=== PATIENT | male | born 1990 | race Caucasian/White ===

== ENCOUNTER → 2017-10-07 | Outpatient (CLI) | payer BC, MEDICAID ==
[2017-10-07 11:10] LABS: CHOLESTEROL 126.04 mg/dL (0-200); TRIGLYCERIDES 47 mg/dL (<150)
[2017-10-07 11:21] LABS: DIRECT LDL 77 mg/dL (<100)
== END ==
LOC: OD 09:51
PROVIDERS: ATTEND Psychiatry & Neurology Psychiatry
DX: F41.0 Panic disorder [episodic paroxysmal anxiety] (principal)
CPT/HCPCS: 36415; 80061; 83036

== ENCOUNTER 2017-11-08 04:28 | Inpatient (IN) | payer BC, MEDICARE, MEDICAID ==
[2017-11-08] MEDS ORDERED: FENTANYL CITRATE INJ/PF 100 MCG/2 ML AMPUL IV ONE (04:59)
[2017-11-08] MEDS ORDERED: ONDANSETRON HCL INJ/PF 4 MG/2 ML SDV IV ONE (04:59)
[2017-11-08] MEDS ORDERED: ERTAPENEM SODIUM INJ 1 GM VIAL IV ONE (05:00)
[2017-11-08] MEDS ORDERED: ONDANSETRON 4 MG TAB.RAPDIS PO ONE (05:01)
--- NOTE | 2017-11-08 05:06 | ER Document Report ---
ED General - General Chief Complaint: Abdominal Pain Stated Complaint: ABDOMINAL PAIN Time Seen by Provider: 11/08/17 04:59 Notes: Patient is a 27-year-old male presents with complaint of right upper quadrant abdominal pain, vomiting, diarrhea, and feeling unwell for 4 days. Mother says he does have history of gallbladder disease. He was at [facility] proximal 5 years ago. At that time an ERCP which improved his symptoms. They decided not to take his gallbladder that time. Since that is been doing well until 4 days ago was having some vomiting diarrhea. Onset is difficult to tell how sick he was until today. Today he started having weakness. He comes in diaphoretic and sweaty and septic appearing. Patient points to his right upper quadrant as the location pain. Patient has a history of schizophrenia and autism. Patient's only allergy is anaphylaxis to IV contrast dye. TRAVEL OUTSIDE OF THE [place] IN LAST 30 DAYS: No - Related Data Allergies/Adverse Reactions: No Known Drug Allergies Allergy (Verified 05/26/12 16:26) Past Medical History - Social History Smoking Status: Never Smoker Frequency of alcohol use: None Drug Abuse: None Family History: Reviewed & Not Pertinent - Past Medical History Cardiac Medical History: Denies: Hx Coronary Artery Disease, Hx Heart Attack, Hx Hypertension Pulmonary Medical History: Denies: Hx Asthma, Hx Bronchitis, Hx COPD, Hx Pneumonia Neurological Medical History: Denies: Hx Cerebrovascular Accident, Hx Seizures Musculoskeltal Medical History: Denies Hx Arthritis Past Surgical History: Denies: Hx Pacemaker - Immunizations Hx Diphtheria, Pertussis, Tetanus Vaccination: Yes Review of Systems - Review of Systems Notes: My Normal Review Basic REVIEW OF SYSTEMS: CONSTITUTIONAL : Denies fever, chills, or sweats. Denies recent illness. EENT: Denies eye, ear, throat, or mouth pain or symptoms. Denies nasal or sinus congestion. CARDIOVASCULAR: Denies chest pain. RESPIRATORY: Denies cough, cold, or chest congestion. Denies shortness of breath, difficulty breathing, or wheezing. GASTROINTESTINAL: Normal pain, vomiting, diarrhea. GENITOURINARY: Denies difficulty urinating, painful urination, burning, frequency, or blood in urine. MUSCULOSKELETAL: Denies neck or back pain or joint pain or swelling. SKIN: Denies rash or skin lesions. NEUROLOGICAL: Denies altered mental status or loss of consciousness. Denies headache. Denies weakness or paralysis or loss of use of either side. Denies problems with gait or speech. Denies sensory or motor loss. ALL OTHER SYSTEMS REVIEWED AND NEGATIVE. Physical Exam - Vital signs Vitals: Temp Pulse Resp BP Pulse Ox 97.9 F 160 H 22 H 96/42 L 100 11/08/17 04:35 11/08/17 04:35 11/08/17 04:35 11/08/17 04:35 11/08/17 04:35 - Notes Notes: General Appearance: Well nourished, alert, cooperative, moderate acute distress , mild to moderate obvious discomfort. Patient is diaphoretic and septic appearing. Vitals: reviewed, See vital signs table. Head: no swelling or tenderness to the head Eyes: PERRL, EOMI, Conjuctiva clear Mouth: No decreasd moisture Lungs: No wheezing, No rales, No rhonci, No accessory muscle use, good air exchange bilaterally. Heart: tachycardiac rate, Regular rythm, No murmur, no rub Abdomen: Normal BS, soft, No rigidity, moderate right upper quadrant abdominal tenderness to palpation., No guarding, no rebound, no abdominal masses, no organomegaly Extremities: strength 5/5 in all extremities, good pulses in all extremities, no swelling or tenderness in the extremities, no edema. Skin: warm, dry, appropriate color, no rash Neuro: speech clear, oriented x 3, normal affect, responds appropriately to questions. Course - Re-evaluation Re-evalutation: 11/08/17 05:04 Patient presents septic appearing. He brought straight back to room. Patient had poor peripheral IV access and therefore placed a 20-gauge peripheral IV in the right antecubital fossa under ultrasound guidance. He had good dark blood return and flushes easily. Blood was obtained. Patient's blood pressure systolically is in the 80s and he is very septic appearing. Therefore started bolusing with 2 L of IV fluids. I did do a bedside ultrasound looking at his right upper quadrant. It is obese and is difficult to see his gallbladder. I have ordered an official ultrasound and we have I called fish and wildlife technician asking them to do the ultrasound at bedside. I have ordered pain medicine for the patient. I have ordered Invanz as suspect this is most likely gallbladder or intra-abdominal infection causing his sepsis and symptoms. He does not have any peritoneal signs at this time. He is answering questions appropriately. Patient's blood pressure and now 15 minutes after start a bolus is 96/57 heart rate has decreased from 140s-120s. 11/08/17 06:22 Patient's blood pressure started to down trend again. I ordered a liter of LR which is running. I just ordered a second liter of LR which is now being hung. If his pressures remain low despite the fluids than I will need to place a central line and start pressors. Clinically the patient does look improved. He is regaining some of his color. His heart rate has trended down to 109. He is no longer in significant pain. 11/08/17 06:35 Patient's US shows possible evidence of cholecystits. I strongly suspect cholecystitis based on his history and physical exam. Dr. Scruggs, general surgeon, was down here seeing another patient for bowel obstruction. A new surgeon comes on in 25 minutes at [address] Scruggs of the patient and he requests that I call Dr. Armendariz at 7 AM. 11/08/17 07:52 Central line was placed. Chest x-ray shows good placement of central line. I did speak with Dr. Armendariz he did come evaluate the patient and is admitting the patient. Patient is received in advance. He is received total 4 L of fluids. His I did order the Levophed but his blood pressure systolic is staying in the 90s at this time and therefore Dr. Armendariz wants to hold off the Levophed for now. Patient will be admitted to surgical service under Dr. Armendariz. - Vital Signs Vital signs: Temp Pulse Resp BP Pulse Ox 97.9 F 160 H 30 H 90/56 L 96 11/08/17 04:35 11/08/17 04:35 11/08/17 06:41 11/08/17 06:41 11/08/17 06:41 - Laboratory Result Diagrams: 11/08/17 04:55 11/08/17 04:55 Laboratory results interpreted by me: 11/08/17 11/08/17 11/08/17 04:55 04:55 04:55 WBC 18.4 H Hgb 12.6 L Hct 36.7 L Plt Count 149 L Seg Neuts % (Manual) 90 H Lymphocytes % (Manual) 2 L Abs Neuts (Manual) 17.1 H Abs Lymphs (Manual) 0.4 L Potassium 3.2 L Carbon Dioxide 19 L Anion Gap 21 H Creatinine 1.62 H Est GFR (Non-Af Amer) 52 L Glucose 124 H Lactic Acid 2.3 H Total Bilirubin 3.2 H Direct Bilirubin 2.6 H - EKG Interpretation by Me Additional EKG results interpreted by me: 11/08/17 05:04 EKG is reviewed and interpreted by me. EKG shows sinus tachycardia with rate of [address] segment elevation or depression. No ischemic T-wave inversions. MD interval, QRS duration, QTc intervals are within normal range. No old EKG available for comparison. Procedures - Central Line Right Internal jugular Consent obtained: Yes - verbal from mother Central line pre-insertion: Sterile PPE donned, Chloraprep applied, Sterile drapes applied Central line lumen type: Triple Anesthetic type: 1% Lidocaine mL's of anesthesia: 2 Ultrasound guided: Yes CM at insertion site: 16 Line secured with sutures: Yes Central line post-insertion: Blood return from lumens, Biopatch applied, Sutured , Sterile dressing applied, Position confirmed w/ CXR Number of attempts: 2 Complications: No Notes: 11/08/17 07:53 On first attempt I get good blood return but the wire would not feed. I therefore removed the needle and cannulated the vein a second time and the wire fed fine the second time and central line was placed. - Additional Procedures iv Additional Procedures: IV insertion Notes: 11/08/17 08:36 Peripheral IV was inserted under ultrasound guidance in the right antecubital area due to patient having per prophylaxis and multiple failed attempts using ultrasound by nursing staff. 20-gauge IV was inserted and withdrawal dark nonpulsatile blood. It did flush without any difficulty. Critical Care Note - Critical Care Note Total time excluding time spent on procedures (mins): 60 Comments: Critical care time for this patient not including time spent on procedures is approximately 60 minutes due to frequent reevaluations, Discharge - Discharge Clinical Impression: Abdominal pain Qualifiers: Abdominal location: right upper quadrant Qualified Code(s): R10.11 - Right upper quadrant pain Sepsis Qualifiers: Sepsis type: sepsis due to unspecified organism Qualified Code(s): A41.9 - Sepsis, unspecified organism Condition: Stable Disposition: ADMITTED INPATIENT Admitting Provider: Surgicalist Unit Admitted: ICU
[2017-11-08] MEDS: NORMAL SALINE 1000 ML 1,000 ML IV PRN ×2 (05:10→05:14)
[2017-11-08 05:23] LABS: VENOUS BLOOD BASE EXCESS -2.6 mmol/L; VENOUS BLOOD HCO3 21.6 mmol/L (20-32); VENOUS BLOOD PCO2 35.9 mmHg (35-63); VENOUS BLOOD PH 7.4 (7.30-7.42)
[2017-11-08 05:25] LABS: HEMATOCRIT 36.7 % (37.9-51.0); HEMOGLOBIN 12.6 g/dL (13.5-17.0); MEAN CORPUSCULAR HEMOGLOBIN 28.7 pg (27.0-33.4); MEAN CORPUSCULAR HGB CONC 34.4 g/dL (32.0-36.0); MEAN CORPUSCULAR VOLUME 83 fl (80-97); PLATELET COUNT 149 10^3/uL (150-450); RED CELL DISTRIBUTION WIDTH 13.4 % (11.5-14.0); WHITE BLOOD COUNT 18.4 10^3/uL (4.0-10.5)
[2017-11-08 05:54] LABS: ALANINE AMINOTRANSFERASE 49 U/L (21-72); ALBUMIN 3.7 g/dL (3.5-5.0); ALKALINE PHOSPHATASE 125 U/L (38-126); ASPARTATE AMINO TRANSFERASE 55 U/L (17-59); BILIRUBIN,DIRECT 2.6 mg/dL (0.0-0.4); BLOOD UREA NITROGEN 14 mg/dL (7-20); CALCIUM 8.5 mg/dL (8.4-10.2); GLUCOSE 124 mg/dL (75-110); LIPASE 95.8 U/L (23-300); POTASSIUM 3.2 mmol/L (3.6-5.0)
[2017-11-08 05:58] LABS: ABSOLUTE LYMPHOCYTES# (MANUAL) 0.4 10^3/uL (0.5-4.7); ABSOLUTE MONOCYTES # (MANUAL) 0.9 10^3/uL (0.1-1.4); ABSOLUTE NEUTROPHILS# (MANUAL) 17.1 10^3/uL (1.7-8.2); BAND NEUTROPHILS % (MANUAL) 3 % (3-5); BASOPHILS % (MANUAL) 0 % (0-2); EOSINOPHILS % (MANUAL) 0 % (0-6); LYMPHOCYTES % (MANUAL) 2 % (13-45); MONOCYTES % (MANUAL) 5 % (3-13); SEGMENTED NEUTROPHILS % (MAN) 90 % (42-78); TOTAL CELLS COUNTED 100
[2017-11-08 05:59] LABS: CARBON DIOXIDE 19 mmol/L (22-30); CHLORIDE 101 mmol/L (98-107); SODIUM 140.8 mmol/L (137-145)
[2017-11-08 06:00] LABS: PLATELET COMMENT DECREASED; RBC MORPHOLOGY COMMENT NORMO-CYTIC/CHROMIC
[2017-11-08] MEDS ORDERED: RINGERS SOLUTION,LACTATED 1,000 ML IV ONE ×2 (06:08→06:21)
[2017-11-08 06:19] LABS: ANION GAP 21 (5-19)
--- NOTE | 2017-11-08 06:32 | RADIOLOGY REPORT (SQ) ---
EXAM DESCRIPTION: 11/08/2017 5:29 AM CDT CLINICAL HISTORY: 27 years, Male, RUQ abdominal pain COMPARISON: None. TECHNIQUE: Utilizing a curved array transducer, real-time ultrasound evaluation of the right upper quadrant was performed. Color Doppler imaging was used to assess vascular flow. FINDINGS: The liver is normal in size and morphology measuring 16.9 cm in craniocaudal dimension. There is normal echogenicity of the hepatic parenchyma. There are no infiltrating or discrete hepatic masses identified. There is normal hepatopetal flow in the main portal vein. The gallbladder is well visualized and distended. The gallbladder wall measures up to 3.0 mm in thickness. There is layering biliary sludge dependent portion of the gallbladder. There is a 2.2 cm echogenic shadowing gallstone There is no pericholecystic fluid. The patient had a positive ultrasonographic Dennis's sign. The common bile duct measures 3.0 mm in diameter. Limited images of the pancreas demonstrate no gross abnormalities. The proximal aorta is not well-visualized. The mid aorta measures 1.6 cm. The distal aorta measures 1.5 cm. There is normal smooth tapering of the abdominal aorta. The IVC is grossly normal in appearance. The right kidney is normal in size measuring 13.6 cm. The right renal cortex measures 1.2 cm in thickness. There are no shadowing right renal calculi or evidence of hydronephrosis. There are no infiltrating or discrete right renal masses. There is normal echogenicity of the right kidney relative to the adjacent liver. IMPRESSION: Cholelithiasis with borderline gallbladder wall thickening and positive ultrasonographic Dennis's sign. Further evaluation with HIDA scan may be beneficial.
[2017-11-08] MEDS ORDERED: DEXTROSE 5%-WATER 250 ML with NOREPINEPHRINE BITARTRATE 4 MG IV PRN ×4 (07:09→18:14)
--- NOTE | 2017-11-08 07:28 | RADIOLOGY REPORT (SQ) ---
EXAM DESCRIPTION: CHEST SINGLE VIEW COMPLETED DATE/TIME: 11/08/2017 7:17 am REASON FOR STUDY: central line placement COMPARISON: None. EXAM PARAMETERS: NUMBER OF VIEWS: One view. TECHNIQUE: Single frontal radiographic view of the chest acquired. RADIATION DOSE: NA LIMITATIONS: None. FINDINGS: LUNGS AND PLEURA: No opacities, masses or pneumothorax. No pleural effusion. MEDIASTINUM AND HILAR STRUCTURES: No masses. Contour normal. HEART AND VASCULAR STRUCTURES: Heart normal in size. Normal vasculature. BONES: No acute findings. HARDWARE: A right-sided central line is present with the tip in the superior vena cava. No pneumotho rax. OTHER: No other significant finding. IMPRESSION: Right jugular central line tip superior vena cava. No pneumothorax. No focal infiltrates TECHNICAL DOCUMENTATION: JOB ID: [id number]- All Rights Reserved Reading location - IP/workstation name: [email or web address]
[2017-11-08] MEDS ORDERED: NOREPINEPHRINE BITARTRATE INJ/PF 4 MG/4 ML SDV IV ONE (08:00)
[2017-11-08 08:01] LABS: BILIRUBIN,TOTAL 3.2 mg/dL (0.2-1.3)
[2017-11-08] MEDS ORDERED: NORMAL SALINE 1000 ML 1,000 ML IV PRN (08:08)
[2017-11-08] MEDS ORDERED: ONDANSETRON HCL INJ/PF 4 MG/2 ML SDV IV PRN ×3 (08:09→17:29)
[2017-11-08] MEDS ORDERED: RINGERS SOLUTION,LACTATED 1,000 ML IV PRN ×3 (08:11→21:50)
[2017-11-08] MEDS ORDERED: NORMAL SALINE INJ/PF 0.9% 10 ML SDV IV PRN (08:14)
--- NOTE | 2017-11-08 08:28 | PDOC H&P ---
History of Present Illness Admission Date/PCP: 11/08/17 08:09 STEF LYNN MD Patient complains of: Abdominal pain nausea and vomiting History of Present Illness: BILL BACON is a 27 year old male Admitted to the [facility] emergency department via ground rescue. History of presenting illness provided by since mother as patient is been sedated. Apparently for approximately 1 week patient has had intermittent abdominal pain nausea and vomiting. Continue to eat throughout the week. Yesterday he developed increased weakness, and last night became pale. He collapsed and was found on the floor with elevated heart rate. Ground rescue was called and the patient was brought and found to be in septic shock with tachycardia and hypotension. Patient received 4 L of crystalloid, with stabilization of his hemodynamic parameters. A gallbladder ultrasound showed gallstones, thickened gallbladder wall, common bile duct at 3 mm. White blood cell count elevated liver function studies elevated. Surgery was consulted and the patient and family were advised admission. Relevant past medical history significant for 5 years ago patient presenting to [facility] with clinical picture consistent with cholelithiasis , choledocholithiasis. Patient was transferred to [facility] where he underwent ERCP, sphincterotomy, extraction of common duct sludge. The patient was transferred back to [facility]. From there the patient was transferred to [facility]; history of these events provided by patient's mother, and medical record. Apparently the patient was hospitalized at [facility] for approximately 3 weeks 1 week in the surgical ICU with sepsis. Mother states patient had a biloma which was eventually drained. Patient discharged home with drain, and drain removed. Patient was followed by Dr. Jed Sanchez, general surgeon. Apparently the patient did not undergo interval cholecystectomy. Since that time the patient has had no further biliary tract issues until this past week. Past Medical History Past Medical History: As burgers, schizophrenia, autism; followed by Dr. De Jesus. Cardiac Medical History: Denies: Coronary Artery Disease, Myocardial Infarction, Hypertension Pulmonary Medical History: Denies: Asthma, Bronchitis, Chronic Obstructive Pulmonary Disease (COPD), Pneumonia Neurological Medical History: Denies: Seizures Musculoskeltal Medical History: Denies: Arthritis Hematology: Denies: Anemia Past Surgical History Past Surgical History: Choledocholithiasis, cholelithiasis, biloma, history of abdominal drain placement 2012. Past Surgical History: Denies: Pacemaker Social History Information Source: Parent Lives with: Family Smoking Status: Never Smoker Frequency of Alcohol Use: None Hx Recreational Drug Use: No Hx Prescription Drug Abuse: No Family History Family History: Reviewed & Not Pertinent, Other - Significant for biliary tract disease with gallbladder removed patient's mother Parental Family History Reviewed: Yes Children Family History Reviewed: Yes Sibling(s) Family History Reviewed.: Yes Medication/Allergy Home Medications: Benztropine Mesylate [Cogentin 1 Mg Tablet] 1 mg PO BID 05/26/12 Clonazepam [Klonopin 1 mg Tablet] PO TID 05/26/12 Duloxetine HCl [Cymbalta] 1 PO BID 05/26/12 Metformin HCl [Glucophage 1000 mg Tablet] PO BID 05/26/12 Omeprazole [Prilosec 40 mg Capsule] 40 mg PO DAILY 05/26/12 Risperidone [Risperdal] 2 PO BID 05/26/12 Topiramate [Topamax] 200 mg PO BID 05/26/12 Allergies/Adverse Reactions: No Known Drug Allergies Allergy (Verified 05/26/12 16:26) Review of Systems ROS unobtainable: Other - Unable to obtain as patient is been sedated with narcotic medication. Physical Exam Vital Signs: Temp Pulse Resp BP Pulse Ox 97.9 F 160 H 30 H 90/56 L 96 11/08/17 04:35 11/08/17 04:35 11/08/17 06:41 11/08/17 06:41 11/08/17 06:41 General appearance: PRESENT: other - Sedated with narcotic medication Head exam: PRESENT: atraumatic Eye exam: PRESENT: other - Unable to assess EOM Ear exam: PRESENT: normal external ear exam Mouth exam: PRESENT: dry mucosa Neck exam: PRESENT: full ROM Respiratory exam: PRESENT: chest wall tenderness Cardiovascular exam: PRESENT: other - Mildly tender to deep palpation; no rigidity; exam compounded by patient having received narcotic medication. Pulses: PRESENT: normal carotid pulses Vascular exam: PRESENT: normal capillary refill GI/Abdominal exam: PRESENT: other - See above Rectal exam: PRESENT: deferred Extremities exam: PRESENT: other - Scattered maculopapular rash left proximal thigh and knee Neurological exam: PRESENT: other - Sedated; unable to participate in neuropsych exam Results Impressions: Chest X-Ray 11/08/17 00:00 IMPRESSION: Right jugular central line tip superior vena cava. No pneumothorax. No focal infiltrates Abdomen Ultrasound 11/08/17 05:00 IMPRESSION: Cholelithiasis with borderline gallbladder wall thickening and positive ultrasonographic Dennis's sign. Further evaluation with HIDA scan may be beneficial. Assessment & Plan - Diagnosis (1) Septic shock Is this a current diagnosis for this admission?: Yes Plan: Clinical impression: acute septic shock likely due to cholelithiasis with cholecystitis; high suspicion for choledocholithiasis Recommendations: 1. Continue fluid resuscitation and intravenous antibiotics; admitted to surgical service. 2. Obtain CT scan of the abdomen and pelvis with IV and oral contrast to better delineate biliary tract anatomy, especially in light of patient undergoing previous ERCP, sphincterotomy, drain placement in 2013. Patient will likely require interval cholecystectomy; patient may require other intervention pending results of imaging study 3. I have asked the hospital service to assist with management of antipsychotic medications. 4. We have discussed the above with patient's mother she is the next of kin providing the clinical history; patient not awake enough to participate in the discussion and treatment plan. (2) Cholelithiasis Qualifiers: Cholelithiasis location: gallbladder Is this a current diagnosis for this admission?: Yes (3) Elevated LFTs Is this a current diagnosis for this admission?: Yes (4) Obesity Qualifiers: Obesity type: due to excess calories Is this a current diagnosis for this admission?: Yes (5) Autism Is this a current diagnosis for this admission?: Yes (6) Schizophrenia Is this a current diagnosis for this admission?: Yes (7) History of endoscopic retrograde cholangiopancreatography Is this a current diagnosis for this admission?: Yes - Time Time Spent: 50 to 70 Minutes Critical Time spent with patient: 15-24 minutes Medications reviewed and adjusted accordingly: Yes Anticipated discharge: Home - Inpatient Certification Based on my medical assessment, after consideration of the patient's comorbidities, presenting symptoms, or acuity I expect that the services needed warrant INPATIENT care.: Yes I certify that my determination is in accordance with my understanding of Medicare's requirements for reasonable and necessary INPATIENT services [42 CFR 412.3e].: Yes Medical Necessity: Need For IV Fluids, Need for Pain Control, Need for IV Antibiotics, Need for Surgery
--- NOTE | 2017-11-08 08:43 | PDOC CONSULTATION ---
Consultation Consult Date: 11/08/17 Attending physician:: KIRBY MCLEAN History of Present Illness Admission Date/PCP: 11/08/17 08:09 STEF LYNN MD History of Present Illness: BILL BACON is a 27 year old male patient with autism, brought his chief complaint of right upper quadrant pain, vomiting, diarrhea and feeling unwell for 4 days. History is obtained from the ER attending note. Mother states he does have a history of gallbladder disease. Reportedly he was at [facility] approximately 5 years ago and they decided to do an ERCP which improved his symptoms. They decided not to take out his gallbladder at that time. He comes in diaphoretic and septic appearing patient has a history of schizophrenia and autism. His blood work shows leukocytosis of 18,000, creatinine of 1.62, total bilirubin is 3.2 and his ultrasound reported as borderline gallbladder thickening suggestive of cholecystitis. At presentation patient was hypotensive tachycardic with heart rate of 160 and diaphoretic. Patient has been managed aggressively with fluid and antibiotics. The hospitalist service consulted for comanagement. Past Medical History Medical History: Other - Autism and schizophrenia Cardiac Medical History: Denies: Coronary Artery Disease, Myocardial Infarction, Hypertension Pulmonary Medical History: Denies: Asthma, Bronchitis, Chronic Obstructive Pulmonary Disease (COPD), Pneumonia Neurological Medical History: Denies: Seizures Musculoskeltal Medical History: Denies: Arthritis Hematology: Denies: Anemia Past Surgical History Past Surgical History: Denies: Pacemaker Social History Lives with: Family Smoking Status: Never Smoker Frequency of Alcohol Use: None Hx Recreational Drug Use: No Drugs: None Hx Prescription Drug Abuse: No - Advance Directive Resuscitation Status: Full Code Family History Family History: Reviewed & Not Pertinent, Other - Significant for biliary tract disease with gallbladder removed patient's mother Parental Family History Reviewed: Yes Children Family History Reviewed: Yes Sibling(s) Family History Reviewed.: Yes Medication/Allergy Home Medications: Benztropine Mesylate [Cogentin 1 Mg Tablet] 1 mg PO BID 05/26/12 Clonazepam [Klonopin 1 mg Tablet] PO TID 05/26/12 Duloxetine HCl [Cymbalta] 1 PO BID 05/26/12 Metformin HCl [Glucophage 1000 mg Tablet] PO BID 05/26/12 Omeprazole [Prilosec 40 mg Capsule] 40 mg PO DAILY 05/26/12 Risperidone [Risperdal] 2 PO BID 05/26/12 Topiramate [Topamax] 200 mg PO BID 05/26/12 Allergies/Adverse Reactions: No Known Drug Allergies Allergy (Verified 05/26/12 16:26) Review of Systems ROS unobtainable: Due to mental status Physical Exam Vital Signs: Temp Pulse Resp BP Pulse Ox 97.9 F 160 H 30 H 90/56 L 96 11/08/17 04:35 11/08/17 04:35 11/08/17 06:41 11/08/17 06:41 11/08/17 06:41 General appearance: PRESENT: mild distress Head exam: PRESENT: atraumatic Eye exam: PRESENT: conjunctiva pink Mouth exam: PRESENT: dry mucosa Respiratory exam: PRESENT: clear to auscultation tolu. ABSENT: rales, rhonchi, wheezes Cardiovascular exam: PRESENT: RRR. ABSENT: diastolic murmur, rubs, systolic murmur GI/Abdominal exam: PRESENT: tenderness - Right upper quadrant, other Results Impressions: Chest X-Ray 11/08/17 00:00 IMPRESSION: Right jugular central line tip superior vena cava. No pneumothorax. No focal infiltrates Abdomen Ultrasound 11/08/17 05:00 IMPRESSION: Cholelithiasis with borderline gallbladder wall thickening and positive ultrasonographic Dennis's sign. Further evaluation with HIDA scan may be beneficial. Assessment & Plan - Diagnosis (1) Severe sepsis Is this a current diagnosis for this admission?: Yes Plan: Patient has leukocytosis, tachycardia, hypotension and cholecystitis reportedly. Patient is being hydrated aggressively and has been started on Zosyn. (2) Acute kidney injury Is this a current diagnosis for this admission?: Yes Plan: We will continue hydration (3) Schizophrenia Is this a current diagnosis for this admission?: Yes Plan: Continue home medication
[2017-11-08 08:57] LABS: AMORPHOUS SEDIMENT,URINE TRACE /HPF; APPEARANCE,URINE CLEAR; BILIRUBIN,URINE NEGATIVE (NEGATIVE); COLOR,URINE YELLOW; GLUCOSE, URINE NEGATIVE (NEGATIVE); KETONES,URINE NEGATIVE (NEGATIVE); LEUKOCYTE ESTERASE,URINE NEGATIVE (NEGATIVE); NITRITE,URINE NEGATIVE (NEGATIVE); PROTEIN,URINE NEGATIVE (NEGATIVE); URINE SPECIFIC GRAVITY 1.003
--- NOTE | 2017-11-08 09:13 | EKG REPORT ---
SEVERITY:- ABNORMAL ECG - SINUS TACHYCARDIA BORDERLINE LEFT AXIS DEVIATION NONSPECIFIC T ABNORMALITIES, INFERIOR LEADS : Confirmed by: Monica Presley MD 08-Nov-2017 09:13:19
[2017-11-08] MEDS: FAMOTIDINE INJ/PF 20 MG/2 ML SDV IV SCH ×2 (11:09→21:10)
--- NOTE | 2017-11-08 11:44 | RADIOLOGY REPORT (SQ) ---
EXAM DESCRIPTION: CT ABD/PELVIS ORAL ONLY COMPLETED DATE/TIME: 11/08/2017 11:30 am REASON FOR STUDY: Rule out biloma COMPARISON: Right upper quadrant ultrasound 11/08/2017 ERCP 05/26/2012 Right upper quadrant ultrasound 07/09/2009 TECHNIQUE: CT scan of the abdomen and pelvis performed without intravenous contrast. Patient drank oral contrast. Images reviewed with lung, soft tissue, and bone windows. Reconstructed coronal and s agittal MPR images reviewed. All images stored on PACS. All CT scanners at this facility use dose modulation, iterative reconstruction, and/or weight based d osing when appropriate to reduce radiation dose to as low as reasonably achievable (ALARA). [facility]: Dose Right [facility]: CareDose [facility]: Dose Right [facility]: Teradose 4D [facility]: Daily Aisle RADIATION DOSE: CT Rad equipment meets quality standard of care and radiation dose reduction techniq ues were employed. CTDIvol: 24.0 mGy. DLP: 1509 mGy-cm.mGy. LIMITATIONS: None. FINDINGS: LOWER CHEST: No significant findings. No nodules or infiltrates. Minimal gastroesophageal reflux of contrast into the distal esophagus. NON-CONTRASTED LIVER, SPLEEN, ADRENALS: Liver normal size, grossly normal density. No masses or bili nieves ductal dilatation. Mild splenomegaly, 16 cm in greatest craniocaudad length. Adrenal glands unr emarkable. PANCREAS: No masses. No peripancreatic inflammatory changes. GALLBLADDER: Distended gallbladder. Stones are present in the gallbladder neck. There is pericholec ystic fluid and stranding of the fat around the gallbladder in the right upper quadrant worrisome for acute cholecystitis. This report was discussed with Dr. Armendariz. RIGHT KIDNEY AND URETER: No suspicious masses. Assessment limited by lack of IV contrast. No signif icant calcifications. No hydronephrosis or hydroureter. LEFT KIDNEY AND URETER: No suspicious masses. Assessment limited by lack of IV contrast. No signifi cant calcifications. No hydronephrosis or hydroureter. AORTA AND RETROPERITONEUM: No aneurysm. No retroperitoneal masses or adenopathy. BOWEL AND PERITONEAL CAVITY: Patient drank oral contrast. No evidence of bowel obstruction. No free intraperitoneal air or fluid. APPENDIX: Surgically absent PELVIS, BLADDER, AND ABDOMINAL WALL:Chatman catheter in the bladder. No free intraperitoneal air or fl uid. No pelvic masses or adenopathy. BONES: No significant findings. OTHER: No other significant finding. IMPRESSION: Stones in the gallbladder with pericholecystic inflammatory change worrisome for acute c holecystitis. Findings discussed with patient's attending surgeon COMMENT: Quality ID # [id number]: Final reports with documentation of one or more dose reduction techniques (e.g., Automated exposure control, adjustment of the mA and/or kV according to patient size, use of iterative reconstruction technique) TECHNICAL DOCUMENTATION: JOB ID: [id number] [employer]- All Rights Reserved Reading location - IP/workstation name: [email or web address]
[2017-11-08] MEDS ORDERED: ACETAMINOPHEN 650 MG SUPP.RECT PR ONE (11:48)
[2017-11-08] MEDS: POTASSI CL 20 MEQ/50 ML RIDER 20 MEQ/50 ML RTUPB IV SCH ×3 (11:58→18:45)
[2017-11-08] MEDS ORDERED: ACETAMINOPHEN 650 MG SUPP.RECT PR PRN (12:15)
[2017-11-08] MEDS ORDERED: INSULIN LISPRO 100 UNIT/ML 3 ML VIAL SUBCUT PRN (12:23)
[2017-11-08] MEDS ORDERED: DEXTROSE 50%-WATER 25 GM/50 ML DISP.SYRIN IV PRN ×2 (12:23)
[2017-11-08] MEDS ORDERED: DEXTROSE 40% GEL 15 GM TUBE PO PRN ×2 (12:23)
[2017-11-08] MEDS ORDERED: GLUCAGON,HUMAN RECOMB 1 MG INJ IM PRN (12:23)
[2017-11-08] MEDS ORDERED: CLONAZEPAM 1 MG TABLET PO PRN (12:29)
[2017-11-08] MEDS ORDERED: BUPIVACAINE HCL 0.25 % INJ/PF (2.5 MG/1 ML) 30 ML VIAL ONE (13:23)
[2017-11-08] MEDS: PIPERACILLIN SODIUM/TAZOBACTAM 3.375 GM in NORMAL SALINE 100 ML IV SCH ×2 (13:39→21:11)
[2017-11-08] MEDS ORDERED: IBUPROFEN 800 MG in NORMAL SALINE 250 ML IV ONE (14:00)
[2017-11-08] MEDS ORDERED: FENTANYL CITRATE INJ/PF 100 MCG/2 ML AMPUL ONE (14:41)
[2017-11-08] MEDS ORDERED: MIDAZOLAM 2 MG/2 ML INJ ONE ×3 (14:41→16:40)
[2017-11-08] MEDS ORDERED: PROPOFOL INJ 200 MG/20 ML VIAL IV ONE (14:42)
[2017-11-08] MEDS ORDERED: HYDROMORPHONE HCL INJ/PF 2 MG/ML AMPULE ONE (14:43)
[2017-11-08] MEDS ORDERED: KETAMINE HCL INJ 500 MG/10 ML VIAL ONE (14:53)
[2017-11-08] MEDS ORDERED: ACETAMINOPHEN 1,000 MG/100 ML RTUPB IV ONE (15:16)
[2017-11-08] MEDS ORDERED: FENTANYL CITRATE INJ/PF 100 MCG/2 ML AMPUL IV PRN ×3 (15:39)
[2017-11-08] MEDS ORDERED: OXYCODONE-ACETAMINOPHEN 5-325 MG TABLET PO PRN ×2 (15:39)
[2017-11-08] MEDS ORDERED: PROMETHAZINE HCL INJ 25 MG/1 ML VIAL IV PRN ×2 (15:39)
[2017-11-08] MEDS ORDERED: DIPHENHYDRAMINE HCL 50 MG/ML VIAL IV PRN (15:39)
[2017-11-08] MEDS ORDERED: BUPIVACAINE INJ/PF LIPOSOME/PF 266 MG/20 ML SDV ONE (16:33)
[2017-11-08] MEDS ORDERED: KETOROLAC TROMETHAMINE INJ/PF 30 MG/1 ML SDV IV PRN (17:29)
[2017-11-08] MEDS ORDERED: MIDAZOLAM HCL 50 MG/100 ML RTUINJ ONE (17:46)
--- NOTE | 2017-11-08 17:49 | Operative Report ---
Operative Report DATE OF SURGERY: 11/08/17 PREOPERATIVE DIAGNOSIS: 1. Acute cholecystitis with cholelithiasis. 2. Remote history of subhepatic drain secondary to bile leak. 3. Allergies to IV and oral contrast. 4. History of schizophrenia ; history of as burgers syndrome. 4. Septic shock POSTOPERATIVE DIAGNOSIS: Same OPERATION: 1. Laparoscopic conversion to open cholecystectomy. 2. Image of subhepatic space. 3. Extremely difficult modifier SURGEON: LES ARNOLD ANESTHESIA: GA TISSUE REMOVED OR ALTERED: Gallbladder in fragments with contents COMPLICATIONS: None ESTIMATED BLOOD LOSS: 650 cc INTRAOPERATIVE FINDINGS: See below PROCEDURE: The patient was taken from the preop holding area after coming from the intensive care unit to the main operating room where general anesthesia was in induced. A Chatman catheter had been previously inserted. The abdomen was exposed, clipped of hair, prepped and draped sterile fashion. Surgical plan and surgical timeout were conducted. Instrumentation was set up for laparoscopic cholecystectomy; however given the acute nature of the patient's cholecystitis, and septic shock, as well as the history of previous cystitis, and bile leak with drain placement 5 years ago, we expected a high likelihood of conversion to open cholecystectomy and this was discussed with the patient's family preoperatively. Skin was anesthetized with quarter percent Marcaine at the subumbilical subxiphoid and right upper quadrant positions. A supraumbilical incision was made with a knife Veress needle inserted the peritoneal cavity pneumoperitoneum was established. Veress needle was removed, and a 5 mm ports inserted and a 5 mm flexible everted. Under direct visualization 2 additional 5 Douglas ports were inserted when the subxiphoid position and one in the subcostal position Findings were significant for safe entry of the Veress needle and ports into the peritoneal cavity with no evidence of bleeding or bowel injury The right upper quadrant was socked in with the omentum plastered to the right lobe of the liver. We brought on the field a harmonic scalpel and using name as well as hook cautery dissection, multiple adhesions between the right anterior abdominal wall, right lobe of the liver and the omentum were taken down. We now were able to see very small portion of the fundus of the gallbladder. Approximately 30 minutes with the dissection of the omentum off of the gallbladder resulted in a moderate amount of bleeding, and only minimal progress in terms of fundic exposure. For decided to convert to an open procedure. All ports removed in the peritoneal cavity, and a standard subcostal incision was made incorporating the subxiphoid port site in the right upper quadrant port site. The incision was approximately 12 cm long. Subcutaneous tissue fascia dominant wall musculature divided as encountered. The peritoneal cavity was exposed, and packed with several laps. We establish Bookwalter retractor system. This enabled us to have optimal exposure of the subcostal space. We now proceeded to remove the omentum which had been removed only partially during the laparoscopic portion of the operation. There was also a portion of the transverse colon anteriorly and apically which needed to be active off of the inferior surface of the liver. Finally we are able to free the inferior surface of the liver from the inflamed omental caking. This enabled us to get the Bookwalter retractor system into position. The gallbladder was massively distended. We used a variety of instruments but ultimately ended up using her hands and a large Yaima clamp to grasp it. Using a combination of electrocautery, and suction dissection, the gallbladder was shucked out from the undersurface of the right lobe. He was really no way to perform this portion of the operation elegantly. We ended up packing off the inferior raw surface of the liver with a lap pad and held in place with the retractor. We continue to work in a circumferential fashion mostly using blunt dissection until we have the gallbladder suspended from its infundibulum, or at least what it felt to be as the infundibulum. The deep tissue, that is the shon hepatis was quite thickened and we stayed clear if this level of depth of dissection. I amputated the gallbladder approximately two th[address] the way down towards its neck. This portion was passed off to pathology. The contents of the gallbladder included pus and feculent material. This was all irrigated out and we continue to amputate the remaining third of the gallbladder using Siu scissors. The cystic artery was in its usual location and was managed by oversewn with 3-0 Vicryl suture. At this point we had transected the infundibulum and the back of the gallbladder as it tapered into the cystic duct. The cystic duct was approximately 1 m in diameter. Eventually some bile came out of the cystic duct. There were no other structures transected in this vicinity therefore I felt by exclusion that we in fact were looking at the opening of the cystic duct. The deepest portion of the infundibulum of the gallbladder was left in situ because its exterior surface was plastered to the shon hepatus. At this point we consider doing an intraoperative cholangiogram to confirm the anatomy as described above; however the patient had allergies both IV and oral contrast; the circulating nurse spoke to the patient's father who is a critical care and postop recovery room nurse, and confirmed that the patient has had multiple allergic reactions to IV contrast. Given the fact that patient remained in septic shock as well as an element of hemorrhagic shock due to the approximately 600 cc of blood loss during this dissection, we did not feel it was appropriate to subject this patient to a contrast cholangiograms of the procedure was not performed. I oversew the cystic duct stump with a 3-0 PDS suture. No further bile draining from the cystic duct stump. Bleeding was controlled from the exposed liver surface with a combination of FloSeal, and several pieces of Gelfoam. A large Darrin drain was placed to the right upper quadrant abdominal wall secured to skin with 2-0 Prolene suture and placed over the cystic duct stump. Fortunately the bleeding had abated with our hemostatic agents for which we were most appreciative. Sponge and needle counts are correct. The operation was complete. I reexamined the portion of the transverse colon previously stuck to the undersurface of the gallbladder and liver and there appeared to be no evidence of colon injury. There was no evidence of bile leaking, or any succus entericus , so we felt that we accomplish the task at hand without any injury to associated viscera. The subcostal incision was closed with 2 double-stranded #1 PDS sutures. The wound was approximated hardy and small portions of gauze in between the hardy. 20 cc of Exparel was deployed at the subcutaneous tissue, and abdominal binder applied. We asked anesthesia to place an nasogastric tube. The patient did tolerate the procedure well. Urine output was diminished, however picked up towards the end of the case. Estimated blood loss was between 6 and 700 cc. The patient received approximately 3 and half liters of crystalloid and intermittent boluses of phenylephrine. He was taken to the intensive care unit intubated. Reason for the extremely difficult modifier was the patient's history of previous biloma, previous drain placement, acute cholecystitis fibrosis necrotic gallbladder with feculent intraluminal material, the need to convert to an open procedure, and control of hemorrhage from the inferior surface of the liver.
[2017-11-08] MEDS ORDERED: MIDAZOLAM HCL 50 MG/100 ML RTUINJ IV PRN (18:15)
--- NOTE | 2017-11-08 18:31 | RADIOLOGY REPORT (SQ) ---
EXAM DESCRIPTION: CHEST SINGLE VIEW COMPLETED DATE/TIME: 11/08/2017 6:12 pm REASON FOR STUDY: ET TUBE PLACEMENT COMPARISON: 11/08/2017 0953 hours EXAM PARAMETERS: NUMBER OF VIEWS: One view TECHNIQUE: Single frontal radiograph of the chest. RADIATION DOSE: N/A LIMITATIONS: None. FINDINGS: TEMPORARY SUPPORT DEVICES:ETT in expected location. NG tube courses below the renee-diaphr agm in to the stomach. Central venous access catheter tip is in expected location. LUNGS AND PLEURA: No opacities. No masses. No effusions. No pneumothorax. MEDIASTINUM AND HILAR STRUCTURES: No masses. Contour normal. HEART AND VASCULAR STRUCTURES: Heart size normal. Normal vascularity. Aorta normal for age BONES: No acute findings. OTHER: No other significant finding. IMPRESSION: NO ACUTE RADIOGRAPHIC FINDING IN THE CHEST. SUPPORT DEVICE(S) IN EXPECTED LOCATIONS. TECHNICAL DOCUMENTATION: JOB ID: [id number] [employer]- All Rights Reserved Reading location - IP/workstation name: [email or web address]
[2017-11-08] MEDS: PROPOFOL 1,000 MG/100 ML INFUS..BTL IV PRN ×2 (18:38→21:10)
[2017-11-08] MEDS ORDERED: POTASSIUM CHLORIDE 20 MEQ/50 ML RTU IV ONE (18:45)
[2017-11-08] MEDS ORDERED: METOPROLOL TARTRATE PF/INJ 5 MG/5 ML SDV IV ONE (18:47)
[2017-11-08] MEDS: BENZTROPINE MESYLATE 1 MG TABLET PO SCH (18:47)
[2017-11-08 19:47] LABS: ARTERIAL BLOOD BASE EXCESS -5.3 mmol/L; ARTERIAL BLOOD FIO2 40%; ARTERIAL BLOOD HCO3 19.3 mmol/L (20-26); ARTERIAL BLOOD O2 SATURATION 96.8 % (94-98); ARTERIAL BLOOD PCO2 33.3 mmHg (35-45); ARTERIAL BLOOD PH 7.38 (7.35-7.45); ARTERIAL BLOOD PO2 89.4 mmHg (80-100); ARTERIAL BLOOD TOTAL CO2 20.3 mmol/L (23-27)
[2017-11-08] MEDS ORDERED: PHENYLEPHRINE HCL INJ/PF 10 MG/1 ML SDV ONE (19:49)
[2017-11-08] MEDS ORDERED: METOCLOPRAMIDE HCL INJ/PF 10 MG/2 ML SDV ONE (19:49)
[2017-11-08] MEDS ORDERED: ROCURONIUM BROMIDE INJ 50 MG/5 ML VIAL IV ONE (19:49)
[2017-11-08] MEDS ORDERED: DEXAMETHASONE SOD PHOSPHATE INJ 4 MG/1 ML VIAL ONE (19:49)
[2017-11-08] MEDS ORDERED: SUCCINYLCHOLINE CHLORIDE INJ 200 MG/10 ML VIAL ONE (19:49)
[2017-11-08] MEDS: DULOXETINE HCL 30 MG CAPSULE.DR PO SCH (21:07)
[2017-11-08] MEDS: TOPIRAMATE 100 MG TABLET PO SCH (21:11)
[2017-11-08] MEDS: RISPERIDONE 1 MG TABLET PO SCH (21:11)
[2017-11-08] MEDS ORDERED: RISPERIDONE 6 MG PO SCH (22:00)
[2017-11-08] MEDS ORDERED: (PENDING PHARMACY ID) (Topiramate [Topamax] 200 MG) PO SCH (22:00)
[2017-11-09 00:04] LABS: ANION GAP 8 (5-19); BLOOD UREA NITROGEN 12 mg/dL (7-20); CALCIUM 7.2 mg/dL (8.4-10.2); CARBON DIOXIDE 23 mmol/L (22-30); CHLORIDE 111 mmol/L (98-107); GLUCOSE 140 mg/dL (75-110); POTASSIUM 3.3 mmol/L (3.6-5.0)
[2017-11-09] MEDS: PROPOFOL 1,000 MG/100 ML INFUS..BTL IV PRN ×2 (01:36→05:52)
[2017-11-09 04:41] LABS: ABSOLUTE BASOPHILS # (AUTO) 0.1 10^3/uL (0.0-0.2); ABSOLUTE LYMPHOCYTES (AUTO) 0.6 10^3/uL (0.5-4.7); ABSOLUTE MONOCYTES (AUTO) 0.5 10^3/uL (0.1-1.4); ABSOLUTE NEUT (AUTO) 10.1 10^3/uL (1.7-8.2); BASOPHILS % (AUTO) 0.6 % (0-2); HEMATOCRIT 22.9 % (37.9-51.0); LYMPHOCYTES % (AUTO) 4.9 % (13-45); MEAN CORPUSCULAR HEMOGLOBIN 28.1 pg (27.0-33.4); MEAN CORPUSCULAR HGB CONC 33.6 g/dL (32.0-36.0); MEAN CORPUSCULAR VOLUME 84 fl (80-97); MONOCYTES % (AUTO) 4.8 % (3-13); PLATELET COUNT 118 10^3/uL (150-450); RED BLOOD COUNT 2.74 10^6/uL (4.35-5.55); RED CELL DISTRIBUTION WIDTH 13.9 % (11.5-14.0); SEGMENTED NEUTROPHILS % (AUTO) 89.7 % (42-78); TOTAL CELLS COUNTED % (AUTO) 100 %; WHITE BLOOD COUNT 11.3 10^3/uL (4.0-10.5)
[2017-11-09 04:47] LABS: ARTERIAL BLOOD BASE EXCESS -1.1 mmol/L; ARTERIAL BLOOD H2CO3 1.08 mmol/L (1.05-1.35); ARTERIAL BLOOD O2 SATURATION 99.1 % (94-98); ARTERIAL BLOOD PCO2 35.8 mmHg (35-45); ARTERIAL BLOOD PH 7.43 (7.35-7.45); ARTERIAL BLOOD PO2 156.8 mmHg (80-100); ARTERIAL BLOOD TOTAL CO2 24.1 mmol/L (23-27)
[2017-11-09 04:48] LABS: ARTERIAL BLOOD FIO2 40%
[2017-11-09 04:50] LABS: HEMOGLOBIN 7.7 g/dL (13.5-17.0)
[2017-11-09] MEDS: LANSOPRAZOLE 15 MG TAB.RAP.DR PO SCH (05:18)
[2017-11-09] MEDS: PIPERACILLIN SODIUM/TAZOBACTAM 3.375 GM in NORMAL SALINE 100 ML IV SCH ×3 (05:18→21:27)
[2017-11-09 05:29] LABS: BLOOD UREA NITROGEN 12 mg/dL (7-20); CALCIUM 7.2 mg/dL (8.4-10.2); GLUCOSE 142 mg/dL (75-110)
[2017-11-09 05:30] LABS: ALANINE AMINOTRANSFERASE 104 U/L (21-72); ALKALINE PHOSPHATASE 67 U/L (38-126); ANION GAP 11 (5-19); ASPARTATE AMINO TRANSFERASE 202 U/L (17-59); BILIRUBIN,DIRECT 1.5 mg/dL (0.0-0.4); BILIRUBIN,TOTAL 1.5 mg/dL (0.2-1.3); CARBON DIOXIDE 22 mmol/L (22-30); CHLORIDE 111 mmol/L (98-107); POTASSIUM 3.2 mmol/L (3.6-5.0); SODIUM 144.4 mmol/L (137-145); TOTAL PROTEIN 4.4 g/dL (6.3-8.2)
[2017-11-09] MEDS ORDERED: RINGERS SOLUTION,LACTATED 1,000 ML IV PRN ×2 (05:44→23:00)
[2017-11-09] MEDS ORDERED: POTASSI CL 20 MEQ/50 ML RIDER 20 MEQ/50 ML RTUPB IV ONE (05:49)
[2017-11-09] MEDS ORDERED: POTASSIUM CHLORIDE 20 MEQ/50 ML RTU IV SCH (06:00)
--- NOTE | 2017-11-09 07:33 | RADIOLOGY REPORT (SQ) ---
EXAM DESCRIPTION: CHEST SINGLE VIEW COMPLETED DATE/TIME: 11/09/2017 6:00 am REASON FOR STUDY: resp failure COMPARISON: 11/08/2017 EXAM PARAMETERS: NUMBER OF VIEWS: One view TECHNIQUE: Single frontal radiograph of the chest. RADIATION DOSE: N/A LIMITATIONS: None. FINDINGS: TEMPORARY SUPPORT DEVICES:ETT in expected location. NG tube courses below the renee-diaphr agm in to the stomach. Central venous access catheter tip is in expected location. LUNGS AND PLEURA: No opacities. No masses. No effusions. No pneumothorax. MEDIASTINUM AND HILAR STRUCTURES: No masses. Contour normal. HEART AND VASCULAR STRUCTURES: Heart size normal. Normal vascularity. Aorta normal for age BONES: No acute findings. OTHER: No other significant finding. IMPRESSION: NO ACUTE RADIOGRAPHIC FINDING IN THE CHEST. SUPPORT DEVICE(S) IN EXPECTED LOCATIONS. TECHNICAL DOCUMENTATION: JOB ID: [id number] [employer]- All Rights Reserved Reading location - IP/workstation name: [email or web address]
[2017-11-09] MEDS: POTASSIUM CHLORIDE 20 MEQ/50 ML RTU IV SCH ×3 (07:35→11:45)
[2017-11-09] MEDS ORDERED: HALOPERIDOL LACTATE INJ 5 MG/1 ML VIAL IM PRN (09:28)
[2017-11-09] MEDS: DULOXETINE HCL 30 MG CAPSULE.DR PO SCH ×2 (09:28→21:24)
[2017-11-09] MEDS ORDERED: LORAZEPAM INJ 2 MG/1 ML VIAL IV PRN (09:30)
[2017-11-09] MEDS: BENZTROPINE MESYLATE 1 MG TABLET PO SCH ×2 (09:32→18:29)
[2017-11-09] MEDS: FAMOTIDINE INJ/PF 20 MG/2 ML SDV IV SCH ×2 (09:32→21:27)
[2017-11-09] MEDS: TOPIRAMATE 100 MG TABLET PO SCH ×2 (09:32→21:25)
[2017-11-09] MEDS: RISPERIDONE 1 MG TABLET PO SCH ×2 (09:34→21:24)
[2017-11-09 09:49] LABS: ALBUMIN 2.1 g/dL (3.5-5.0)
[2017-11-09 10:26] LABS: ALANINE AMINOTRANSFERASE 108 U/L (21-72); ALBUMIN 2.2 g/dL (3.5-5.0); ALKALINE PHOSPHATASE 74 U/L (38-126); ANION GAP 8 (5-19); ASPARTATE AMINO TRANSFERASE 211 U/L (17-59); BILIRUBIN,DIRECT 1.2 mg/dL (0.0-0.4); BILIRUBIN,TOTAL 1.4 mg/dL (0.2-1.3); BLOOD UREA NITROGEN 10 mg/dL (7-20); CALCIUM 7.3 mg/dL (8.4-10.2); CARBON DIOXIDE 23 mmol/L (22-30); CHLORIDE 112 mmol/L (98-107); GLUCOSE 149 mg/dL (75-110); POTASSIUM 3.8 mmol/L (3.6-5.0); TOTAL PROTEIN 4.6 g/dL (6.3-8.2)
--- NOTE | 2017-11-09 11:23 | PDOC CONSULTATION ---
Consultation Consult Date: 11/08/17 Attending physician:: LES ARNOLD Consult reason:: respiratory failure History of Present Illness Admission Date/PCP: 11/08/17 08:08 STEF LYNN MD History of Present Illness: BILL BACON is a 27 year old male,presented to the emergency room with abdominal Singh pain and increased temperature of the gland was admitted to the ICU for shock and later taken to the OR for an open cholecystectomy currently in the ICU intubated and sedated. Per notes apparently he had a ERCP approximately a year ago was not followed up with a cholecystectomy at that time. Past Medical History Cardiac Medical History: Denies: Coronary Artery Disease, Myocardial Infarction, Hypertension Pulmonary Medical History: Denies: Asthma, Bronchitis, Chronic Obstructive Pulmonary Disease (COPD), Pneumonia Neurological Medical History: Denies: Seizures Musculoskeltal Medical History: Denies: Arthritis Psychiatric Medical History: Reports: Depression Hematology: Denies: Anemia Past Surgical History Past Surgical History: Denies: Pacemaker Social History Information Source: [facility] Records Lives with: Family Smoking Status: Never Smoker Frequency of Alcohol Use: None Hx Recreational Drug Use: No Drugs: None Hx Prescription Drug Abuse: No - Advance Directive Resuscitation Status: Full Code Family History Family History: Other - Significant for biliary tract disease with gallbladder removed patient's mother Parental Family History Reviewed: No Children Family History Reviewed: No Sibling(s) Family History Reviewed.: No Medication/Allergy Home Medications: Benztropine Mesylate [Cogentin 1 mg Tablet] 1 mg PO BID 11/08/17 Clonazepam [Klonopin 2 mg Tablet] 2 mg PO TIDP PRN 11/08/17 Duloxetine HCl [Cymbalta] 60 mg PO Q12 11/08/17 Metformin HCl [Glucophage] 1,000 mg PO BID 11/08/17 Omeprazole 20 mg PO DAILY 11/08/17 Risperidone [Risperdal] 6 mg PO Q12 11/08/17 Topiramate [Topamax] 200 mg PO Q12 11/08/17 Allergies/Adverse Reactions: Iodinated Contrast- Oral and IV Dye Allergy (Verified 11/08/17 08:46) Review of Systems ROS unobtainable: Due to endotracheal tube, Due to mental status Physical Exam Vital Signs: Temp Pulse Resp BP Pulse Ox 99.7 F 115 H 18 107/68 100 11/08/17 19:43 11/08/17 20:36 11/08/17 18:04 11/08/17 18:04 11/08/17 20:00 Intake & Output 11/07/17 11/08/17 11/09/17 06:59 06:59 06:59 Intake Total 9905 Output Total 30931 Balance -690 General appearance: PRESENT: no acute distress, disheveled, morbidly obese. ABSENT: cooperative Head exam: PRESENT: atraumatic, normocephalic Eye exam: PRESENT: conjunctiva pale. ABSENT: EOMI, nystagmus, periorbital swelling Mouth exam: PRESENT: dry mucosa, neck supple, tongue midline, other - ET tube in place Neck exam: ABSENT: carotid bruit, JVD, lymphadenopathy, thyromegaly, tracheal deviation, tracheostomy Respiratory exam: PRESENT: rhonchi, symmetrical, unlabored. ABSENT: rales, retraction, stridor, wheezes Cardiovascular exam: PRESENT: RRR, +S1, +S2 Pulses: PRESENT: normal radial pulses GI/Abdominal exam: PRESENT: other - Status post surgery:Wearing a binder Extremities exam: ABSENT: calf tenderness, clubbing, joint swelling, pedal edema Musculoskeletal exam: ABSENT: deformity, dislocation Neurological exam: PRESENT: awake. ABSENT: oriented to person, oriented to place, oriented to time, oriented to situation Skin exam: PRESENT: dry, warm Results Laboratory Results: 11/08/17 11/08/17 11/08/17 08:30 09:25 19:32 Carbonic Acid 1.00 L HCO3/H2CO3 Ratio 19:1 ABG pH 7.38 ABG pCO2 33.3 L ABG pO2 89.4 ABG HCO3 19.3 L ABG O2 Saturation 96.8 ABG Base Excess -5.3 FiO2 40% Lactic Acid 1.3 Urine Color YELLOW Urine Appearance CLEAR Urine pH 6.0 Ur Specific [place] 1.003 Urine Protein NEGATIVE Urine Glucose (UA) NEGATIVE Urine Ketones NEGATIVE Urine Blood SMALL H Urine Nitrite NEGATIVE Ur Leukocyte Esterase NEGATIVE Urine WBC (Auto) 4 Urine RBC (Auto) 0 Impressions: Chest X-Ray 11/08/17 00:00 IMPRESSION: NO ACUTE RADIOGRAPHIC FINDING IN THE CHEST. SUPPORT DEVICE(S) IN EXPECTED LOCATIONS. Abdomen Ultrasound 11/08/17 05:00 IMPRESSION: Cholelithiasis with borderline gallbladder wall thickening and positive ultrasonographic Dennis's sign. Further evaluation with HIDA scan may be beneficial. Abdomen/Pelvis CT 11/08/17 08:13 IMPRESSION: Stones in the gallbladder with pericholecystic inflammatory change worrisome for acute cholecystitis. Findings discussed with patient's attending surgeon Assessment & Plan - Diagnosis (1) Abdominal pain Qualifiers: Abdominal location: right upper quadrant Qualified Code(s): R10.11 - Right upper quadrant pain Is this a current diagnosis for this admission?: Yes Plan: Status post open cholecystectomy follow-up as per surgery (2) Autism Is this a current diagnosis for this admission?: Yes (3) Obesity Qualifiers: Obesity type: due to excess calories Body mass index: BMI 38.0-38.9 Is this a current diagnosis for this admission?: Yes (4) Respiratory failure Is this a current diagnosis for this admission?: Yes Plan: FiO2, respiratory rate, minute ventilation, airway pressures, all suggest successful extubation while I am somewhat concerned about his abdominal pain and the fact that he wears a binder ,when he is able to follow commands;we will proceed with extubation at this time hopefully if there is any problems he will be well covered with BiPAP - Time Total Critical Time (Minutes): 60
[2017-11-09] MEDS: MORPHINE SULFATE 10 MG/ML INJ IV PRN (12:57)
[2017-11-09] MEDS: KETOROLAC TROMETHAMINE INJ/PF 30 MG/1 ML SDV IV SCH ×2 (15:42→21:28)
[2017-11-09 16:08] LABS: ARTERIAL BLOOD BASE EXCESS 0.6 mmol/L; ARTERIAL BLOOD H2CO3 1.04 mmol/L (1.05-1.35); ARTERIAL BLOOD HCO3 24.1 mmol/L (20-26); ARTERIAL BLOOD O2 SATURATION 96.9 % (94-98); ARTERIAL BLOOD PCO2 34.7 mmHg (35-45); ARTERIAL BLOOD PH 7.46 (7.35-7.45); ARTERIAL BLOOD PO2 84.1 mmHg (80-100); ARTERIAL BLOOD TOTAL CO2 25.2 mmol/L (23-27)
[2017-11-09 16:09] LABS: ARTERIAL BLOOD FIO2 21%
--- NOTE | 2017-11-09 19:09 | PDOC PROGRESS REPORT ---
Subjective Progress Note for:: 11/09/17 Subjective:: The patient is seen in the ICU. The patient is currently intubated and sedated. He is resting comfortably. Reason For Visit: SEPTIC SHOCK Physical Exam Vital Signs: Temp Pulse Resp BP Pulse Ox 99.1 F 140 H 19 110/67 98 11/09/17 18:00 11/09/17 12:45 11/09/17 14:19 11/09/17 14:19 11/09/17 14:19 Intake & Output 11/08/17 11/09/17 11/10/17 06:59 06:59 06:59 Intake Total 24936 Output Total 87356 1540 Balance 493 -1540 Weight 130 kg 130 kg General appearance: PRESENT: morbidly obese, other - The patient is sedated and intubated. Head exam: PRESENT: atraumatic, normocephalic Eye exam: PRESENT: conjunctiva pink, PERRLA. ABSENT: scleral icterus Mouth exam: PRESENT: other - ETT in place. Neck exam: ABSENT: carotid bruit, JVD, lymphadenopathy, thyromegaly Respiratory exam: PRESENT: other - No increased work of breathing. No wheezes, rales, or rhonchi. No tactile fremitus.. ABSENT: rales, rhonchi, wheezes Cardiovascular exam: PRESENT: RRR, other - No lateral PMI. No thrills.. ABSENT : diastolic murmur, rubs, systolic murmur Pulses: PRESENT: normal dorsalis pedis pul Vascular exam: PRESENT: normal capillary refill GI/Abdominal exam: PRESENT: diminished bowel sounds, soft, other - Surgical sites appear clean and dry.. ABSENT: distended, guarding, mass, organolmegaly, rebound, tenderness Rectal exam: PRESENT: deferred Extremities exam: PRESENT: full ROM. ABSENT: calf tenderness, clubbing, pedal edema Neurological exam: PRESENT: other - The patient is intubated and sedated. Psychiatric exam: PRESENT: other - The patient is intubated and sedated. Skin exam: PRESENT: dry, intact, warm. ABSENT: cyanosis, rash Results Laboratory Results: 11/09/17 04:31 11/09/17 09:45 11/08/17 11/08/17 11/09/17 19:32 23:19 04:31 WBC RBC Hgb Hct MCV MCH MCHC RDW Plt Count Seg Neutrophils % Lymphocytes % Monocytes % Eosinophils % Basophils % Absolute Neutrophils Absolute Lymphocytes Absolute Monocytes Absolute Eosinophils Absolute Basophils Carbonic Acid 1.00 L 1.08 HCO3/H2CO3 Ratio 19:1 21:1 ABG pH 7.38 7.43 ABG pCO2 33.3 L 35.8 ABG pO2 89.4 156.8 H ABG HCO3 19.3 L 23.0 ABG O2 Saturation 96.8 99.1 H ABG Base Excess -5.3 -1.1 FiO2 40% 40% Sodium 142.0 Potassium 3.3 L Chloride 111 H Carbon Dioxide 23 Anion Gap 8 BUN 12 Creatinine 0.84 Est GFR ( Amer) > 60 Est GFR (Non-Af Amer) > 60 Glucose 140 H Calcium 7.2 L Total Bilirubin AST ALT Alkaline Phosphatase Total Protein Albumin 11/09/17 11/09/17 11/09/17 04:31 04:31 09:45 WBC 11.3 H RBC 2.74 L Hgb 7.7 L D Hct 22.9 L MCV 84 MCH 28.1 MCHC 33.6 RDW 13.9 Plt Count 118 L Seg Neutrophils % 89.7 H Lymphocytes % 4.9 L Monocytes % 4.8 Eosinophils % 0.0 Basophils % 0.6 Absolute Neutrophils 10.1 H Absolute Lymphocytes 0.6 Absolute Monocytes 0.5 Absolute Eosinophils 0.0 Absolute Basophils 0.1 Carbonic Acid HCO3/H2CO3 Ratio ABG pH ABG pCO2 ABG pO2 ABG HCO3 ABG O2 Saturation ABG Base Excess FiO2 Sodium 144.4 143.0 Potassium 3.2 L 3.8 Chloride 111 H 112 H Carbon Dioxide 22 23 Anion Gap 11 8 BUN 12 10 Creatinine 0.73 0.68 Est GFR ( Amer) > 60 > 60 Est GFR (Non-Af Amer) > 60 > 60 Glucose 142 H 149 H Calcium 7.2 L 7.3 L Total Bilirubin 1.5 H 1.4 H AST 202 H 211 H ALT 104 H 108 H Alkaline Phosphatase 67 74 Total Protein 4.4 L 4.6 L Albumin 2.1 L 2.2 L 11/09/17 11/09/17 15:26 15:55 WBC RBC Hgb Hct MCV MCH MCHC RDW Plt Count Seg Neutrophils % Lymphocytes % Monocytes % Eosinophils % Basophils % Absolute Neutrophils Absolute Lymphocytes Absolute Monocytes Absolute Eosinophils Absolute Basophils Carbonic Acid Cancelled 1.04 L HCO3/H2CO3 Ratio Cancelled 23:1 ABG pH Cancelled 7.46 H ABG pCO2 Cancelled 34.7 L ABG pO2 Cancelled 84.1 ABG HCO3 Cancelled 24.1 ABG O2 Saturation Cancelled 96.9 ABG Base Excess Cancelled 0.6 FiO2 Cancelled 21% Sodium Potassium Chloride Carbon Dioxide Anion Gap BUN Creatinine Est GFR ( Amer) Est GFR (Non-Af Amer) Glucose Calcium Total Bilirubin AST ALT Alkaline Phosphatase Total Protein Albumin Impressions: Abdomen Ultrasound 11/08/17 05:00 IMPRESSION: Cholelithiasis with borderline gallbladder wall thickening and positive ultrasonographic Dennis's sign. Further evaluation with HIDA scan may be beneficial. Abdomen/Pelvis CT 11/08/17 08:13 IMPRESSION: Stones in the gallbladder with pericholecystic inflammatory change worrisome for acute cholecystitis. Findings discussed with patient's attending surgeon Chest X-Ray 11/09/17 06:00 IMPRESSION: NO ACUTE RADIOGRAPHIC FINDING IN THE CHEST. SUPPORT DEVICE(S) IN EXPECTED LOCATIONS. Assessment & Plan - Diagnosis (1) Acute kidney injury Is this a current diagnosis for this admission?: Yes Plan: IV fluids, avoid nephrotoxic substances, and monitor electrolytes. (2) Autism Is this a current diagnosis for this admission?: Yes Plan: Continue home medications. As needed doses of ativan and haldol will be available should the patient need them once he is extubated. (3) Cholelithiasis Qualifiers: Cholelithiasis location: gallbladder Cholecystitis presence: with cholecystitis Cholecystitis acuity: acute Biliary obstruction: with biliary obstruction Qualified Code(s): K80.01 - Calculus of gallbladder with acute cholecystitis with obstruction Is this a current diagnosis for this admission?: Yes Plan: Status post laparoscopic cholecystectomy. The patient tolerated the procedure well. It is anticipated that he will be extubated later today. (4) Elevated LFTs Is this a current diagnosis for this admission?: Yes Plan: Resolving. (5) History of endoscopic retrograde cholangiopancreatography Is this a current diagnosis for this admission?: Yes Plan: Elevation of LFT's resolving. (6) Obesity Qualifiers: Obesity type: due to excess calories Body mass index: BMI 38.0-38.9 Is this a current diagnosis for this admission?: Yes Plan: Weight loss conselling should be performed prior to discharge. (7) Respiratory failure Qualifiers: Chronicity: acute Is this a current diagnosis for this admission?: Yes Plan: Resolving. Extubation is anticipated before the end of the day. (8) Schizophrenia Is this a current diagnosis for this admission?: Yes Plan: Continue home medications. (9) Severe sepsis Is this a current diagnosis for this admission?: Yes Plan: Resolving following laparoscopic cholecystectomy. - Time Time Spent with patient: 25-34 minutes Medications reviewed and adjusted accordingly: Yes
--- NOTE | 2017-11-09 20:54 | PDOC PROGRESS REPORT ---
Subjective Reason For Visit: SEPTIC SHOCK Physical Exam Vital Signs: Temp Pulse Resp BP Pulse Ox 99.0 F 109 H 24 H 91/78 L 100 11/09/17 19:26 11/09/17 19:57 11/09/17 18:20 11/09/17 18:20 11/09/17 18:20 Intake & Output 11/08/17 11/09/17 11/10/17 06:59 06:59 06:59 Intake Total 43313 1761 Output Total 24118 1565 Balance 493 196 Weight 130 kg 130 kg Results Laboratory Results: 11/09/17 04:31 11/09/17 09:45 11/08/17 11/09/17 11/09/17 23:19 04:31 04:31 WBC 11.3 H RBC 2.74 L Hgb 7.7 L D Hct 22.9 L MCV 84 MCH 28.1 MCHC 33.6 RDW 13.9 Plt Count 118 L Seg Neutrophils % 89.7 H Lymphocytes % 4.9 L Monocytes % 4.8 Eosinophils % 0.0 Basophils % 0.6 Absolute Neutrophils 10.1 H Absolute Lymphocytes 0.6 Absolute Monocytes 0.5 Absolute Eosinophils 0.0 Absolute Basophils 0.1 Carbonic Acid 1.08 HCO3/H2CO3 Ratio 21:1 ABG pH 7.43 ABG pCO2 35.8 ABG pO2 156.8 H ABG HCO3 23.0 ABG O2 Saturation 99.1 H ABG Base Excess -1.1 FiO2 40% Sodium 142.0 Potassium 3.3 L Chloride 111 H Carbon Dioxide 23 Anion Gap 8 BUN 12 Creatinine 0.84 Est GFR ( Amer) > 60 Est GFR (Non-Af Amer) > 60 Glucose 140 H Calcium 7.2 L Total Bilirubin AST ALT Alkaline Phosphatase Total Protein Albumin 11/09/17 11/09/17 11/09/17 04:31 09:45 15:26 WBC RBC Hgb Hct MCV MCH MCHC RDW Plt Count Seg Neutrophils % Lymphocytes % Monocytes % Eosinophils % Basophils % Absolute Neutrophils Absolute Lymphocytes Absolute Monocytes Absolute Eosinophils Absolute Basophils Carbonic Acid Cancelled HCO3/H2CO3 Ratio Cancelled ABG pH Cancelled ABG pCO2 Cancelled ABG pO2 Cancelled ABG HCO3 Cancelled ABG O2 Saturation Cancelled ABG Base Excess Cancelled FiO2 Cancelled Sodium 144.4 143.0 Potassium 3.2 L 3.8 Chloride 111 H 112 H Carbon Dioxide 22 23 Anion Gap 11 8 BUN 12 10 Creatinine 0.73 0.68 Est GFR ( Amer) > 60 > 60 Est GFR (Non-Af Amer) > 60 > 60 Glucose 142 H 149 H Calcium 7.2 L 7.3 L Total Bilirubin 1.5 H 1.4 H AST 202 H 211 H ALT 104 H 108 H Alkaline Phosphatase 67 74 Total Protein 4.4 L 4.6 L Albumin 2.1 L 2.2 L 11/09/17 15:55 WBC RBC Hgb Hct MCV MCH MCHC RDW Plt Count Seg Neutrophils % Lymphocytes % Monocytes % Eosinophils % Basophils % Absolute Neutrophils Absolute Lymphocytes Absolute Monocytes Absolute Eosinophils Absolute Basophils Carbonic Acid 1.04 L HCO3/H2CO3 Ratio 23:1 ABG pH 7.46 H ABG pCO2 34.7 L ABG pO2 84.1 ABG HCO3 24.1 ABG O2 Saturation 96.9 ABG Base Excess 0.6 FiO2 21% Sodium Potassium Chloride Carbon Dioxide Anion Gap BUN Creatinine Est GFR ( Amer) Est GFR (Non-Af Amer) Glucose Calcium Total Bilirubin AST ALT Alkaline Phosphatase Total Protein Albumin Impressions: Abdomen Ultrasound 11/08/17 05:00 IMPRESSION: Cholelithiasis with borderline gallbladder wall thickening and positive ultrasonographic Dennis's sign. Further evaluation with HIDA scan may be beneficial. Abdomen/Pelvis CT 11/08/17 08:13 IMPRESSION: Stones in the gallbladder with pericholecystic inflammatory change worrisome for acute cholecystitis. Findings discussed with patient's attending surgeon Chest X-Ray 11/09/17 06:00 IMPRESSION: NO ACUTE RADIOGRAPHIC FINDING IN THE CHEST. SUPPORT DEVICE(S) IN EXPECTED LOCATIONS. Assessment & Plan - Diagnosis (1) Acute gangrenous cholecystitis Is this a current diagnosis for this admission?: Yes (2) Severe sepsis Is this a current diagnosis for this admission?: Yes - Plan Summary Plan Summary: This is a 27-year-old male status post laparoscopic converted to open cholecystectomy for acute gangrenous cholecystitis. The patient is doing well. He was extubated today by Dr. Hudson. The patient is talking and asking for liquids. I will advance the patient to clear liquids this evening. There is serosanguineous output from his drain. Continue to monitor vitals closely. Hemoglobin 7.7 today. The patient's heart rate is normal and his blood pressure is stable. Hold off on transfusion for now. Will follow closely.
[2017-11-09] MEDS ORDERED: RINGERS SOLUTION,LACTATED 1,000 ML IV SCH (22:30)
[2017-11-10] MEDS: PIPERACILLIN SODIUM/TAZOBACTAM 3.375 GM in NORMAL SALINE 100 ML IV SCH ×3 (05:06→21:40)
[2017-11-10] MEDS: LANSOPRAZOLE 15 MG TAB.RAP.DR PO SCH (05:06)
[2017-11-10] MEDS: KETOROLAC TROMETHAMINE INJ/PF 30 MG/1 ML SDV IV SCH ×3 (05:06→21:32)
[2017-11-10 05:31] LABS: ABSOLUTE BASOPHILS # (AUTO) 0.1 10^3/uL (0.0-0.2); ABSOLUTE LYMPHOCYTES (AUTO) 1.3 10^3/uL (0.5-4.7); ABSOLUTE MONOCYTES (AUTO) 0.8 10^3/uL (0.1-1.4); ABSOLUTE NEUT (AUTO) 9.1 10^3/uL (1.7-8.2); BASOPHILS % (AUTO) 0.6 % (0-2); EOSINOPHILS % (AUTO) 0.1 % (0-6); HEMATOCRIT 18.9 % (37.9-51.0); LYMPHOCYTES % (AUTO) 11.6 % (13-45); MEAN CORPUSCULAR HEMOGLOBIN 28.6 pg (27.0-33.4); MEAN CORPUSCULAR HGB CONC 34.5 g/dL (32.0-36.0); MEAN CORPUSCULAR VOLUME 83 fl (80-97); MONOCYTES % (AUTO) 6.8 % (3-13); PLATELET COUNT 140 10^3/uL (150-450); RED BLOOD COUNT 2.27 10^6/uL (4.35-5.55); RED CELL DISTRIBUTION WIDTH 14.3 % (11.5-14.0); SEGMENTED NEUTROPHILS % (AUTO) 80.9 % (42-78); TOTAL CELLS COUNTED % (AUTO) 100 %; WHITE BLOOD COUNT 11.3 10^3/uL (4.0-10.5)
[2017-11-10 05:33] LABS: HEMOGLOBIN 6.5 g/dL (13.5-17.0)
[2017-11-10 05:44] LABS: ALANINE AMINOTRANSFERASE 90 U/L (21-72); ALBUMIN 2.2 g/dL (3.5-5.0); ALKALINE PHOSPHATASE 66 U/L (38-126); ANION GAP 8 (5-19); ASPARTATE AMINO TRANSFERASE 189 U/L (17-59); BILIRUBIN,DIRECT 0.7 mg/dL (0.0-0.4); BILIRUBIN,TOTAL 0.8 mg/dL (0.2-1.3); BLOOD UREA NITROGEN 16 mg/dL (7-20); CALCIUM 7.1 mg/dL (8.4-10.2); CARBON DIOXIDE 24 mmol/L (22-30); CHLORIDE 109 mmol/L (98-107); GLUCOSE 118 mg/dL (75-110); POTASSIUM 3.7 mmol/L (3.6-5.0); TOTAL PROTEIN 4.5 g/dL (6.3-8.2)
[2017-11-10] MEDS: BENZTROPINE MESYLATE 1 MG TABLET PO SCH ×2 (09:24→17:44)
[2017-11-10] MEDS: TOPIRAMATE 100 MG TABLET PO SCH ×2 (09:24→21:30)
[2017-11-10] MEDS: FAMOTIDINE INJ/PF 20 MG/2 ML SDV IV SCH ×2 (09:25→21:35)
[2017-11-10] MEDS: DULOXETINE HCL 30 MG CAPSULE.DR PO SCH ×2 (09:25→21:31)
[2017-11-10] MEDS: RISPERIDONE 1 MG TABLET PO SCH ×2 (11:31→21:27)
[2017-11-10] MEDS: ACETAMINOPHEN 325 MG TABLET PO PRN (12:52)
[2017-11-10 18:38] LABS: ABSOLUTE LYMPHOCYTES (AUTO) 2.1 10^3/uL (0.5-4.7); ABSOLUTE MONOCYTES (AUTO) 0.6 10^3/uL (0.1-1.4); ABSOLUTE NEUT (AUTO) 8.7 10^3/uL (1.7-8.2); BASOPHILS % (AUTO) 0.3 % (0-2); EOSINOPHILS % (AUTO) 0.2 % (0-6); HEMATOCRIT 23.4 % (37.9-51.0); LYMPHOCYTES % (AUTO) 18.1 % (13-45); MEAN CORPUSCULAR HEMOGLOBIN 27.5 pg (27.0-33.4); MEAN CORPUSCULAR VOLUME 83 fl (80-97); MONOCYTES % (AUTO) 5.3 % (3-13); PLATELET COUNT 181 10^3/uL (150-450); RED BLOOD COUNT 2.82 10^6/uL (4.35-5.55); RED CELL DISTRIBUTION WIDTH 14.5 % (11.5-14.0); SEGMENTED NEUTROPHILS % (AUTO) 76.1 % (42-78); TOTAL CELLS COUNTED % (AUTO) 100 %; WHITE BLOOD COUNT 11.4 10^3/uL (4.0-10.5)
[2017-11-10 18:42] LABS: HEMOGLOBIN 7.7 g/dL (13.5-17.0)
--- NOTE | 2017-11-10 20:12 | PDOC PROGRESS REPORT ---
Subjective Progress Note for:: 11/10/17 Subjective:: The patient is seen in the ICU. The patient has been extubated and is sleeping soundly. Not awakened. Reason For Visit: SEPTIC SHOCK Physical Exam Vital Signs: Temp Pulse Resp BP Pulse Ox 99.3 F 130 H 18 117/64 95 11/10/17 18:10 11/10/17 18:00 11/10/17 18:10 11/10/17 18:10 11/10/17 18:10 Intake & Output 11/09/17 11/10/17 11/11/17 06:59 06:59 06:59 Intake Total 33859 5244 1570 Output Total 02147 2235 1800 Balance 493 3009 -230 Weight 130 kg 128.1 kg General appearance: PRESENT: no acute distress, morbidly obese, other - No new complaints. Head exam: PRESENT: atraumatic, normocephalic Neck exam: ABSENT: JVD, lymphadenopathy, thyromegaly Respiratory exam: PRESENT: other - No increased work of breathing. No wheezes, rales, or rhonchi. No tactile fremitus. Cardiovascular exam: PRESENT: RRR. ABSENT: gallop, rubs, systolic murmur Pulses: PRESENT: normal carotid pulses, normal femoral pulses, normal dorsalis pedis pul Vascular exam: PRESENT: normal capillary refill GI/Abdominal exam: PRESENT: other - Morbidly obese, soft, non-tender. Bowel sounds are distant. Unable to evaluate for organomegaly, masses, or hernias due to patient's body habitus. Extremities exam: ABSENT: calf tenderness, clubbing, pedal edema Neurological exam: PRESENT: other - Pt is unable to cooperate with neurological exam due to somnolence. Psychiatric exam: PRESENT: other - Patient is unable to cooperate with psychiatric evaluation due to his inability to cooperate with exam. Skin exam: PRESENT: dry, intact, warm Results Laboratory Results: 11/10/17 18:15 11/10/17 05:16 11/10/17 11/10/17 11/10/17 05:16 05:16 06:15 WBC 11.3 H RBC 2.27 L Hgb 6.5 L Hct 18.9 L MCV 83 MCH 28.6 MCHC 34.5 RDW 14.3 H Plt Count 140 L Seg Neutrophils % 80.9 H Lymphocytes % 11.6 L Monocytes % 6.8 Eosinophils % 0.1 Basophils % 0.6 Absolute Neutrophils 9.1 H Absolute Lymphocytes 1.3 Absolute Monocytes 0.8 Absolute Eosinophils 0.0 Absolute Basophils 0.1 Sodium 141.0 Potassium 3.7 Chloride 109 H Carbon Dioxide 24 Anion Gap 8 BUN 16 Creatinine 0.73 Est GFR ( Amer) > 60 Est GFR (Non-Af Amer) > 60 Glucose 118 H Calcium 7.1 L Total Bilirubin 0.8 AST 189 H ALT 90 H Alkaline Phosphatase 66 Total Protein 4.5 L Albumin 2.2 L Blood Type O POSITIVE Antibody Screen NEGATIVE 11/10/17 18:15 WBC 11.4 H RBC 2.82 L Hgb 7.7 L Hct 23.4 L MCV 83 MCH 27.5 MCHC 33.0 RDW 14.5 H Plt Count 181 Seg Neutrophils % 76.1 Lymphocytes % 18.1 Monocytes % 5.3 Eosinophils % 0.2 Basophils % 0.3 Absolute Neutrophils 8.7 H Absolute Lymphocytes 2.1 Absolute Monocytes 0.6 Absolute Eosinophils 0.0 Absolute Basophils 0.0 Sodium Potassium Chloride Carbon Dioxide Anion Gap BUN Creatinine Est GFR ( Amer) Est GFR (Non-Af Amer) Glucose Calcium Total Bilirubin AST ALT Alkaline Phosphatase Total Protein Albumin Blood Type Antibody Screen 11/08/17 08:30 Clean Catch Midstream Urine Culture - Final NO GROWTH 2 DAYS Impressions: Abdomen Ultrasound 11/08/17 05:00 IMPRESSION: Cholelithiasis with borderline gallbladder wall thickening and positive ultrasonographic Dennis's sign. Further evaluation with HIDA scan may be beneficial. Abdomen/Pelvis CT 11/08/17 08:13 IMPRESSION: Stones in the gallbladder with pericholecystic inflammatory change worrisome for acute cholecystitis. Findings discussed with patient's attending surgeon Chest X-Ray 11/09/17 06:00 IMPRESSION: NO ACUTE RADIOGRAPHIC FINDING IN THE CHEST. SUPPORT DEVICE(S) IN EXPECTED LOCATIONS. Assessment & Plan - Diagnosis (1) Acute kidney injury Is this a current diagnosis for this admission?: Yes Plan: IV fluids, avoid nephrotoxic substances, and monitor electrolytes. Resolved. (2) Autism Is this a current diagnosis for this admission?: Yes Plan: Continue home medications. As needed doses of ativan and haldol will be available should the patient need them once he is extubated. (3) Cholelithiasis Qualifiers: Cholelithiasis location: gallbladder Cholecystitis presence: with cholecystitis Cholecystitis acuity: acute Biliary obstruction: with biliary obstruction Qualified Code(s): K80.01 - Calculus of gallbladder with acute cholecystitis with obstruction Is this a current diagnosis for this admission?: Yes Plan: Status post laparoscopic cholecystectomy. The patient tolerated the procedure well. (4) Elevated LFTs Is this a current diagnosis for this admission?: Yes Plan: Resolving. (5) History of endoscopic retrograde cholangiopancreatography Is this a current diagnosis for this admission?: Yes (6) Obesity Qualifiers: Obesity type: due to excess calories Body mass index: BMI 38.0-38.9 Is this a current diagnosis for this admission?: Yes (7) Respiratory failure Qualifiers: Chronicity: acute Is this a current diagnosis for this admission?: Yes Plan: Resolved (8) Schizophrenia Is this a current diagnosis for this admission?: Yes (9) Severe sepsis Is this a current diagnosis for this admission?: Yes - Time Time Spent with patient: 35 or more minutes Medications reviewed and adjusted accordingly: Yes Anticipated discharge: Home
--- NOTE | 2017-11-10 21:04 | PDOC PROGRESS REPORT ---
Subjective Progress Note for:: 11/10/17 Subjective:: Feels a lot better post op Reason For Visit: SEPTIC SHOCK Physical Exam Vital Signs: Temp Pulse Resp BP Pulse Ox 99.3 F 111 H 18 117/64 95 11/10/17 18:10 11/10/17 20:43 11/10/17 18:10 11/10/17 18:10 11/10/17 18:10 Intake & Output 11/09/17 11/10/17 11/11/17 06:59 06:59 06:59 Intake Total 81747 5217 1570 Output Total 45969 6482 1999 Balance 493 7109 -408 Weight 130 kg 128.1 kg Exam: Abd is soft. Wound packing removed by nurse. OK to start clears Results Laboratory Results: 11/10/17 18:15 11/10/17 05:16 11/10/17 11/10/17 11/10/17 05:16 05:16 06:15 WBC 11.3 H RBC 2.27 L Hgb 6.5 L Hct 18.9 L MCV 83 MCH 28.6 MCHC 34.5 RDW 14.3 H Plt Count 140 L Seg Neutrophils % 80.9 H Lymphocytes % 11.6 L Monocytes % 6.8 Eosinophils % 0.1 Basophils % 0.6 Absolute Neutrophils 9.1 H Absolute Lymphocytes 1.3 Absolute Monocytes 0.8 Absolute Eosinophils 0.0 Absolute Basophils 0.1 Sodium 141.0 Potassium 3.7 Chloride 109 H Carbon Dioxide 24 Anion Gap 8 BUN 16 Creatinine 0.73 Est GFR ( Amer) > 60 Est GFR (Non-Af Amer) > 60 Glucose 118 H Calcium 7.1 L Total Bilirubin 0.8 AST 189 H ALT 90 H Alkaline Phosphatase 66 Total Protein 4.5 L Albumin 2.2 L Blood Type O POSITIVE Antibody Screen NEGATIVE 11/10/17 18:15 WBC 11.4 H RBC 2.82 L Hgb 7.7 L Hct 23.4 L MCV 83 MCH 27.5 MCHC 33.0 RDW 14.5 H Plt Count 181 Seg Neutrophils % 76.1 Lymphocytes % 18.1 Monocytes % 5.3 Eosinophils % 0.2 Basophils % 0.3 Absolute Neutrophils 8.7 H Absolute Lymphocytes 2.1 Absolute Monocytes 0.6 Absolute Eosinophils 0.0 Absolute Basophils 0.0 Sodium Potassium Chloride Carbon Dioxide Anion Gap BUN Creatinine Est GFR ( Amer) Est GFR (Non-Af Amer) Glucose Calcium Total Bilirubin AST ALT Alkaline Phosphatase Total Protein Albumin Blood Type Antibody Screen 11/08/17 08:30 Clean Catch Midstream Urine Culture - Final NO GROWTH 2 DAYS Impressions: Abdomen Ultrasound 11/08/17 05:00 IMPRESSION: Cholelithiasis with borderline gallbladder wall thickening and positive ultrasonographic Dennis's sign. Further evaluation with HIDA scan may be beneficial. Abdomen/Pelvis CT 11/08/17 08:13 IMPRESSION: Stones in the gallbladder with pericholecystic inflammatory change worrisome for acute cholecystitis. Findings discussed with patient's attending surgeon Chest X-Ray 11/09/17 06:00 IMPRESSION: NO ACUTE RADIOGRAPHIC FINDING IN THE CHEST. SUPPORT DEVICE(S) IN EXPECTED LOCATIONS.
[2017-11-11] MEDS: LANSOPRAZOLE 15 MG TAB.RAP.DR PO SCH (06:24)
[2017-11-11] MEDS: KETOROLAC TROMETHAMINE INJ/PF 30 MG/1 ML SDV IV SCH (06:24)
[2017-11-11] MEDS: PIPERACILLIN SODIUM/TAZOBACTAM 3.375 GM in NORMAL SALINE 100 ML IV SCH (06:25)
[2017-11-11] MEDS: MORPHINE SULFATE 10 MG/ML INJ IV PRN (06:26)
[2017-11-11] MEDS ORDERED: IMIPENEM/CILASTATIN SODIUM 500 MG in NORMAL SALINE 100 ML IV SCH (08:00)
--- NOTE | 2017-11-11 08:05 | PDOC PROGRESS REPORT ---
Subjective Progress Note for:: 11/11/17 Subjective:: unchanged Reason For Visit: SEPTIC SHOCK Physical Exam Vital Signs: Temp Pulse Resp BP Pulse Ox 99.9 F 99 23 H 104/61 97 11/11/17 07:08 11/11/17 07:40 11/11/17 07:08 11/11/17 07:08 11/11/17 07:08 Intake & Output 11/10/17 11/11/17 11/12/17 06:59 06:59 06:59 Intake Total 5244 2410 Output Total 2235 3950 Balance 3009 -1540 Weight 128.1 kg General appearance: PRESENT: no acute distress, disheveled, morbidly obese Head exam: PRESENT: atraumatic, normocephalic Eye exam: PRESENT: conjunctiva pale, EOMI. ABSENT: nystagmus Mouth exam: PRESENT: dry mucosa, neck supple, tongue midline Neck exam: ABSENT: carotid bruit, JVD, lymphadenopathy, thyromegaly, tracheal deviation, tracheostomy Respiratory exam: PRESENT: decreased breath sounds, rales, rhonchi, unlabored. ABSENT: retraction, stridor, tachypnea Cardiovascular exam: PRESENT: RRR, +S1, +S2, systolic murmur Pulses: PRESENT: normal radial pulses GI/Abdominal exam: PRESENT: other - s/p surgery drains are reported active Gentrourinary exam: PRESENT: indwelling catheter Extremities exam: ABSENT: calf tenderness, clubbing, joint swelling Musculoskeletal exam: ABSENT: deformity, dislocation Neurological exam: PRESENT: awake, oriented to person, oriented to place Psychiatric exam: PRESENT: flat affect Skin exam: PRESENT: dry, warm Results Laboratory Results: 11/10/17 18:15 11/10/17 05:16 11/10/17 11/10/17 06:15 18:15 WBC 11.4 H RBC 2.82 L Hgb 7.7 L Hct 23.4 L MCV 83 MCH 27.5 MCHC 33.0 RDW 14.5 H Plt Count 181 Seg Neutrophils % 76.1 Lymphocytes % 18.1 Monocytes % 5.3 Eosinophils % 0.2 Basophils % 0.3 Absolute Neutrophils 8.7 H Absolute Lymphocytes 2.1 Absolute Monocytes 0.6 Absolute Eosinophils 0.0 Absolute Basophils 0.0 Blood Type O POSITIVE Antibody Screen NEGATIVE 11/08/17 08:30 Clean Catch Midstream Urine Culture - Final NO GROWTH 2 DAYS Impressions: Abdomen Ultrasound 11/08/17 05:00 IMPRESSION: Cholelithiasis with borderline gallbladder wall thickening and positive ultrasonographic Dennis's sign. Further evaluation with HIDA scan may be beneficial. Abdomen/Pelvis CT 11/08/17 08:13 IMPRESSION: Stones in the gallbladder with pericholecystic inflammatory change worrisome for acute cholecystitis. Findings discussed with patient's attending surgeon Chest X-Ray 11/09/17 06:00 IMPRESSION: NO ACUTE RADIOGRAPHIC FINDING IN THE CHEST. SUPPORT DEVICE(S) IN EXPECTED LOCATIONS. Assessment & Plan - Diagnosis (1) Abdominal pain Qualifiers: Abdominal location: right upper quadrant Qualified Code(s): R10.11 - Right upper quadrant pain Is this a current diagnosis for this admission?: Yes Plan: Status post open cholecystectomy follow-up as per surgery (2) Autism Is this a current diagnosis for this admission?: Yes (3) Obesity Qualifiers: Obesity type: due to excess calories Body mass index: BMI 38.0-38.9 Is this a current diagnosis for this admission?: Yes (4) Respiratory failure Qualifiers: Chronicity: acute Is this a current diagnosis for this admission?: Yes Plan: s/p extubation x 48 stable on r/a - Time Total Critical Time (Minutes): 40
--- NOTE | 2017-11-11 08:07 | PDOC PROGRESS REPORT ---
Subjective Progress Note for:: 11/10/17 Subjective:: s/p extubation x 24h Reason For Visit: SEPTIC SHOCK Physical Exam Vital Signs: Temp Pulse Resp BP Pulse Ox 98.2 F 109 H 16 88/50 L 96 11/10/17 05:22 11/09/17 19:57 11/10/17 02:00 11/10/17 01:53 11/10/17 02:00 Intake & Output 11/09/17 11/10/17 11/11/17 06:59 06:59 06:59 Intake Total 06540 5244 Output Total 97830 2235 Balance 493 3009 Weight 130 kg 128.1 kg General appearance: PRESENT: cooperative, disheveled, mild distress, morbidly obese Head exam: PRESENT: atraumatic, normocephalic Eye exam: PRESENT: conjunctiva pale, EOMI. ABSENT: nystagmus Mouth exam: PRESENT: dry mucosa, neck supple, tongue midline Neck exam: ABSENT: carotid bruit, JVD, lymphadenopathy, thyromegaly, tracheal deviation, tracheostomy Respiratory exam: PRESENT: decreased breath sounds, prolonged expiratory phas, rhonchi, unlabored. ABSENT: stridor Cardiovascular exam: PRESENT: RRR, +S1, +S2, systolic murmur Pulses: PRESENT: normal radial pulses - [address] GI/Abdominal exam: PRESENT: other - s/p surgery Extremities exam: ABSENT: calf tenderness, clubbing, joint swelling Musculoskeletal exam: ABSENT: deformity, dislocation Neurological exam: PRESENT: awake, oriented to person, oriented to place Psychiatric exam: PRESENT: flat affect Skin exam: PRESENT: dry, warm Results Laboratory Results: 11/10/17 05:16 11/10/17 05:16 11/09/17 11/09/17 11/09/17 04:31 09:45 15:26 WBC RBC Hgb Hct MCV MCH MCHC RDW Plt Count Seg Neutrophils % Lymphocytes % Monocytes % Eosinophils % Basophils % Absolute Neutrophils Absolute Lymphocytes Absolute Monocytes Absolute Eosinophils Absolute Basophils Carbonic Acid Cancelled HCO3/H2CO3 Ratio Cancelled ABG pH Cancelled ABG pCO2 Cancelled ABG pO2 Cancelled ABG HCO3 Cancelled ABG O2 Saturation Cancelled ABG Base Excess Cancelled FiO2 Cancelled Sodium 143.0 Potassium 3.8 Chloride 112 H Carbon Dioxide 23 Anion Gap 8 BUN 10 Creatinine 0.68 Est GFR ( Amer) > 60 Est GFR (Non-Af Amer) > 60 Glucose 149 H Calcium 7.3 L Total Bilirubin 1.4 H AST 211 H ALT 108 H Alkaline Phosphatase 74 Total Protein 4.6 L Albumin 2.1 L 2.2 L Blood Type Antibody Screen 11/09/17 11/10/17 11/10/17 15:55 05:16 05:16 WBC 11.3 H RBC 2.27 L Hgb 6.5 L Hct 18.9 L MCV 83 MCH 28.6 MCHC 34.5 RDW 14.3 H Plt Count 140 L Seg Neutrophils % 80.9 H Lymphocytes % 11.6 L Monocytes % 6.8 Eosinophils % 0.1 Basophils % 0.6 Absolute Neutrophils 9.1 H Absolute Lymphocytes 1.3 Absolute Monocytes 0.8 Absolute Eosinophils 0.0 Absolute Basophils 0.1 Carbonic Acid 1.04 L HCO3/H2CO3 Ratio 23:1 ABG pH 7.46 H ABG pCO2 34.7 L ABG pO2 84.1 ABG HCO3 24.1 ABG O2 Saturation 96.9 ABG Base Excess 0.6 FiO2 21% Sodium 141.0 Potassium 3.7 Chloride 109 H Carbon Dioxide 24 Anion Gap 8 BUN 16 Creatinine 0.73 Est GFR ( Amer) > 60 Est GFR (Non-Af Amer) > 60 Glucose 118 H Calcium 7.1 L Total Bilirubin 0.8 AST 189 H ALT 90 H Alkaline Phosphatase 66 Total Protein 4.5 L Albumin 2.2 L Blood Type Antibody Screen 11/10/17 06:15 WBC RBC Hgb Hct MCV MCH MCHC RDW Plt Count Seg Neutrophils % Lymphocytes % Monocytes % Eosinophils % Basophils % Absolute Neutrophils Absolute Lymphocytes Absolute Monocytes Absolute Eosinophils Absolute Basophils Carbonic Acid HCO3/H2CO3 Ratio ABG pH ABG pCO2 ABG pO2 ABG HCO3 ABG O2 Saturation ABG Base Excess FiO2 Sodium Potassium Chloride Carbon Dioxide Anion Gap BUN Creatinine Est GFR ( Amer) Est GFR (Non-Af Amer) Glucose Calcium Total Bilirubin AST ALT Alkaline Phosphatase Total Protein Albumin Blood Type O POSITIVE Antibody Screen NEGATIVE Impressions: Abdomen Ultrasound 11/08/17 05:00 IMPRESSION: Cholelithiasis with borderline gallbladder wall thickening and positive ultrasonographic Dennis's sign. Further evaluation with HIDA scan may be beneficial. Abdomen/Pelvis CT 11/08/17 08:13 IMPRESSION: Stones in the gallbladder with pericholecystic inflammatory change worrisome for acute cholecystitis. Findings discussed with patient's attending surgeon Chest X-Ray 11/09/17 06:00 IMPRESSION: NO ACUTE RADIOGRAPHIC FINDING IN THE CHEST. SUPPORT DEVICE(S) IN EXPECTED LOCATIONS. Assessment & Plan - Diagnosis (1) Abdominal pain Qualifiers: Abdominal location: right upper quadrant Qualified Code(s): R10.11 - Right upper quadrant pain Is this a current diagnosis for this admission?: Yes Plan: Status post open cholecystectomy follow-up as per surgery (2) Autism Is this a current diagnosis for this admission?: Yes (3) Obesity Qualifiers: Obesity type: due to excess calories Body mass index: BMI 38.0-38.9 Is this a current diagnosis for this admission?: Yes (4) Respiratory failure Qualifiers: Chronicity: acute Is this a current diagnosis for this admission?: Yes Plan: s/p extubation x 24 stable on r/a - Time Total Critical Time (Minutes): 40
--- NOTE | 2017-11-11 08:11 | PDOC PROGRESS REPORT ---
Subjective Progress Note for:: 11/09/17 Subjective:: stable Reason For Visit: SEPTIC SHOCK Physical Exam Vital Signs: Temp Pulse Resp BP Pulse Ox 98.2 F 109 H 16 88/50 L 96 11/10/17 05:22 11/09/17 19:57 11/10/17 02:00 11/10/17 01:53 11/10/17 02:00 Intake & Output 11/09/17 11/10/17 11/11/17 06:59 06:59 06:59 Intake Total 44945 5244 Output Total 80598 2235 Balance 493 3009 Weight 130 kg 128.1 kg General appearance: PRESENT: no acute distress, cooperative, disheveled Head exam: PRESENT: atraumatic, normocephalic Eye exam: PRESENT: conjunctiva pale, EOMI. ABSENT: nystagmus Mouth exam: PRESENT: dry mucosa, neck supple, tongue midline Neck exam: ABSENT: carotid bruit, JVD, lymphadenopathy, thyromegaly, tracheal deviation, tracheostomy Respiratory exam: PRESENT: decreased breath sounds, rales, rhonchi, unlabored. ABSENT: prolonged expiratory phas, retraction, stridor Cardiovascular exam: PRESENT: RRR, rubs, +S2, systolic murmur Pulses: PRESENT: normal radial pulses GI/Abdominal exam: PRESENT: other - s/p surgery Gentrourinary exam: PRESENT: indwelling catheter Extremities exam: ABSENT: calf tenderness, clubbing, joint swelling Musculoskeletal exam: ABSENT: deformity, dislocation Neurological exam: PRESENT: awake, oriented to person, oriented to place, oriented to time Psychiatric exam: PRESENT: flat affect Skin exam: PRESENT: dry, warm Results Laboratory Results: 11/10/17 05:16 11/10/17 05:16 11/09/17 11/09/17 11/09/17 04:31 09:45 15:26 WBC RBC Hgb Hct MCV MCH MCHC RDW Plt Count Seg Neutrophils % Lymphocytes % Monocytes % Eosinophils % Basophils % Absolute Neutrophils Absolute Lymphocytes Absolute Monocytes Absolute Eosinophils Absolute Basophils Carbonic Acid Cancelled HCO3/H2CO3 Ratio Cancelled ABG pH Cancelled ABG pCO2 Cancelled ABG pO2 Cancelled ABG HCO3 Cancelled ABG O2 Saturation Cancelled ABG Base Excess Cancelled FiO2 Cancelled Sodium 143.0 Potassium 3.8 Chloride 112 H Carbon Dioxide 23 Anion Gap 8 BUN 10 Creatinine 0.68 Est GFR ( Amer) > 60 Est GFR (Non-Af Amer) > 60 Glucose 149 H Calcium 7.3 L Total Bilirubin 1.4 H AST 211 H ALT 108 H Alkaline Phosphatase 74 Total Protein 4.6 L Albumin 2.1 L 2.2 L Blood Type Antibody Screen 11/09/17 11/10/17 11/10/17 15:55 05:16 05:16 WBC 11.3 H RBC 2.27 L Hgb 6.5 L Hct 18.9 L MCV 83 MCH 28.6 MCHC 34.5 RDW 14.3 H Plt Count 140 L Seg Neutrophils % 80.9 H Lymphocytes % 11.6 L Monocytes % 6.8 Eosinophils % 0.1 Basophils % 0.6 Absolute Neutrophils 9.1 H Absolute Lymphocytes 1.3 Absolute Monocytes 0.8 Absolute Eosinophils 0.0 Absolute Basophils 0.1 Carbonic Acid 1.04 L HCO3/H2CO3 Ratio 23:1 ABG pH 7.46 H ABG pCO2 34.7 L ABG pO2 84.1 ABG HCO3 24.1 ABG O2 Saturation 96.9 ABG Base Excess 0.6 FiO2 21% Sodium 141.0 Potassium 3.7 Chloride 109 H Carbon Dioxide 24 Anion Gap 8 BUN 16 Creatinine 0.73 Est GFR ( Amer) > 60 Est GFR (Non-Af Amer) > 60 Glucose 118 H Calcium 7.1 L Total Bilirubin 0.8 AST 189 H ALT 90 H Alkaline Phosphatase 66 Total Protein 4.5 L Albumin 2.2 L Blood Type Antibody Screen 11/10/17 06:15 WBC RBC Hgb Hct MCV MCH MCHC RDW Plt Count Seg Neutrophils % Lymphocytes % Monocytes % Eosinophils % Basophils % Absolute Neutrophils Absolute Lymphocytes Absolute Monocytes Absolute Eosinophils Absolute Basophils Carbonic Acid HCO3/H2CO3 Ratio ABG pH ABG pCO2 ABG pO2 ABG HCO3 ABG O2 Saturation ABG Base Excess FiO2 Sodium Potassium Chloride Carbon Dioxide Anion Gap BUN Creatinine Est GFR ( Amer) Est GFR (Non-Af Amer) Glucose Calcium Total Bilirubin AST ALT Alkaline Phosphatase Total Protein Albumin Blood Type O POSITIVE Antibody Screen NEGATIVE Impressions: Abdomen Ultrasound 11/08/17 05:00 IMPRESSION: Cholelithiasis with borderline gallbladder wall thickening and positive ultrasonographic Dennis's sign. Further evaluation with HIDA scan may be beneficial. Abdomen/Pelvis CT 11/08/17 08:13 IMPRESSION: Stones in the gallbladder with pericholecystic inflammatory change worrisome for acute cholecystitis. Findings discussed with patient's attending surgeon Chest X-Ray 11/09/17 06:00 IMPRESSION: NO ACUTE RADIOGRAPHIC FINDING IN THE CHEST. SUPPORT DEVICE(S) IN EXPECTED LOCATIONS. Assessment & Plan - Diagnosis (1) Abdominal pain Qualifiers: Abdominal location: right upper quadrant Qualified Code(s): R10.11 - Right upper quadrant pain Is this a current diagnosis for this admission?: Yes Plan: Status post open cholecystectomy follow-up as per surgery (2) Autism Is this a current diagnosis for this admission?: Yes (3) Obesity Qualifiers: Obesity type: due to excess calories Body mass index: BMI 38.0-38.9 Is this a current diagnosis for this admission?: Yes (4) Respiratory failure Qualifiers: Chronicity: acute Is this a current diagnosis for this admission?: Yes Plan: stable - Time Total Critical Time (Minutes): 45
[2017-11-11] MEDS: ACETAMINOPHEN 325 MG TABLET PO PRN (08:32)
[2017-11-11] MEDS: BENZTROPINE MESYLATE 1 MG TABLET PO SCH ×2 (08:34→18:07)
[2017-11-11] MEDS: DULOXETINE HCL 30 MG CAPSULE.DR PO SCH ×2 (08:35→21:15)
[2017-11-11] MEDS: FAMOTIDINE INJ/PF 20 MG/2 ML SDV IV SCH ×2 (08:36→21:15)
[2017-11-11] MEDS: TOPIRAMATE 100 MG TABLET PO SCH ×2 (08:36→21:15)
[2017-11-11] MEDS: AMPICILLIN SODIUM 500 MG in NORMAL SALINE 25 ML IV SCH ×3 (09:50→21:16)
[2017-11-11] MEDS: RISPERIDONE 1 MG TABLET PO SCH ×2 (09:54→21:14)
[2017-11-11] MEDS: LEVOFLOXACIN 750 MG/D5W RTU 750 MG/150 ML RTUPB IV SCH (09:54)
[2017-11-11] MEDS ORDERED: CEFTAZIDIME PENTAHYDRATE 2 GM in DEXTROSE 5%-WATER 100 ML IV SCH (14:00)
--- NOTE | 2017-11-11 18:27 | PDOC PROGRESS REPORT ---
Subjective Progress Note for:: 11/11/17 Subjective:: The patient is seen sitting up at bedside in the ICU. He is awake, alert and in good spirits. Reason For Visit: SEPTIC SHOCK Physical Exam Vital Signs: Temp Pulse Resp BP Pulse Ox 97.5 F 114 H 23 H 118/73 100 11/11/17 14:00 11/11/17 14:00 11/11/17 18:07 11/11/17 18:07 11/11/17 18:07 Intake & Output 11/10/17 11/11/17 11/12/17 06:59 06:59 06:59 Intake Total 5244 2410 1436 Output Total 2235 3950 870 Balance 3009 -1540 566 Weight 128.1 kg General appearance: PRESENT: no acute distress, cooperative, morbidly obese Respiratory exam: PRESENT: other - No increased work of breathing.. ABSENT: rales, rhonchi, wheezes Cardiovascular exam: PRESENT: RRR. ABSENT: gallop, rubs, systolic murmur Pulses: PRESENT: normal femoral pulses, normal dorsalis pedis pul GI/Abdominal exam: PRESENT: normal bowel sounds, soft. ABSENT: distended, hernia, mass, tenderness Extremities exam: ABSENT: clubbing, pedal edema, tenderness Neurological exam: PRESENT: alert, awake, oriented to person, CN II-XII grossly intact. ABSENT: motor sensory deficit Skin exam: PRESENT: dry, intact, warm Results Laboratory Results: 11/10/17 18:15 11/10/17 05:16 11/10/17 18:15 WBC 11.4 H RBC 2.82 L Hgb 7.7 L Hct 23.4 L MCV 83 MCH 27.5 MCHC 33.0 RDW 14.5 H Plt Count 181 Seg Neutrophils % 76.1 Lymphocytes % 18.1 Monocytes % 5.3 Eosinophils % 0.2 Basophils % 0.3 Absolute Neutrophils 8.7 H Absolute Lymphocytes 2.1 Absolute Monocytes 0.6 Absolute Eosinophils 0.0 Absolute Basophils 0.0 11/08/17 16:15 Gallbladder Gram Stain - Final 11/08/17 16:15 Gallbladder Wound Culture - Final Escherichia Coli Enterococcus Avium Peptostreptococcus Species Bacteroides Fragilis Group Impressions: Abdomen Ultrasound 11/08/17 05:00 IMPRESSION: Cholelithiasis with borderline gallbladder wall thickening and positive ultrasonographic Dennis's sign. Further evaluation with HIDA scan may be beneficial. Abdomen/Pelvis CT 11/08/17 08:13 IMPRESSION: Stones in the gallbladder with pericholecystic inflammatory change worrisome for acute cholecystitis. Findings discussed with patient's attending surgeon Chest X-Ray 11/09/17 06:00 IMPRESSION: NO ACUTE RADIOGRAPHIC FINDING IN THE CHEST. SUPPORT DEVICE(S) IN EXPECTED LOCATIONS. Assessment & Plan - Diagnosis (1) Acute kidney injury Is this a current diagnosis for this admission?: Yes Plan: IV fluids, avoid nephrotoxic substances, and monitor electrolytes. Resolved. (2) Autism Is this a current diagnosis for this admission?: Yes (3) Cholelithiasis Qualifiers: Cholelithiasis location: gallbladder Cholecystitis presence: with cholecystitis Cholecystitis acuity: acute Biliary obstruction: with biliary obstruction Qualified Code(s): K80.01 - Calculus of gallbladder with acute cholecystitis with obstruction Is this a current diagnosis for this admission?: Yes (4) Elevated LFTs Is this a current diagnosis for this admission?: Yes (5) History of endoscopic retrograde cholangiopancreatography Is this a current diagnosis for this admission?: Yes (6) Obesity Qualifiers: Obesity type: due to excess calories Body mass index: BMI 38.0-38.9 Is this a current diagnosis for this admission?: Yes (7) Respiratory failure Qualifiers: Chronicity: acute Is this a current diagnosis for this admission?: Yes (8) Schizophrenia Is this a current diagnosis for this admission?: Yes (9) Severe sepsis Is this a current diagnosis for this admission?: Yes - Time Time Spent with patient: 25-34 minutes Medications reviewed and adjusted accordingly: Yes Anticipated discharge: Home
--- NOTE | 2017-11-11 20:39 | PDOC PROGRESS REPORT ---
Subjective Progress Note for:: 11/11/17 Subjective:: In good spirits. No c/o Reason For Visit: SEPTIC SHOCK Physical Exam Vital Signs: Temp Pulse Resp BP Pulse Ox 99.1 F 133 H 19 112/71 98 11/11/17 19:50 11/11/17 19:50 11/11/17 19:50 11/11/17 19:50 11/11/17 19:50 Intake & Output 11/10/17 11/11/17 11/12/17 06:59 06:59 06:59 Intake Total 5244 2410 3216 Output Total 2231 3950 3490 Balance 8268 -0494 -776 Weight 128.1 kg Exam: Looks pale and tachycardic at 133/min Results Laboratory Results: 11/10/17 18:15 11/10/17 05:16 11/10/17 06:15 Blood Type O POSITIVE Antibody Screen NEGATIVE 11/08/17 16:15 Gallbladder Gram Stain - Final 11/08/17 16:15 Gallbladder Wound Culture - Final Escherichia Coli Enterococcus Avium Peptostreptococcus Species Bacteroides Fragilis Group Impressions: Abdomen Ultrasound 11/08/17 05:00 IMPRESSION: Cholelithiasis with borderline gallbladder wall thickening and positive ultrasonographic Dennis's sign. Further evaluation with HIDA scan may be beneficial. Abdomen/Pelvis CT 11/08/17 08:13 IMPRESSION: Stones in the gallbladder with pericholecystic inflammatory change worrisome for acute cholecystitis. Findings discussed with patient's attending surgeon Chest X-Ray 11/09/17 06:00 IMPRESSION: NO ACUTE RADIOGRAPHIC FINDING IN THE CHEST. SUPPORT DEVICE(S) IN EXPECTED LOCATIONS. Assessment & Plan - Time Time Spent with patient: 15-24 minutes - Plan Summary Plan Summary: HB after blood transfusion yesterday was 7.7. Being tachycardic will transfuse another unit of PRBC. Transfer to [facility]
[2017-11-11] MEDS: CLONAZEPAM 1 MG TABLET PO SCH (21:15)
[2017-11-12] MEDS: AMPICILLIN SODIUM 500 MG in NORMAL SALINE 25 ML IV SCH ×3 (03:44→14:34)
[2017-11-12] MEDS: LANSOPRAZOLE 15 MG TAB.RAP.DR PO SCH (06:23)
[2017-11-12] MEDS: CLONAZEPAM 1 MG TABLET PO SCH ×3 (06:24→21:54)
[2017-11-12 06:30] LABS: ARTERIAL BLOOD BASE EXCESS -2.5 mmol/L; ARTERIAL BLOOD H2CO3 0.95 mmol/L (1.05-1.35); ARTERIAL BLOOD PCO2 31.5 mmHg (35-45); ARTERIAL BLOOD PH 7.44 (7.35-7.45); ARTERIAL BLOOD PO2 86.6 mmHg (80-100)
[2017-11-12 06:32] LABS: ARTERIAL BLOOD FIO2 ROOM AIR
[2017-11-12 06:45] LABS: ALANINE AMINOTRANSFERASE 74 U/L (21-72); ALBUMIN 2.4 g/dL (3.5-5.0); ALKALINE PHOSPHATASE 87 U/L (38-126); ANION GAP 10 (5-19); ASPARTATE AMINO TRANSFERASE 91 U/L (17-59); BILIRUBIN,DIRECT 0.8 mg/dL (0.0-0.4); BILIRUBIN,TOTAL 1.4 mg/dL (0.2-1.3); BLOOD UREA NITROGEN 6 mg/dL (7-20); CALCIUM 7.6 mg/dL (8.4-10.2); CARBON DIOXIDE 22 mmol/L (22-30); CHLORIDE 112 mmol/L (98-107); GLUCOSE 104 mg/dL (75-110); PHOSPHORUS 4.1 mg/dL (2.5-4.5); POTASSIUM 3.6 mmol/L (3.6-5.0); SODIUM 143.6 mmol/L (137-145); TOTAL PROTEIN 5.1 g/dL (6.3-8.2)
[2017-11-12 06:54] LABS: HEMATOCRIT 23.8 % (37.9-51.0); HEMOGLOBIN 8.3 g/dL (13.5-17.0); MEAN CORPUSCULAR HEMOGLOBIN 29.2 pg (27.0-33.4); MEAN CORPUSCULAR HGB CONC 34.9 g/dL (32.0-36.0); MEAN CORPUSCULAR VOLUME 84 fl (80-97); PLATELET COUNT 212 10^3/uL (150-450); RED BLOOD COUNT 2.85 10^6/uL (4.35-5.55); RED CELL DISTRIBUTION WIDTH 14.1 % (11.5-14.0); WHITE BLOOD COUNT 10.1 10^3/uL (4.0-10.5)
[2017-11-12 07:27] LABS: ABSOLUTE LYMPHOCYTES# (MANUAL) 2.3 10^3/uL (0.5-4.7); ABSOLUTE MONOCYTES # (MANUAL) 0.8 10^3/uL (0.1-1.4); BAND NEUTROPHILS % (MANUAL) 1 % (3-5); BASOPHILS % (MANUAL) 0 % (0-2); EOSINOPHILS % (MANUAL) 0 % (0-6); LYMPHOCYTES % (MANUAL) 23 % (13-45); MONOCYTES % (MANUAL) 8 % (3-13); NUCLEATED RED BLOOD CELLS 1 /100 WBC (0); SEGMENTED NEUTROPHILS % (MAN) 68 % (42-78); TOTAL CELLS COUNTED 100
[2017-11-12 07:28] LABS: ANISOCYTOSIS SLIGHT; OVALOCYTES SLIGHT; PLATELET COMMENT ADEQUATE; POIKILOCYTOSIS SLIGHT
--- NOTE | 2017-11-12 07:46 | RADIOLOGY REPORT (SQ) ---
EXAM DESCRIPTION: CHEST SINGLE VIEW COMPLETED DATE/TIME: 11/12/2017 6:48 am REASON FOR STUDY: pna COMPARISON: AP chest 11/09/2017, 11/08/2017 EXAM PARAMETERS: NUMBER OF VIEWS: One view. TECHNIQUE: Single frontal radiographic view of the chest acquired. RADIATION DOSE: NA LIMITATIONS: None. FINDINGS: LUNGS AND PLEURA: No acute infiltrates. No pleural effusions. No pneumothorax. MEDIASTINUM AND HILAR STRUCTURES: No masses. Contour normal. HEART AND VASCULAR STRUCTURES: Heart normal in size. Normal vasculature. BONES: No acute findings. HARDWARE: Endotracheal and nasogastric tubes have been removed. Right jugular central line tip super ior vena cava. OTHER: No other significant finding. IMPRESSION: No focal infiltrates. TECHNICAL DOCUMENTATION: JOB ID: [id number] [employer]- All Rights Reserved Reading location - IP/workstation name: [email or web address]
[2017-11-12] MEDS: ACETAMINOPHEN 325 MG TABLET PO PRN ×2 (08:10→14:03)
--- NOTE | 2017-11-12 08:27 | PDOC PROGRESS REPORT ---
Subjective Progress Note for:: 11/12/17 Subjective:: stable w/o complaints Reason For Visit: SEPTIC SHOCK Physical Exam Vital Signs: Temp Pulse Resp BP Pulse Ox 98.2 F 119 H 19 127/72 H 100 11/12/17 06:00 11/12/17 08:17 11/12/17 06:00 11/12/17 06:00 11/12/17 06:00 Intake & Output 11/11/17 11/12/17 11/13/17 06:59 06:59 06:59 Intake Total 2410 4791 Output Total 3950 5500 Balance -1540 -709 Weight 126.3 kg General appearance: PRESENT: no acute distress, cooperative, disheveled, morbidly obese Head exam: PRESENT: atraumatic, normocephalic Eye exam: PRESENT: conjunctiva pale, EOMI. ABSENT: nystagmus, scleral icterus Mouth exam: PRESENT: moist, neck supple, tongue midline Neck exam: ABSENT: carotid bruit, JVD, lymphadenopathy, thyromegaly, tracheal deviation, tracheostomy Respiratory exam: PRESENT: decreased breath sounds, rhonchi, unlabored. ABSENT : retraction, stridor Cardiovascular exam: PRESENT: RRR, +S1, +S2 Pulses: PRESENT: normal radial pulses GI/Abdominal exam: PRESENT: normal bowel sounds, soft, tenderness, other - s/p surgery Gentrourinary exam: PRESENT: indwelling catheter Extremities exam: PRESENT: full ROM. ABSENT: calf tenderness, clubbing, joint swelling Musculoskeletal exam: PRESENT: full ROM. ABSENT: ambulatory, deformity, dislocation Neurological exam: PRESENT: alert, awake Psychiatric exam: PRESENT: normal mood Skin exam: PRESENT: dry, warm Results Laboratory Results: 11/12/17 06:15 11/12/17 06:15 11/10/17 11/12/17 11/12/17 06:15 06:15 06:15 WBC 10.1 RBC 2.85 L Hgb 8.3 L Hct 23.8 L MCV 84 MCH 29.2 MCHC 34.9 RDW 14.1 H Plt Count 212 Seg Neutrophils % Not Reportable Lymphocytes % Not Reportable Monocytes % Not Reportable Eosinophils % Not Reportable Basophils % Not Reportable Absolute Neutrophils Not Reportable Absolute Lymphocytes Not Reportable Absolute Monocytes Not Reportable Absolute Eosinophils Not Reportable Absolute Basophils Not Reportable Carbonic Acid 0.95 L HCO3/H2CO3 Ratio 22:1 ABG pH 7.44 ABG pCO2 31.5 L ABG pO2 86.6 ABG HCO3 21.0 ABG O2 Saturation 97.0 ABG Base Excess -2.5 FiO2 ROOM AIR Sodium Potassium Chloride Carbon Dioxide Anion Gap BUN Creatinine Est GFR ( Amer) Est GFR (Non-Af Amer) Glucose Calcium Phosphorus Magnesium Total Bilirubin AST ALT Alkaline Phosphatase Total Protein Albumin Blood Type O POSITIVE Antibody Screen NEGATIVE 11/12/17 06:15 WBC RBC Hgb Hct MCV MCH MCHC RDW Plt Count Seg Neutrophils % Lymphocytes % Monocytes % Eosinophils % Basophils % Absolute Neutrophils Absolute Lymphocytes Absolute Monocytes Absolute Eosinophils Absolute Basophils Carbonic Acid HCO3/H2CO3 Ratio ABG pH ABG pCO2 ABG pO2 ABG HCO3 ABG O2 Saturation ABG Base Excess FiO2 Sodium 143.6 Potassium 3.6 Chloride 112 H Carbon Dioxide 22 Anion Gap 10 BUN 6 L Creatinine 0.70 Est GFR ( Amer) > 60 Est GFR (Non-Af Amer) > 60 Glucose 104 Calcium 7.6 L Phosphorus 4.1 Magnesium 2.0 Total Bilirubin 1.4 H AST 91 H ALT 74 H Alkaline Phosphatase 87 Total Protein 5.1 L Albumin 2.4 L Blood Type Antibody Screen 11/08/17 16:15 Gallbladder Gram Stain - Final 11/08/17 16:15 Gallbladder Wound Culture - Final Escherichia Coli Enterococcus Avium Peptostreptococcus Species Bacteroides Fragilis Group Impressions: Abdomen Ultrasound 11/08/17 05:00 IMPRESSION: Cholelithiasis with borderline gallbladder wall thickening and positive ultrasonographic Dennis's sign. Further evaluation with HIDA scan may be beneficial. Abdomen/Pelvis CT 11/08/17 08:13 IMPRESSION: Stones in the gallbladder with pericholecystic inflammatory change worrisome for acute cholecystitis. Findings discussed with patient's attending surgeon Chest X-Ray 11/12/17 06:00 IMPRESSION: No focal infiltrates. Assessment & Plan - Diagnosis (1) Abdominal pain Qualifiers: Abdominal location: right upper quadrant Qualified Code(s): R10.11 - Right upper quadrant pain Is this a current diagnosis for this admission?: Yes Plan: Status post open cholecystectomy follow-up as per surgery (2) Autism Is this a current diagnosis for this admission?: Yes (3) Obesity Qualifiers: Obesity type: due to excess calories Body mass index: BMI 38.0-38.9 Is this a current diagnosis for this admission?: Yes (4) Respiratory failure Qualifiers: Chronicity: acute Is this a current diagnosis for this admission?: Yes Plan: resolved - Time Total Critical Time (Minutes): 40
[2017-11-12] MEDS: FAMOTIDINE INJ/PF 20 MG/2 ML SDV IV SCH ×2 (10:14→21:54)
[2017-11-12] MEDS ORDERED: PROMETHAZINE HCL INJ 25 MG/1 ML VIAL IV PRN (10:23)
[2017-11-12] MEDS: METRONIDAZOLE 500 MG/NS RTU 500 MG/100 ML RTUPB IV SCH ×3 (11:01→21:54)
[2017-11-12] MEDS: LEVOFLOXACIN 750 MG/D5W RTU 750 MG/150 ML RTUPB IV SCH (11:16)
[2017-11-12] MEDS: BENZTROPINE MESYLATE 1 MG TABLET PO SCH ×2 (11:17→18:55)
[2017-11-12] MEDS: DULOXETINE HCL 30 MG CAPSULE.DR PO SCH ×2 (11:18→21:54)
[2017-11-12] MEDS: RISPERIDONE 1 MG TABLET PO SCH ×2 (11:19→21:54)
[2017-11-12] MEDS: TOPIRAMATE 100 MG TABLET PO SCH ×2 (11:19→21:54)
--- NOTE | 2017-11-12 13:25 | PDOC PROGRESS REPORT ---
Subjective Progress Note for:: 11/12/17 Subjective:: The patient is seen resting comfortably in bed. There are no new complaints. Reason For Visit: SEPTIC SHOCK Physical Exam Vital Signs: Temp Pulse Resp BP Pulse Ox 98.5 F 101 H 25 H 119/77 100 11/12/17 12:16 11/12/17 12:16 11/12/17 12:16 11/12/17 12:16 11/12/17 06:00 Intake & Output 11/11/17 11/12/17 11/13/17 06:59 06:59 06:59 Intake Total 2410 4791 Output Total 3950 5500 10 Balance -1540 -709 -10 Weight 126.3 kg Results Laboratory Results: 11/12/17 06:15 11/12/17 06:15 11/10/17 11/12/17 11/12/17 06:15 06:15 06:15 WBC 10.1 RBC 2.85 L Hgb 8.3 L Hct 23.8 L MCV 84 MCH 29.2 MCHC 34.9 RDW 14.1 H Plt Count 212 Seg Neutrophils % Not Reportable Lymphocytes % Not Reportable Monocytes % Not Reportable Eosinophils % Not Reportable Basophils % Not Reportable Absolute Neutrophils Not Reportable Absolute Lymphocytes Not Reportable Absolute Monocytes Not Reportable Absolute Eosinophils Not Reportable Absolute Basophils Not Reportable Carbonic Acid 0.95 L HCO3/H2CO3 Ratio 22:1 ABG pH 7.44 ABG pCO2 31.5 L ABG pO2 86.6 ABG HCO3 21.0 ABG O2 Saturation 97.0 ABG Base Excess -2.5 FiO2 ROOM AIR Sodium Potassium Chloride Carbon Dioxide Anion Gap BUN Creatinine Est GFR ( Amer) Est GFR (Non-Af Amer) Glucose Calcium Phosphorus Magnesium Total Bilirubin AST ALT Alkaline Phosphatase Total Protein Albumin Blood Type O POSITIVE Antibody Screen NEGATIVE 11/12/17 06:15 WBC RBC Hgb Hct MCV MCH MCHC RDW Plt Count Seg Neutrophils % Lymphocytes % Monocytes % Eosinophils % Basophils % Absolute Neutrophils Absolute Lymphocytes Absolute Monocytes Absolute Eosinophils Absolute Basophils Carbonic Acid HCO3/H2CO3 Ratio ABG pH ABG pCO2 ABG pO2 ABG HCO3 ABG O2 Saturation ABG Base Excess FiO2 Sodium 143.6 Potassium 3.6 Chloride 112 H Carbon Dioxide 22 Anion Gap 10 BUN 6 L Creatinine 0.70 Est GFR ( Amer) > 60 Est GFR (Non-Af Amer) > 60 Glucose 104 Calcium 7.6 L Phosphorus 4.1 Magnesium 2.0 Total Bilirubin 1.4 H AST 91 H ALT 74 H Alkaline Phosphatase 87 Total Protein 5.1 L Albumin 2.4 L Blood Type Antibody Screen 11/08/17 16:15 Gallbladder Gram Stain - Final 11/08/17 16:15 Gallbladder Wound Culture - Final Escherichia Coli Enterococcus Avium Peptostreptococcus Species Bacteroides Fragilis Group Impressions: Abdomen Ultrasound 11/08/17 05:00 IMPRESSION: Cholelithiasis with borderline gallbladder wall thickening and positive ultrasonographic Dennis's sign. Further evaluation with HIDA scan may be beneficial. Abdomen/Pelvis CT 11/08/17 08:13 IMPRESSION: Stones in the gallbladder with pericholecystic inflammatory change worrisome for acute cholecystitis. Findings discussed with patient's attending surgeon Chest X-Ray 11/12/17 06:00 IMPRESSION: No focal infiltrates. Assessment & Plan - Diagnosis (1) Acute kidney injury Is this a current diagnosis for this admission?: Yes (2) Autism Is this a current diagnosis for this admission?: Yes (3) Cholelithiasis Qualifiers: Cholelithiasis location: gallbladder Cholecystitis presence: with cholecystitis Cholecystitis acuity: acute Biliary obstruction: with biliary obstruction Qualified Code(s): K80.01 - Calculus of gallbladder with acute cholecystitis with obstruction Is this a current diagnosis for this admission?: Yes (4) Elevated LFTs Is this a current diagnosis for this admission?: Yes (5) History of endoscopic retrograde cholangiopancreatography Is this a current diagnosis for this admission?: Yes (6) Obesity Qualifiers: Obesity type: due to excess calories Body mass index: BMI 38.0-38.9 Is this a current diagnosis for this admission?: Yes (7) Respiratory failure Qualifiers: Chronicity: acute Is this a current diagnosis for this admission?: Yes (8) Schizophrenia Is this a current diagnosis for this admission?: Yes (9) Severe sepsis Is this a current diagnosis for this admission?: Yes - Time Time Spent with patient: 25-34 minutes Medications reviewed and adjusted accordingly: Yes Anticipated discharge: Home
--- NOTE | 2017-11-12 14:55 | PDOC PROGRESS REPORT ---
Subjective Progress Note for:: 11/12/17 Subjective:: No pains. Somewhat drowsy after Phenergan. Spoke with mother about getting him out of the ICU.Will transfer to a tele bed since still no bed in [facility] Reason For Visit: SEPTIC SHOCK Physical Exam Vital Signs: Temp Pulse Resp BP Pulse Ox 98.5 F 101 H 25 H 119/77 100 11/12/17 12:16 11/12/17 12:16 11/12/17 12:16 11/12/17 12:16 11/12/17 06:00 Intake & Output 11/11/17 11/12/17 11/13/17 06:59 06:59 06:59 Intake Total 2410 4791 Output Total 3950 5500 10 Balance -1540 -709 -10 Weight 126.3 kg Exam: Abd is soft and non tender. TATIANA drain Less than 15 ccs. Pulled out Results Laboratory Results: 11/12/17 06:15 11/12/17 06:15 11/10/17 11/12/17 11/12/17 06:15 06:15 06:15 WBC 10.1 RBC 2.85 L Hgb 8.3 L Hct 23.8 L MCV 84 MCH 29.2 MCHC 34.9 RDW 14.1 H Plt Count 212 Seg Neutrophils % Not Reportable Lymphocytes % Not Reportable Monocytes % Not Reportable Eosinophils % Not Reportable Basophils % Not Reportable Absolute Neutrophils Not Reportable Absolute Lymphocytes Not Reportable Absolute Monocytes Not Reportable Absolute Eosinophils Not Reportable Absolute Basophils Not Reportable Carbonic Acid 0.95 L HCO3/H2CO3 Ratio 22:1 ABG pH 7.44 ABG pCO2 31.5 L ABG pO2 86.6 ABG HCO3 21.0 ABG O2 Saturation 97.0 ABG Base Excess -2.5 FiO2 ROOM AIR Sodium Potassium Chloride Carbon Dioxide Anion Gap BUN Creatinine Est GFR ( Amer) Est GFR (Non-Af Amer) Glucose Calcium Phosphorus Magnesium Total Bilirubin AST ALT Alkaline Phosphatase Total Protein Albumin Blood Type O POSITIVE Antibody Screen NEGATIVE 11/12/17 06:15 WBC RBC Hgb Hct MCV MCH MCHC RDW Plt Count Seg Neutrophils % Lymphocytes % Monocytes % Eosinophils % Basophils % Absolute Neutrophils Absolute Lymphocytes Absolute Monocytes Absolute Eosinophils Absolute Basophils Carbonic Acid HCO3/H2CO3 Ratio ABG pH ABG pCO2 ABG pO2 ABG HCO3 ABG O2 Saturation ABG Base Excess FiO2 Sodium 143.6 Potassium 3.6 Chloride 112 H Carbon Dioxide 22 Anion Gap 10 BUN 6 L Creatinine 0.70 Est GFR ( Amer) > 60 Est GFR (Non-Af Amer) > 60 Glucose 104 Calcium 7.6 L Phosphorus 4.1 Magnesium 2.0 Total Bilirubin 1.4 H AST 91 H ALT 74 H Alkaline Phosphatase 87 Total Protein 5.1 L Albumin 2.4 L Blood Type Antibody Screen 11/08/17 16:15 Gallbladder Gram Stain - Final 11/08/17 16:15 Gallbladder Wound Culture - Final Escherichia Coli Enterococcus Avium Peptostreptococcus Species Bacteroides Fragilis Group Impressions: Abdomen Ultrasound 11/08/17 05:00 IMPRESSION: Cholelithiasis with borderline gallbladder wall thickening and positive ultrasonographic Dennis's sign. Further evaluation with HIDA scan may be beneficial. Abdomen/Pelvis CT 11/08/17 08:13 IMPRESSION: Stones in the gallbladder with pericholecystic inflammatory change worrisome for acute cholecystitis. Findings discussed with patient's attending surgeon Chest X-Ray 11/12/17 06:00 IMPRESSION: No focal infiltrates. Assessment & Plan - Time Time Spent with patient: 15-24 minutes - Plan Summary Plan Summary: Continue IV antibiotics Transfer to tele Monitor H/H HB 8.3 after 1 unit of PRBC yesterday Continue to encourage po intake.
[2017-11-12] MEDS: TRAMADOL HCL 50 MG TABLET PO PRN (19:30)
[2017-11-13] MEDS: PROMETHAZINE HCL INJ 25 MG/1 ML VIAL IV PRN ×2 (00:03→08:35)
[2017-11-13] MEDS: TRAMADOL HCL 50 MG TABLET PO PRN ×3 (03:02→22:30)
[2017-11-13] MEDS: METRONIDAZOLE 500 MG/NS RTU 500 MG/100 ML RTUPB IV SCH ×4 (03:03→21:35)
[2017-11-13] MEDS: AMPICILLIN SODIUM 500 MG in NORMAL SALINE 25 ML IV SCH ×6 (04:33→20:03)
[2017-11-13] MEDS: LANSOPRAZOLE 15 MG TAB.RAP.DR PO SCH (06:42)
[2017-11-13] MEDS: CLONAZEPAM 1 MG TABLET PO SCH ×3 (06:42→22:30)
[2017-11-13 08:39] LABS: HEMATOCRIT 24.6 % (37.9-51.0); HEMOGLOBIN 8.6 g/dL (13.5-17.0); MEAN CORPUSCULAR HEMOGLOBIN 29.2 pg (27.0-33.4); MEAN CORPUSCULAR HGB CONC 34.7 g/dL (32.0-36.0); MEAN CORPUSCULAR VOLUME 84 fl (80-97); PLATELET COUNT 305 10^3/uL (150-450); RED BLOOD COUNT 2.93 10^6/uL (4.35-5.55); RED CELL DISTRIBUTION WIDTH 14.5 % (11.5-14.0); WHITE BLOOD COUNT 14.8 10^3/uL (4.0-10.5)
--- NOTE | 2017-11-13 08:42 | PDOC PROGRESS REPORT ---
Subjective Progress Note for:: 11/13/17 Subjective:: Patient has no specific complaints, tolerating diet, voiding; has had 2 bowel movements during hospitalization by his report Reason For Visit: SEPTIC SHOCK Physical Exam Vital Signs: Temp Pulse Resp BP Pulse Ox 99.6 F 130 H 18 119/84 98 11/13/17 07:19 11/13/17 07:19 11/13/17 07:19 11/13/17 07:19 11/13/17 07:19 Intake & Output 11/12/17 11/13/17 11/14/17 06:59 06:59 06:59 Intake Total 4791 1283 Output Total 5500 1685 Balance -709 -402 Weight 126.3 kg 124.3 kg General appearance: PRESENT: other - Tachycardic; EKG shows sinus tachycardia GI/Abdominal exam: PRESENT: other - Purulent discharge coming from subcostal incision; at bedside all hardy removed, subcutaneous tissue for later open, and purulent drainage evacuated from wound; wound irrigated with peroxide and packed open with 3 moist saline 4 x 4's Results Laboratory Results: 11/12/17 06:15 Impressions: Abdomen Ultrasound 11/08/17 05:00 IMPRESSION: Cholelithiasis with borderline gallbladder wall thickening and positive ultrasonographic Dennis's sign. Further evaluation with HIDA scan may be beneficial. Abdomen/Pelvis CT 11/08/17 08:13 IMPRESSION: Stones in the gallbladder with pericholecystic inflammatory change worrisome for acute cholecystitis. Findings discussed with patient's attending surgeon Chest X-Ray 11/12/17 06:00 IMPRESSION: No focal infiltrates. Assessment & Plan - Diagnosis (1) Septic shock Is this a current diagnosis for this admission?: Yes Plan: Patient now 5 days status post laparoscopic conversion to open cholecystectomy for acute gangrenous cholecystitis with cholelithiasis; postoperative drain removed; now with superficial wound infection, not unexpected given the magnitude of contamination from the initial operation. Recommendations: 1. Start dressing changes; orders written; reviewed with nursing staff 2. We will likely place wound VAC tomorrow. 3. Suggested we get a peripheral IV started and discontinue central line; (2) Cholelithiasis Qualifiers: Cholelithiasis location: gallbladder Cholecystitis presence: with cholecystitis Cholecystitis acuity: acute Biliary obstruction: with biliary obstruction Qualified Code(s): K80.01 - Calculus of gallbladder with acute cholecystitis with obstruction Is this a current diagnosis for this admission?: Yes (3) Elevated LFTs Is this a current diagnosis for this admission?: Yes (4) Obesity Qualifiers: Obesity type: due to excess calories Body mass index: BMI 38.0-38.9 Is this a current diagnosis for this admission?: Yes (5) Autism Is this a current diagnosis for this admission?: Yes (6) Schizophrenia Is this a current diagnosis for this admission?: Yes (7) History of endoscopic retrograde cholangiopancreatography Is this a current diagnosis for this admission?: Yes
[2017-11-13 09:06] LABS: ABSOLUTE LYMPHOCYTES# (MANUAL) 1.9 10^3/uL (0.5-4.7); ABSOLUTE MONOCYTES # (MANUAL) 1.2 10^3/uL (0.1-1.4); ABSOLUTE NEUTROPHILS# (MANUAL) 11.5 10^3/uL (1.7-8.2); BASOPHILS % (MANUAL) 0 % (0-2); EOSINOPHILS % (MANUAL) 1 % (0-6); LYMPHOCYTES % (MANUAL) 13 % (13-45); MONOCYTES % (MANUAL) 8 % (3-13); SEGMENTED NEUTROPHILS % (MAN) 78 % (42-78); TOTAL CELLS COUNTED 100
[2017-11-13 09:07] LABS: ANISOCYTOSIS SLIGHT; OVALOCYTES 1+; PLATELET COMMENT ADEQUATE; POIKILOCYTOSIS 1+; POLYCHROMASIA SLIGHT
[2017-11-13] MEDS ORDERED: BISACODYL 10 MG SUPP.RECT PR ONE (10:00)
[2017-11-13] MEDS ORDERED: LEVOFLOXACIN 750 MG TABLET PO SCH (10:00)
[2017-11-13] MEDS: NORMAL SALINE 1000 ML 1,000 ML IV PRN ×2 (10:03→20:06)
[2017-11-13] MEDS: RISPERIDONE 1 MG TABLET PO SCH ×2 (10:58→22:30)
[2017-11-13] MEDS: BENZTROPINE MESYLATE 1 MG TABLET PO SCH ×2 (10:59→17:22)
[2017-11-13] MEDS: FAMOTIDINE INJ/PF 20 MG/2 ML SDV IV SCH ×2 (10:59→22:30)
[2017-11-13] MEDS: TOPIRAMATE 100 MG TABLET PO SCH ×2 (11:00→22:30)
[2017-11-13] MEDS: DULOXETINE HCL 30 MG CAPSULE.DR PO SCH ×2 (11:01→22:30)
[2017-11-13] MEDS: KETOROLAC TROMETHAMINE INJ/PF 30 MG/1 ML SDV IV PRN (14:19)
[2017-11-13] MEDS ORDERED: PANTOPRAZOLE SODIUM 40 MG VIAL IV PRN (14:28)
[2017-11-13] MEDS: NORMAL SALINE 100 ML with PANTOPRAZOLE SODIUM 80 MG IV PRN ×2 (17:23)
--- NOTE | 2017-11-13 17:26 | PDOC PROGRESS REPORT ---
Subjective Progress Note for:: 11/13/17 Subjective:: The patient's surgical site was evaluated this morning by surgery. Afterwards the patient's heart rate was in girma 125- 140 range. An EKG was obtained and demonstrated sinus tachycardia. Surgery has addressed the patient's pain and has increased the patient's IV fluids. The patient is resting fitfully. Reason For Visit: SEPTIC SHOCK Physical Exam Vital Signs: Temp Pulse Resp BP Pulse Ox 99.7 F 128 H 20 129/69 H 97 11/13/17 11:07 11/13/17 11:07 11/13/17 11:07 11/13/17 11:07 11/13/17 11:07 Intake & Output 11/12/17 11/13/17 11/14/17 06:59 06:59 06:59 Intake Total 4791 1283 Output Total 5500 1685 Balance -709 -402 Weight 126.3 kg 124.3 kg General appearance: PRESENT: other - The patient is sleeping, but moaning and moving in his sleep. He will awaken briefl, but goes back to sleep. Respiratory exam: PRESENT: other - No increased work of breathing. No wheezes, rales, or rhonchi. No tactile fremitus. Cardiovascular exam: PRESENT: RRR. ABSENT: diastolic murmur, rubs, systolic murmur Pulses: PRESENT: normal femoral pulses, normal dorsalis pedis pul GI/Abdominal exam: PRESENT: hypoactive bowel sounds, soft, tenderness, other - obese. ABSENT: hernia, organolmegaly Extremities exam: PRESENT: +1 edema. ABSENT: clubbing, tenderness Neurological exam: PRESENT: CN II-XII grossly intact, other - The patient is somnolent, but moving all extremities.. ABSENT: motor sensory deficit Skin exam: PRESENT: dry, intact, warm Results Laboratory Results: 11/13/17 06:55 11/12/17 06:15 11/13/17 06:55 WBC 14.8 H RBC 2.93 L Hgb 8.6 L Hct 24.6 L MCV 84 MCH 29.2 MCHC 34.7 RDW 14.5 H Plt Count 305 Seg Neutrophils % Not Reportable Lymphocytes % Not Reportable Monocytes % Not Reportable Eosinophils % Not Reportable Basophils % Not Reportable Absolute Neutrophils Not Reportable Absolute Lymphocytes Not Reportable Absolute Monocytes Not Reportable Absolute Eosinophils Not Reportable Absolute Basophils Not Reportable Impressions: Abdomen Ultrasound 11/08/17 05:00 IMPRESSION: Cholelithiasis with borderline gallbladder wall thickening and positive ultrasonographic Dennis's sign. Further evaluation with HIDA scan may be beneficial. Abdomen/Pelvis CT 11/08/17 08:13 IMPRESSION: Stones in the gallbladder with pericholecystic inflammatory change worrisome for acute cholecystitis. Findings discussed with patient's attending surgeon Chest X-Ray 11/12/17 06:00 IMPRESSION: No focal infiltrates. Assessment & Plan - Diagnosis (1) Acute kidney injury Is this a current diagnosis for this admission?: Yes Plan: IV fluids, avoid nephrotoxic substances, and monitor electrolytes. Resolved. (2) Autism Is this a current diagnosis for this admission?: Yes (3) Cholelithiasis Qualifiers: Cholelithiasis location: gallbladder Cholecystitis presence: with cholecystitis Cholecystitis acuity: acute Biliary obstruction: with biliary obstruction Qualified Code(s): K80.01 - Calculus of gallbladder with acute cholecystitis with obstruction Is this a current diagnosis for this admission?: Yes (4) Elevated LFTs Is this a current diagnosis for this admission?: Yes Plan: Bilirubin is trending up. (5) History of endoscopic retrograde cholangiopancreatography Is this a current diagnosis for this admission?: Yes (6) Obesity Qualifiers: Obesity type: due to excess calories Body mass index: BMI 38.0-38.9 Is this a current diagnosis for this admission?: Yes (7) Respiratory failure Qualifiers: Chronicity: acute Is this a current diagnosis for this admission?: Yes Plan: Resolved (8) Schizophrenia Is this a current diagnosis for this admission?: Yes Plan: Continue home medications. (9) Severe sepsis Is this a current diagnosis for this admission?: Yes (10) Sinus tachycardia Is this a current diagnosis for this admission?: Yes Plan: Likely due to pain from manipulation of surgical site. Pt will receive IV toradol and increased IV fluids. I will monitor. IV antibiotics have been adjusted. I will order a serum lipase to rule out pancreatitis. - Time Time Spent with patient: 35 or more minutes Medications reviewed and adjusted accordingly: Yes Anticipated discharge: Home
--- NOTE | 2017-11-13 21:38 | EKG REPORT ---
SEVERITY:- BORDERLINE ECG - SINUS TACHYCARDIA BORDERLINE T ABNORMALITIES, ANTERIOR LEADS : Confirmed by: Monica Presley MD 13-Nov-2017 21:37:46
[2017-11-13] MEDS ORDERED: PANTOPRAZOLE SODIUM 40 MG VIAL IV SCH ×2 (22:00)
--- NOTE | 2017-11-13 22:02 | Operative Report ---
Nonrecallable Operative Report DATE OF SURGERY: 11/13/17 PREOPERATIVE DIAGNOSIS: 1. Acute arterial hemorrhage from subcostal incision. 2. Status post open cholecystectomy with superficial wound infection POSTOPERATIVE DIAGNOSIS: Same with arterial bleeder subcutaneous tissue upper lateral aspect of subcostal incision OPERATION: Local wound exploration at bedside, control of hemorrhage with Vicryl suture SURGEON: LSE ARNOLD ANESTHESIA: Other - None TISSUE REMOVED OR ALTERED: None COMPLICATIONS: None ESTIMATED BLOOD LOSS: 100 cc INTRAOPERATIVE FINDINGS: See below PROCEDURE: At approximately 9:20 PM I was called by Eva, the nurse for Chris Magallanes in [facility], because of bleeding from the subcostal incision which occurred after the nurse perform the dressing change as ordered. I recommended that the nurse observed the area for 10-15 minutes, and have the area assessed by 1 of the senior nurses and call me back if the bleeding did not olya. Call me back approximately 10 minutes later to state that the bleeding was continuing despite leaving the packing in place. I came up to the patient's room and found oversize dressing over the subcostal wound soaked with blood. All dressings removed, and there was active arterial bleeding from the deep lateral pocket of the subcostal incision. I initially packed some Surgicel and Gelfoam into the lateral crevice of the incision but this did not control the hemorrhage. Therefore we explored the incision a little deeper, and at bedside , with the patient cooperating, I was able to identify a small arterial pumper coming from the superior lateral aspect of the subcutaneous wall of the wound. This was oversewn with 3-0 Vicryl suture and the bleeding abated. I left the Gelfoam and Surgicel in position, and placed moist saline gauze, dry gauze and micropore tape. The patient tolerated procedure well. We plan to check a CBC in the morning. Leave the packing in place until further instructions.
[2017-11-14] MEDS: AMPICILLIN SODIUM 500 MG in NORMAL SALINE 25 ML IV SCH ×4 (02:32→22:13)
[2017-11-14] MEDS: METRONIDAZOLE 500 MG/NS RTU 500 MG/100 ML RTUPB IV SCH ×4 (03:21→20:27)
[2017-11-14 05:20] LABS: INTERNATIONAL RATION (INR) 1.17; PROTHROMBIN TIME 15.5 SEC (11.4-15.4)
[2017-11-14 05:21] LABS: PARTIAL THROMBOPLASTIN TIME 32.9 SEC (23.5-35.8)
[2017-11-14 05:33] LABS: HEMATOCRIT 21.7 % (37.9-51.0); MEAN CORPUSCULAR HEMOGLOBIN 28.2 pg (27.0-33.4); MEAN CORPUSCULAR HGB CONC 33.4 g/dL (32.0-36.0); MEAN CORPUSCULAR VOLUME 85 fl (80-97); PLATELET COUNT 304 10^3/uL (150-450); RED BLOOD COUNT 2.57 10^6/uL (4.35-5.55); RED CELL DISTRIBUTION WIDTH 14.4 % (11.5-14.0); WHITE BLOOD COUNT 14.3 10^3/uL (4.0-10.5)
[2017-11-14 05:39] LABS: ANION GAP 9 (5-19); BLOOD UREA NITROGEN 8 mg/dL (7-20); CALCIUM 7.4 mg/dL (8.4-10.2); CARBON DIOXIDE 23 mmol/L (22-30); CHLORIDE 112 mmol/L (98-107); GLUCOSE 86 mg/dL (75-110); POTASSIUM 3.5 mmol/L (3.6-5.0)
[2017-11-14 05:54] LABS: HEMOGLOBIN 7.3 g/dL (13.5-17.0)
[2017-11-14] MEDS: CLONAZEPAM 1 MG TABLET PO SCH ×3 (06:22→22:14)
[2017-11-14 06:32] LABS: ABSOLUTE LYMPHOCYTES# (MANUAL) 2.1 10^3/uL (0.5-4.7); ABSOLUTE NEUTROPHILS# (MANUAL) 11.2 10^3/uL (1.7-8.2); BAND NEUTROPHILS % (MANUAL) 2 % (3-5); BASOPHILS % (MANUAL) 0 % (0-2); EOSINOPHILS % (MANUAL) 0 % (0-6); LYMPHOCYTES % (MANUAL) 15 % (13-45); METAMYELOCYTES % (MANUAL) 2 % (0); MONOCYTES % (MANUAL) 7 % (3-13); SEGMENTED NEUTROPHILS % (MAN) 74 % (42-78); TOTAL CELLS COUNTED 100
[2017-11-14 06:36] LABS: ANISOCYTOSIS 1+; POLYCHROMASIA SLIGHT
[2017-11-14 06:37] LABS: HYPOCHROMASIA 2+; OVALOCYTES SLIGHT; PLATELET COMMENT ADEQUATE
[2017-11-14] MEDS: DULOXETINE HCL 30 MG CAPSULE.DR PO SCH ×2 (09:28→22:14)
[2017-11-14] MEDS: BENZTROPINE MESYLATE 1 MG TABLET PO SCH ×2 (09:28→17:31)
[2017-11-14] MEDS: TOPIRAMATE 100 MG TABLET PO SCH ×2 (09:28→22:13)
[2017-11-14] MEDS: FAMOTIDINE INJ/PF 20 MG/2 ML SDV IV SCH ×2 (09:29→22:13)
[2017-11-14] MEDS: RISPERIDONE 1 MG TABLET PO SCH ×2 (09:35→22:14)
[2017-11-14] MEDS: TRAMADOL HCL 50 MG TABLET PO PRN ×2 (10:16→17:31)
--- NOTE | 2017-11-14 12:00 | PDOC PROGRESS REPORT ---
Subjective Progress Note for:: 11/14/17 Subjective:: The patient is awake and alert this morning. He complains of a little pain at surgical site, but overall is feeling much better. The patient's father is at bedside. He is concerned about the drop in hemoglobin from yesterday. Reason For Visit: SEPTIC SHOCK Physical Exam Vital Signs: Temp Pulse Resp BP Pulse Ox 98.6 F 96 20 106/55 L 98 11/14/17 07:28 11/14/17 07:28 11/14/17 07:28 11/14/17 07:28 11/14/17 07:28 Intake & Output 11/13/17 11/14/17 11/15/17 06:59 06:59 06:59 Intake Total 1283 3185 Output Total 1685 Balance -402 3185 Weight 124.3 kg 125.3 kg General appearance: PRESENT: no acute distress, cooperative, morbidly obese Respiratory exam: PRESENT: other - No increased work of breathing. No wheezes, rales, or rhonchi. No tactile fremitus. Cardiovascular exam: PRESENT: RRR. ABSENT: gallop, rubs, systolic murmur Pulses: PRESENT: normal femoral pulses, normal dorsalis pedis pul GI/Abdominal exam: PRESENT: normal bowel sounds, soft, tenderness - Over wound site.. ABSENT: hernia, mass, organolmegaly Neurological exam: PRESENT: alert, altered, awake, oriented to person, oriented to place, oriented to time, oriented to situation Psychiatric exam: PRESENT: appropriate affect, normal mood Skin exam: PRESENT: dry, intact, warm Results Laboratory Results: 11/14/17 04:57 11/14/17 04:57 11/14/17 11/14/17 04:57 04:57 WBC 14.3 H RBC 2.57 L Hgb 7.3 L Hct 21.7 L MCV 85 MCH 28.2 MCHC 33.4 RDW 14.4 H Plt Count 304 Seg Neutrophils % Not Reportable Lymphocytes % Not Reportable Monocytes % Not Reportable Eosinophils % Not Reportable Basophils % Not Reportable Absolute Neutrophils Not Reportable Absolute Lymphocytes Not Reportable Absolute Monocytes Not Reportable Absolute Eosinophils Not Reportable Absolute Basophils Not Reportable Sodium 144.0 Potassium 3.5 L Chloride 112 H Carbon Dioxide 23 Anion Gap 9 BUN 8 Creatinine 0.68 Est GFR ( Amer) > 60 Est GFR (Non-Af Amer) > 60 Glucose 86 Calcium 7.4 L Impressions: Abdomen Ultrasound 11/08/17 05:00 IMPRESSION: Cholelithiasis with borderline gallbladder wall thickening and positive ultrasonographic Dennis's sign. Further evaluation with HIDA scan may be beneficial. Abdomen/Pelvis CT 11/08/17 08:13 IMPRESSION: Stones in the gallbladder with pericholecystic inflammatory change worrisome for acute cholecystitis. Findings discussed with patient's attending surgeon Chest X-Ray 11/12/17 06:00 IMPRESSION: No focal infiltrates. Assessment & Plan - Diagnosis (1) Acute kidney injury Is this a current diagnosis for this admission?: Yes Plan: IV fluids, avoid nephrotoxic substances, and monitor electrolytes. Resolved. (2) Autism Is this a current diagnosis for this admission?: Yes Plan: Continue home medications. As needed doses of ativan and haldol will be available on a prn basis Stable. (3) Cholelithiasis Qualifiers: Cholelithiasis location: gallbladder Cholecystitis presence: with cholecystitis Cholecystitis acuity: acute Biliary obstruction: with biliary obstruction Qualified Code(s): K80.01 - Calculus of gallbladder with acute cholecystitis with obstruction Is this a current diagnosis for this admission?: Yes Plan: Status post laparoscopic cholecystectomy and ERCP. The patient tolerated the procedure well. (4) Elevated LFTs Is this a current diagnosis for this admission?: Yes Plan: Bilirubin trending up. Will check and LDH and haptoglobin. (5) History of endoscopic retrograde cholangiopancreatography Is this a current diagnosis for this admission?: Yes Plan: Elevation of LFT's resolving, although bilirubin is trending up. (6) Obesity Qualifiers: Obesity type: due to excess calories Body mass index: BMI 38.0-38.9 Is this a current diagnosis for this admission?: Yes Plan: Weight loss counseling should be performed prior to discharge. (7) Respiratory failure Qualifiers: Chronicity: acute Is this a current diagnosis for this admission?: Yes Plan: Resolved (8) Schizophrenia Is this a current diagnosis for this admission?: Yes Plan: Continue home medications. Stable (9) Severe sepsis Is this a current diagnosis for this admission?: Yes Plan: Resolved. (10) Sinus tachycardia Is this a current diagnosis for this admission?: Yes Plan: Resolved. - Time Time Spent with patient: 35 or more minutes Medications reviewed and adjusted accordingly: Yes Anticipated discharge: Home
[2017-11-14] MEDS: ACETAMINOPHEN 325 MG TABLET PO PRN (14:02)
[2017-11-14] MEDS: NORMAL SALINE 100 ML with PANTOPRAZOLE SODIUM 80 MG IV PRN ×2 (14:04)
[2017-11-14 17:18] LABS: MEAN CORPUSCULAR HEMOGLOBIN 28.1 pg (27.0-33.4); MEAN CORPUSCULAR HGB CONC 33.1 g/dL (32.0-36.0); MEAN CORPUSCULAR VOLUME 85 fl (80-97); PLATELET COUNT 327 10^3/uL (150-450); RED BLOOD COUNT 2.59 10^6/uL (4.35-5.55); RED CELL DISTRIBUTION WIDTH 14.7 % (11.5-14.0); WHITE BLOOD COUNT 11.7 10^3/uL (4.0-10.5)
--- NOTE | 2017-11-14 17:28 | PDOC PROGRESS REPORT ---
Subjective Reason For Visit: SEPTIC SHOCK Patient doing better; had bleeding episode last night requiring mechanical control from subcutaneous tissue. No further bleeding overnight; dressing not removed today from wound bed; no further hematemesis or blood per rectum. Tolerating clear liquids. Physical Exam Vital Signs: Temp Pulse Resp BP Pulse Ox 98.0 F 100 20 110/61 94 11/14/17 15:28 11/14/17 15:28 11/14/17 15:28 11/14/17 15:28 11/14/17 15:28 Intake & Output 11/13/17 11/14/17 11/15/17 06:59 06:59 06:59 Intake Total 1283 3185 968 Output Total 1685 Balance -402 3185 968 Weight 124.3 kg 125.3 kg General appearance: PRESENT: no acute distress GI/Abdominal exam: PRESENT: other - Abdomen soft nontender; right upper quadrant subcostal incision packing not removed Results Laboratory Results: 11/14/17 04:57 11/14/17 11/14/17 04:57 04:57 WBC 14.3 H RBC 2.57 L Hgb 7.3 L Hct 21.7 L MCV 85 MCH 28.2 MCHC 33.4 RDW 14.4 H Plt Count 304 Seg Neutrophils % Not Reportable Lymphocytes % Not Reportable Monocytes % Not Reportable Eosinophils % Not Reportable Basophils % Not Reportable Absolute Neutrophils Not Reportable Absolute Lymphocytes Not Reportable Absolute Monocytes Not Reportable Absolute Eosinophils Not Reportable Absolute Basophils Not Reportable Sodium 144.0 Potassium 3.5 L Chloride 112 H Carbon Dioxide 23 Anion Gap 9 BUN 8 Creatinine 0.68 Est GFR ( Amer) > 60 Est GFR (Non-Af Amer) > 60 Glucose 86 Calcium 7.4 L Impressions: Abdomen Ultrasound 11/08/17 05:00 IMPRESSION: Cholelithiasis with borderline gallbladder wall thickening and positive ultrasonographic Dennis's sign. Further evaluation with HIDA scan may be beneficial. Abdomen/Pelvis CT 11/08/17 08:13 IMPRESSION: Stones in the gallbladder with pericholecystic inflammatory change worrisome for acute cholecystitis. Findings discussed with patient's attending surgeon Chest X-Ray 11/12/17 06:00 IMPRESSION: No focal infiltrates. Assessment & Plan - Diagnosis (1) Septic shock Is this a current diagnosis for this admission?: Yes Plan: Patient now 6 day status post laparoscopic conversion to open cholecystectomy; soft tissue superficial wound infection opened and drained yesterday bedside complicated by bleeding requiring mechanical control at bedside last night; suspect bleeding responsible for drop in hemoglobin. No further GI bleeding. Patient remains on proton pump inhibitor Recommendations: 1. Advance diet as tolerated 2. Plan ingestion change in the morning. 3. Hopefully can discontinue IV antibiotics tomorrow; concerned about the risk of superinfection, C. difficile, etc. (2) Cholelithiasis Qualifiers: Cholelithiasis location: gallbladder Cholecystitis presence: with cholecystitis Cholecystitis acuity: acute Biliary obstruction: with biliary obstruction Qualified Code(s): K80.01 - Calculus of gallbladder with acute cholecystitis with obstruction Is this a current diagnosis for this admission?: Yes (3) Elevated LFTs Is this a current diagnosis for this admission?: Yes (4) Obesity Qualifiers: Obesity type: due to excess calories Body mass index: BMI 38.0-38.9 Is this a current diagnosis for this admission?: Yes (5) Autism Is this a current diagnosis for this admission?: Yes (6) Schizophrenia Is this a current diagnosis for this admission?: Yes (7) History of endoscopic retrograde cholangiopancreatography Is this a current diagnosis for this admission?: Yes
[2017-11-14 17:46] LABS: EOSINOPHILS % (MANUAL) 0 % (0-6)
[2017-11-14 17:48] LABS: ABSOLUTE MONOCYTES # (MANUAL) 0.7 10^3/uL (0.1-1.4); ABSOLUTE NEUTROPHILS# (MANUAL) 8.9 10^3/uL (1.7-8.2); BAND NEUTROPHILS % (MANUAL) 5 % (3-5); BASOPHILS % (MANUAL) 1 % (0-2); LYMPHOCYTES % (MANUAL) 17 % (13-45); MONOCYTES % (MANUAL) 6 % (3-13); SEGMENTED NEUTROPHILS % (MAN) 66 % (42-78); TOTAL CELLS COUNTED 100
[2017-11-14 18:01] LABS: ANISOCYTOSIS 1+; OVALOCYTES SLIGHT; PLATELET COMMENT ADEQUATE; POIKILOCYTOSIS SLIGHT; POLYCHROMASIA SLIGHT; TEAR DROP CELLS SLIGHT; TOXIC GRANULATION SLIGHT
[2017-11-14 18:03] LABS: HEMOGLOBIN 7.3 g/dL (13.5-17.0)
[2017-11-14 22:11] LABS: HEMATOCRIT 22.1 % (37.9-51.0); MEAN CORPUSCULAR HEMOGLOBIN 28.9 pg (27.0-33.4); MEAN CORPUSCULAR HGB CONC 33.6 g/dL (32.0-36.0); MEAN CORPUSCULAR VOLUME 86 fl (80-97); PLATELET COUNT 335 10^3/uL (150-450); RED BLOOD COUNT 2.57 10^6/uL (4.35-5.55); RED CELL DISTRIBUTION WIDTH 14.8 % (11.5-14.0); WHITE BLOOD COUNT 10.5 10^3/uL (4.0-10.5)
[2017-11-14 22:18] LABS: HEMOGLOBIN 7.4 g/dL (13.5-17.0)
[2017-11-14 22:37] LABS: ABSOLUTE LYMPHOCYTES# (MANUAL) 1.7 10^3/uL (0.5-4.7); ABSOLUTE MONOCYTES # (MANUAL) 1.5 10^3/uL (0.1-1.4); ABSOLUTE NEUTROPHILS# (MANUAL) 7.2 10^3/uL (1.7-8.2); BAND NEUTROPHILS % (MANUAL) 2 % (3-5); BASOPHILS % (MANUAL) 0 % (0-2); EOSINOPHILS % (MANUAL) 1 % (0-6); LYMPHOCYTES % (MANUAL) 16 % (13-45); METAMYELOCYTES % (MANUAL) 2 % (0); MONOCYTES % (MANUAL) 14 % (3-13); MYELOCYTES % (MANUAL) 1 % (0); SEGMENTED NEUTROPHILS % (MAN) 64 % (42-78); TOTAL CELLS COUNTED 100
[2017-11-14 22:41] LABS: ANISOCYTOSIS 1+; HYPOCHROMASIA 2+; OVALOCYTES 1+; POLYCHROMASIA SLIGHT
[2017-11-14 22:42] LABS: PLATELET COMMENT ADEQUATE
[2017-11-15] MEDS: NORMAL SALINE 100 ML with PANTOPRAZOLE SODIUM 80 MG IV PRN ×4 (00:18→21:32)
[2017-11-15] MEDS: AMPICILLIN SODIUM 500 MG in NORMAL SALINE 25 ML IV SCH ×4 (03:03→21:32)
[2017-11-15] MEDS: METRONIDAZOLE 500 MG/NS RTU 500 MG/100 ML RTUPB IV SCH ×4 (04:24→22:58)
[2017-11-15 04:32] LABS: HEMATOCRIT 21.6 % (37.9-51.0); MEAN CORPUSCULAR HEMOGLOBIN 28.7 pg (27.0-33.4); MEAN CORPUSCULAR HGB CONC 33.7 g/dL (32.0-36.0); MEAN CORPUSCULAR VOLUME 85 fl (80-97); PLATELET COUNT 311 10^3/uL (150-450); RED BLOOD COUNT 2.54 10^6/uL (4.35-5.55); RED CELL DISTRIBUTION WIDTH 14.5 % (11.5-14.0); WHITE BLOOD COUNT 9.2 10^3/uL (4.0-10.5)
[2017-11-15 04:40] LABS: HEMOGLOBIN 7.3 g/dL (13.5-17.0)
[2017-11-15 04:56] LABS: ABSOLUTE LYMPHOCYTES# (MANUAL) 1.9 10^3/uL (0.5-4.7); ABSOLUTE MONOCYTES # (MANUAL) 0.8 10^3/uL (0.1-1.4); ABSOLUTE NEUTROPHILS# (MANUAL) 6.2 10^3/uL (1.7-8.2); BAND NEUTROPHILS % (MANUAL) 1 % (3-5); BASOPHILS % (MANUAL) 0 % (0-2); EOSINOPHILS % (MANUAL) 3 % (0-6); LYMPHOCYTES % (MANUAL) 20 % (13-45); METAMYELOCYTES % (MANUAL) 1 % (0); MONOCYTES % (MANUAL) 9 % (3-13); SEGMENTED NEUTROPHILS % (MAN) 65 % (42-78); TOTAL CELLS COUNTED 100
[2017-11-15 04:58] LABS: ANISOCYTOSIS 1+
[2017-11-15 04:59] LABS: HYPOCHROMASIA 2+
[2017-11-15 05:02] LABS: PLATELET COMMENT ADEQUATE
[2017-11-15] MEDS: CLONAZEPAM 1 MG TABLET PO SCH ×3 (06:30→22:58)
[2017-11-15] MEDS: FAMOTIDINE INJ/PF 20 MG/2 ML SDV IV SCH ×2 (09:36→22:57)
[2017-11-15] MEDS: DULOXETINE HCL 30 MG CAPSULE.DR PO SCH ×2 (09:36→22:57)
[2017-11-15] MEDS: RISPERIDONE 1 MG TABLET PO SCH ×2 (09:39→22:57)
[2017-11-15] MEDS: TOPIRAMATE 100 MG TABLET PO SCH ×2 (09:40→22:57)
[2017-11-15] MEDS: BENZTROPINE MESYLATE 1 MG TABLET PO SCH ×2 (09:40→17:39)
[2017-11-15 12:20] LABS: METAMYELOCYTES % (MANUAL) 3 % (0); MYELOCYTES % (MANUAL) 1 % (0); PROMYELOCYTES % (MANUAL) 1 % (0)
[2017-11-15] MEDS: TRAMADOL HCL 50 MG TABLET PO PRN (12:47)
[2017-11-15] MEDS ORDERED: POTASSIUM CHLORIDE 20 MEQ/15 ML UDCUP PO ONE (13:00)
[2017-11-15] MEDS ORDERED: POTASSIUM CHLORIDE 10 MEQ CAPSULE.ER PO ONE (13:00)
[2017-11-15 14:03] LABS: HEMATOCRIT 25.3 % (37.9-51.0); HEMOGLOBIN 8.4 g/dL (13.5-17.0); MEAN CORPUSCULAR HEMOGLOBIN 28.8 pg (27.0-33.4); MEAN CORPUSCULAR HGB CONC 33.4 g/dL (32.0-36.0); MEAN CORPUSCULAR VOLUME 86 fl (80-97); PLATELET COUNT 404 10^3/uL (150-450); RED BLOOD COUNT 2.93 10^6/uL (4.35-5.55); RED CELL DISTRIBUTION WIDTH 14.8 % (11.5-14.0); WHITE BLOOD COUNT 8.9 10^3/uL (4.0-10.5)
--- NOTE | 2017-11-15 14:39 | PDOC PROGRESS REPORT ---
Subjective Progress Note for:: 11/15/17 Subjective:: The patient is resting comfortably in bed. He appears pale. Nursing tells me that the patient's heart rate increases to 140's with ambulation to the bathroom. The patient himself has no new complaints. Reason For Visit: SEPTIC SHOCK Physical Exam Vital Signs: Temp Pulse Resp BP Pulse Ox 98.4 F 109 H 15 97/53 L 96 11/15/17 11:27 11/15/17 11:27 11/15/17 11:27 11/15/17 11:27 11/15/17 11:27 Intake & Output 11/14/17 11/15/17 11/16/17 06:59 06:59 06:59 Intake Total 3185 1412 Balance 3185 1412 Weight 125.3 kg 125 kg General appearance: PRESENT: no acute distress, cooperative, obese Respiratory exam: PRESENT: other - No increased work of breathing.. ABSENT: rales, rhonchi, wheezes Cardiovascular exam: PRESENT: RRR, other - No lateral PMI. No thrills.. ABSENT : gallop, rubs, systolic murmur Pulses: PRESENT: normal femoral pulses, normal dorsalis pedis pul GI/Abdominal exam: PRESENT: normal bowel sounds, soft, other - Obese. ABSENT: hernia, mass, tenderness Extremities exam: PRESENT: full ROM. ABSENT: calf tenderness, pedal edema, +1 edema Neurological exam: PRESENT: alert, altered, awake, oriented to person, oriented to place, oriented to time, CN II-XII grossly intact. ABSENT: motor sensory deficit Psychiatric exam: PRESENT: appropriate affect, normal mood Skin exam: PRESENT: dry, intact, warm Results Laboratory Results: 11/15/17 04:15 11/14/17 04:57 11/14/17 11/14/17 11/15/17 16:47 22:01 04:15 WBC 11.7 H 10.5 9.2 RBC 2.59 L 2.57 L 2.54 L Hgb 7.3 L 7.4 L 7.3 L Hct 22.0 L 22.1 L 21.6 L MCV 85 86 85 MCH 28.1 28.9 28.7 MCHC 33.1 33.6 33.7 RDW 14.7 H 14.8 H 14.5 H Plt Count 327 335 311 Seg Neutrophils % Not Reportable Not Reportable Not Reportable Lymphocytes % Not Reportable Not Reportable Not Reportable Monocytes % Not Reportable Not Reportable Not Reportable Eosinophils % Not Reportable Not Reportable Not Reportable Basophils % Not Reportable Not Reportable Not Reportable Absolute Neutrophils Not Reportable Not Reportable Not Reportable Absolute Lymphocytes Not Reportable Not Reportable Not Reportable Absolute Monocytes Not Reportable Not Reportable Not Reportable Absolute Eosinophils Not Reportable Not Reportable Not Reportable Absolute Basophils Not Reportable Not Reportable Not Reportable Impressions: Abdomen Ultrasound 11/08/17 05:00 IMPRESSION: Cholelithiasis with borderline gallbladder wall thickening and positive ultrasonographic Dennis's sign. Further evaluation with HIDA scan may be beneficial. Abdomen/Pelvis CT 11/08/17 08:13 IMPRESSION: Stones in the gallbladder with pericholecystic inflammatory change worrisome for acute cholecystitis. Findings discussed with patient's attending surgeon Chest X-Ray 11/12/17 06:00 IMPRESSION: No focal infiltrates. Assessment & Plan - Diagnosis (1) Acute kidney injury Is this a current diagnosis for this admission?: Yes Plan: IV fluids, avoid nephrotoxic substances, and monitor electrolytes. Resolved. (2) Autism Is this a current diagnosis for this admission?: Yes Plan: Continue home medications. As needed doses of ativan and haldol will be available on a prn basis Stable. (3) Cholelithiasis Qualifiers: Cholelithiasis location: gallbladder Cholecystitis presence: with cholecystitis Cholecystitis acuity: acute Biliary obstruction: with biliary obstruction Qualified Code(s): K80.01 - Calculus of gallbladder with acute cholecystitis with obstruction Is this a current diagnosis for this admission?: Yes Plan: Status post laparoscopic cholecystectomy and ERCP. The patient tolerated the procedure well. (4) Elevated LFTs Is this a current diagnosis for this admission?: Yes Plan: Bilirubin trending up. Will check and LDH and haptoglobin. (5) History of endoscopic retrograde cholangiopancreatography Is this a current diagnosis for this admission?: Yes Plan: Elevation of LFT's resolving, although bilirubin is trending up. (6) Obesity Qualifiers: Obesity type: due to excess calories Body mass index: BMI 38.0-38.9 Is this a current diagnosis for this admission?: Yes Plan: Weight loss counseling should be performed prior to discharge. (7) Respiratory failure Qualifiers: Chronicity: acute Is this a current diagnosis for this admission?: Yes Plan: Resolved (8) Schizophrenia Is this a current diagnosis for this admission?: Yes Plan: Continue home medications. Stable (9) Severe sepsis Is this a current diagnosis for this admission?: Yes Plan: Resolved. (10) Sinus tachycardia Is this a current diagnosis for this admission?: Yes Plan: Heart rate again elevated after adjustment of pain medications yesterday and increase in IV fluids. I appreciate Dr. Anne's assistance. Hemoglobin has dropped to 7.3. Transfusion as per primary team. May need to reconsider EGD to rule out GI bleed. - Time Time Spent with patient: 35 or more minutes Medications reviewed and adjusted accordingly: Yes Anticipated discharge: Home
[2017-11-15] MEDS: KETOROLAC TROMETHAMINE INJ/PF 30 MG/1 ML SDV IV PRN (16:35)
--- NOTE | 2017-11-15 18:44 | PDOC PROGRESS REPORT ---
Subjective Progress Note for:: 11/15/17 Subjective:: mild pains ruq and tenderness Reason For Visit: SEPTIC SHOCK Physical Exam Vital Signs: Temp Pulse Resp BP Pulse Ox 97.6 F 101 H 16 116/51 L 99 11/15/17 15:48 11/15/17 15:48 11/15/17 15:48 11/15/17 15:48 11/15/17 15:48 Intake & Output 11/14/17 11/15/17 11/16/17 06:59 06:59 06:59 Intake Total 3185 1412 1065 Balance 3185 1412 1065 Weight 125.3 kg 125 kg Exam: Abdominal wound is relatively clean, no bleeding. Has good granulation tissue but not ready for closure. Results Laboratory Results: 11/15/17 13:30 11/14/17 04:57 11/14/17 11/15/17 11/15/17 22:01 04:15 13:30 WBC 10.5 9.2 RBC 2.57 L 2.54 L Hgb 7.4 L 7.3 L Hct 22.1 L 21.6 L MCV 86 85 MCH 28.9 28.7 MCHC 33.6 33.7 RDW 14.8 H 14.5 H Plt Count 335 311 Seg Neutrophils % Not Reportable Not Reportable Lymphocytes % Not Reportable Not Reportable Monocytes % Not Reportable Not Reportable Eosinophils % Not Reportable Not Reportable Basophils % Not Reportable Not Reportable Absolute Neutrophils Not Reportable Not Reportable Absolute Lymphocytes Not Reportable Not Reportable Absolute Monocytes Not Reportable Not Reportable Absolute Eosinophils Not Reportable Not Reportable Absolute Basophils Not Reportable Not Reportable Stool Occult Blood Blood Type O POSITIVE Antibody Screen NEGATIVE 11/15/17 11/15/17 13:30 14:10 WBC 8.9 RBC 2.93 L Hgb 8.4 L Hct 25.3 L MCV 86 MCH 28.8 MCHC 33.4 RDW 14.8 H Plt Count 404 Seg Neutrophils % Lymphocytes % Monocytes % Eosinophils % Basophils % Absolute Neutrophils Absolute Lymphocytes Absolute Monocytes Absolute Eosinophils Absolute Basophils Stool Occult Blood NEGATIVE Blood Type Antibody Screen Impressions: Abdomen Ultrasound 11/08/17 05:00 IMPRESSION: Cholelithiasis with borderline gallbladder wall thickening and positive ultrasonographic Dennis's sign. Further evaluation with HIDA scan may be beneficial. Abdomen/Pelvis CT 11/08/17 08:13 IMPRESSION: Stones in the gallbladder with pericholecystic inflammatory change worrisome for acute cholecystitis. Findings discussed with patient's attending surgeon Chest X-Ray 11/12/17 06:00 IMPRESSION: No focal infiltrates. Assessment & Plan - Time Time Spent with patient: 15-24 minutes - Plan Summary Plan Summary: Wound VAC applied at the incision site D/W screening specialist re; tachycardia who suggested transfusing patient A unit of blood ordered. Continue antibiotics another 24 hrs.
[2017-11-16] MEDS: TRAMADOL HCL 50 MG TABLET PO PRN (01:17)
[2017-11-16] MEDS: AMPICILLIN SODIUM 500 MG in NORMAL SALINE 25 ML IV SCH ×3 (04:04→14:39)
[2017-11-16] MEDS: METRONIDAZOLE 500 MG/NS RTU 500 MG/100 ML RTUPB IV SCH ×4 (04:04→21:27)
[2017-11-16 06:52] LABS: HEMATOCRIT 24.7 % (37.9-51.0); HEMOGLOBIN 8.3 g/dL (13.5-17.0); MEAN CORPUSCULAR HEMOGLOBIN 28.6 pg (27.0-33.4); MEAN CORPUSCULAR HGB CONC 33.8 g/dL (32.0-36.0); MEAN CORPUSCULAR VOLUME 85 fl (80-97); PLATELET COUNT 361 10^3/uL (150-450); RED BLOOD COUNT 2.91 10^6/uL (4.35-5.55); RED CELL DISTRIBUTION WIDTH 14.7 % (11.5-14.0); WHITE BLOOD COUNT 7.4 10^3/uL (4.0-10.5)
[2017-11-16] MEDS: CLONAZEPAM 1 MG TABLET PO SCH ×3 (06:52→21:28)
[2017-11-16 07:06] LABS: ALANINE AMINOTRANSFERASE 55 U/L (21-72); ALBUMIN 2.3 g/dL (3.5-5.0); ALKALINE PHOSPHATASE 71 U/L (38-126); ANION GAP 8 (5-19); ASPARTATE AMINO TRANSFERASE 39 U/L (17-59); BILIRUBIN,DIRECT 0.4 mg/dL (0.0-0.4); BILIRUBIN,TOTAL 0.6 mg/dL (0.2-1.3); BLOOD UREA NITROGEN 4 mg/dL (7-20); CALCIUM 7.8 mg/dL (8.4-10.2); CARBON DIOXIDE 20 mmol/L (22-30); CHLORIDE 117 mmol/L (98-107); GLUCOSE 95 mg/dL (75-110); POTASSIUM 3.8 mmol/L (3.6-5.0); SODIUM 145.4 mmol/L (137-145)
[2017-11-16 07:30] LABS: ABSOLUTE LYMPHOCYTES# (MANUAL) 1.9 10^3/uL (0.5-4.7); ABSOLUTE MONOCYTES # (MANUAL) 0.7 10^3/uL (0.1-1.4); ABSOLUTE NEUTROPHILS# (MANUAL) 4.8 10^3/uL (1.7-8.2); BAND NEUTROPHILS % (MANUAL) 2 % (3-5); BASOPHILS % (MANUAL) 0 % (0-2); EOSINOPHILS % (MANUAL) 1 % (0-6); LYMPHOCYTES % (MANUAL) 25 % (13-45); METAMYELOCYTES % (MANUAL) 1 % (0); MONOCYTES % (MANUAL) 9 % (3-13); SEGMENTED NEUTROPHILS % (MAN) 62 % (42-78); TOTAL CELLS COUNTED 100
[2017-11-16 07:31] LABS: ANISOCYTOSIS SLIGHT; OVALOCYTES SLIGHT; PLATELET COMMENT ADEQUATE; POIKILOCYTOSIS SLIGHT; POLYCHROMASIA 1+
[2017-11-16] MEDS: NORMAL SALINE 100 ML with PANTOPRAZOLE SODIUM 80 MG IV PRN ×2 (08:21)
[2017-11-16] MEDS: DULOXETINE HCL 30 MG CAPSULE.DR PO SCH ×2 (09:21→21:28)
[2017-11-16] MEDS: FAMOTIDINE INJ/PF 20 MG/2 ML SDV IV SCH ×2 (09:21→21:30)
[2017-11-16] MEDS: TOPIRAMATE 100 MG TABLET PO SCH ×2 (09:22→21:28)
[2017-11-16] MEDS: RISPERIDONE 1 MG TABLET PO SCH ×2 (09:22→21:28)
[2017-11-16] MEDS: BENZTROPINE MESYLATE 1 MG TABLET PO SCH ×2 (09:22→18:48)
[2017-11-16 10:49] LABS: PATH REVIEW PATHOLOGIST REVIEWED
--- NOTE | 2017-11-16 13:01 | PDOC PROGRESS REPORT ---
Subjective Progress Note for:: 11/16/17 Subjective:: The patient is resting comfortably in bed. He appears pale. Nursing tells me that the patient's heart rate increases to 140's with ambulation to the bathroom. The patient himself has no new complaints. Physical Exam Vital Signs: Temp Pulse Resp BP Pulse Ox 97.7 F 95 19 106/57 L 95 11/16/17 07:23 11/16/17 07:23 11/16/17 07:23 11/16/17 07:23 11/16/17 07:23 Intake & Output 11/15/17 11/16/17 11/17/17 06:59 06:59 06:59 Intake Total 1412 2325 Output Total 2200 Balance 1412 125 Weight 125 kg 124.4 kg General appearance: PRESENT: no acute distress, cooperative, morbidly obese, other Respiratory exam: ABSENT: rales, rhonchi, wheezes Cardiovascular exam: PRESENT: RRR. ABSENT: gallop, rubs, systolic murmur Pulses: PRESENT: normal femoral pulses, normal dorsalis pedis pul GI/Abdominal exam: PRESENT: normal bowel sounds, soft. ABSENT: hernia, mass, organolmegaly, tenderness Extremities exam: PRESENT: full ROM. ABSENT: clubbing, tenderness, +1 edema Neurological exam: PRESENT: alert, awake, oriented to person, oriented to place , oriented to time, oriented to situation, reflexes normal, CN II-XII grossly intact. ABSENT: motor sensory deficit Psychiatric exam: PRESENT: appropriate affect, normal mood Skin exam: PRESENT: dry, intact, warm Results Laboratory Results: 11/16/17 06:40 11/16/17 06:40 11/15/17 11/15/17 11/15/17 13:30 13:30 14:10 WBC 8.9 RBC 2.93 L Hgb 8.4 L Hct 25.3 L MCV 86 MCH 28.8 MCHC 33.4 RDW 14.8 H Plt Count 404 Seg Neutrophils % Lymphocytes % Monocytes % Eosinophils % Basophils % Absolute Neutrophils Absolute Lymphocytes Absolute Monocytes Absolute Eosinophils Absolute Basophils Sodium Potassium Chloride Carbon Dioxide Anion Gap BUN Creatinine Est GFR ( Amer) Est GFR (Non-Af Amer) Glucose Calcium Total Bilirubin AST ALT Alkaline Phosphatase Total Protein Albumin Stool Occult Blood NEGATIVE Blood Type O POSITIVE Antibody Screen NEGATIVE 11/16/17 11/16/17 06:40 06:40 WBC 7.4 RBC 2.91 L Hgb 8.3 L Hct 24.7 L MCV 85 MCH 28.6 MCHC 33.8 RDW 14.7 H Plt Count 361 Seg Neutrophils % Not Reportable Lymphocytes % Not Reportable Monocytes % Not Reportable Eosinophils % Not Reportable Basophils % Not Reportable Absolute Neutrophils Not Reportable Absolute Lymphocytes Not Reportable Absolute Monocytes Not Reportable Absolute Eosinophils Not Reportable Absolute Basophils Not Reportable Sodium 145.4 H Potassium 3.8 Chloride 117 H Carbon Dioxide 20 L Anion Gap 8 BUN 4 L Creatinine 0.70 Est GFR ( Amer) > 60 Est GFR (Non-Af Amer) > 60 Glucose 95 Calcium 7.8 L Total Bilirubin 0.6 AST 39 ALT 55 Alkaline Phosphatase 71 Total Protein 5.0 L Albumin 2.3 L Stool Occult Blood Blood Type Antibody Screen 11/13/17 12:13 Catheter Tip - Central Line Catheter Tip Culture - Final NO GROWTH 3 DAYS Impressions: Abdomen Ultrasound 11/08/17 05:00 IMPRESSION: Cholelithiasis with borderline gallbladder wall thickening and positive ultrasonographic Dennis's sign. Further evaluation with HIDA scan may be beneficial. Abdomen/Pelvis CT 11/08/17 08:13 IMPRESSION: Stones in the gallbladder with pericholecystic inflammatory change worrisome for acute cholecystitis. Findings discussed with patient's attending surgeon Chest X-Ray 11/12/17 06:00 IMPRESSION: No focal infiltrates. Assessment & Plan - Diagnosis (1) Acute kidney injury Is this a current diagnosis for this admission?: Yes Plan: IV fluids, avoid nephrotoxic substances, and monitor electrolytes. Resolved. (2) Autism Is this a current diagnosis for this admission?: Yes Plan: Continue home medications. As needed doses of ativan and haldol will be available on a prn basis Stable. (3) Cholelithiasis Qualifiers: Cholelithiasis location: gallbladder Cholecystitis presence: with cholecystitis Cholecystitis acuity: acute Biliary obstruction: with biliary obstruction Qualified Code(s): K80.01 - Calculus of gallbladder with acute cholecystitis with obstruction Is this a current diagnosis for this admission?: Yes Plan: Status post laparoscopic cholecystectomy and ERCP. The patient tolerated the procedure well. Drain left in place. (4) Elevated LFTs Is this a current diagnosis for this admission?: Yes Plan: Bilirubin trending up. LDH and haptoglobin are within normal limits. (5) History of endoscopic retrograde cholangiopancreatography Is this a current diagnosis for this admission?: Yes (6) Obesity Qualifiers: Obesity type: due to excess calories Body mass index: BMI 38.0-38.9 Is this a current diagnosis for this admission?: Yes Plan: Weight loss counseling should be performed prior to discharge. (7) Respiratory failure Qualifiers: Chronicity: acute Is this a current diagnosis for this admission?: Yes Plan: Resolved (8) Schizophrenia Is this a current diagnosis for this admission?: Yes Plan: Continue home medications. Stable (9) Severe sepsis Is this a current diagnosis for this admission?: Yes Plan: Resolved. (10) Sinus tachycardia Is this a current diagnosis for this admission?: Yes Plan: Resolved following transfusion - Time Time Spent with patient: 25-34 minutes Medications reviewed and adjusted accordingly: Yes Anticipated discharge: Home
[2017-11-16] MEDS: KETOROLAC TROMETHAMINE INJ/PF 30 MG/1 ML SDV IV PRN (14:39)
--- NOTE | 2017-11-16 15:24 | PDOC PROGRESS REPORT ---
Subjective Progress Note for:: 11/16/17 Subjective:: comfortable. No pains Reason For Visit: SEPTIC SHOCK Physical Exam Vital Signs: Temp Pulse Resp BP Pulse Ox 97.9 F 100 19 116/62 98 11/16/17 10:57 11/16/17 10:57 11/16/17 10:57 11/16/17 10:57 11/16/17 10:57 Intake & Output 11/15/17 11/16/17 11/17/17 06:59 06:59 06:59 Intake Total 1412 2325 Output Total 2200 Balance 1412 125 Weight 125 kg 124.4 kg Exam: wound vac in place. Abd soft non tender Results Laboratory Results: 11/16/17 06:40 11/16/17 06:40 11/15/17 11/16/17 11/16/17 13:30 06:40 06:40 WBC 7.4 RBC 2.91 L Hgb 8.3 L Hct 24.7 L MCV 85 MCH 28.6 MCHC 33.8 RDW 14.7 H Plt Count 361 Seg Neutrophils % Not Reportable Lymphocytes % Not Reportable Monocytes % Not Reportable Eosinophils % Not Reportable Basophils % Not Reportable Absolute Neutrophils Not Reportable Absolute Lymphocytes Not Reportable Absolute Monocytes Not Reportable Absolute Eosinophils Not Reportable Absolute Basophils Not Reportable Sodium 145.4 H Potassium 3.8 Chloride 117 H Carbon Dioxide 20 L Anion Gap 8 BUN 4 L Creatinine 0.70 Est GFR ( Amer) > 60 Est GFR (Non-Af Amer) > 60 Glucose 95 Calcium 7.8 L Total Bilirubin 0.6 AST 39 ALT 55 Alkaline Phosphatase 71 Total Protein 5.0 L Albumin 2.3 L Blood Type O POSITIVE Antibody Screen NEGATIVE 11/13/17 12:13 Catheter Tip - Central Line Catheter Tip Culture - Final NO GROWTH 3 DAYS Impressions: Abdomen Ultrasound 11/08/17 05:00 IMPRESSION: Cholelithiasis with borderline gallbladder wall thickening and positive ultrasonographic Dennis's sign. Further evaluation with HIDA scan may be beneficial. Abdomen/Pelvis CT 11/08/17 08:13 IMPRESSION: Stones in the gallbladder with pericholecystic inflammatory change worrisome for acute cholecystitis. Findings discussed with patient's attending surgeon Chest X-Ray 11/12/17 06:00 IMPRESSION: No focal infiltrates. Assessment & Plan - Time Time Spent with patient: 15-24 minutes - Plan Summary Plan Summary: Continue wound vac. Stop ampicillin and leave flagyl another 24 hrs. Continue to encourage po intake Repeat CBC and lytes in am. HB 8.3 after another(3rd) unit PRBCs NA and Cl elevated
[2017-11-17] MEDS: KETOROLAC TROMETHAMINE INJ/PF 30 MG/1 ML SDV IV PRN ×2 (02:57→16:14)
[2017-11-17] MEDS: METRONIDAZOLE 500 MG/NS RTU 500 MG/100 ML RTUPB IV SCH ×4 (03:55→21:23)
[2017-11-17] MEDS: CLONAZEPAM 1 MG TABLET PO SCH ×3 (05:58→21:53)
[2017-11-17] MEDS: MAG HYDROX/AL HYDROX/SIMETH SUSP 30 ML UDCUP PO PRN ×2 (06:34→21:23)
[2017-11-17 07:04] LABS: HEMATOCRIT 27.1 % (37.9-51.0); HEMOGLOBIN 9.2 g/dL (13.5-17.0); MEAN CORPUSCULAR HEMOGLOBIN 28.6 pg (27.0-33.4); MEAN CORPUSCULAR HGB CONC 33.8 g/dL (32.0-36.0); MEAN CORPUSCULAR VOLUME 85 fl (80-97); PLATELET COUNT 373 10^3/uL (150-450); RED CELL DISTRIBUTION WIDTH 14.3 % (11.5-14.0); WHITE BLOOD COUNT 8.5 10^3/uL (4.0-10.5)
[2017-11-17 07:19] LABS: ANION GAP 11 (5-19); BLOOD UREA NITROGEN 4 mg/dL (7-20); CALCIUM 8.1 mg/dL (8.4-10.2); CARBON DIOXIDE 21 mmol/L (22-30); CHLORIDE 112 mmol/L (98-107); GLUCOSE 100 mg/dL (75-110)
[2017-11-17 08:21] LABS: ABSOLUTE LYMPHOCYTES# (MANUAL) 1.4 10^3/uL (0.5-4.7); ABSOLUTE MONOCYTES # (MANUAL) 0.3 10^3/uL (0.1-1.4); ABSOLUTE NEUTROPHILS# (MANUAL) 6.6 10^3/uL (1.7-8.2); BASOPHILS % (MANUAL) 0 % (0-2); EOSINOPHILS % (MANUAL) 2 % (0-6); LYMPHOCYTES % (MANUAL) 17 % (13-45); MONOCYTES % (MANUAL) 3 % (3-13); SEGMENTED NEUTROPHILS % (MAN) 78 % (42-78); TOTAL CELLS COUNTED 100
[2017-11-17 08:22] LABS: HYPOCHROMASIA SLIGHT; PLATELET COMMENT ADEQUATE; POLYCHROMASIA 1+; TOXIC GRANULATION SLIGHT; TOXIC VACUOLATION PRESENT
[2017-11-17] MEDS: PROMETHAZINE HCL INJ 25 MG/1 ML VIAL IV PRN (10:27)
[2017-11-17] MEDS: FAMOTIDINE INJ/PF 20 MG/2 ML SDV IV SCH (10:27)
[2017-11-17] MEDS: RISPERIDONE 1 MG TABLET PO SCH ×2 (10:28→21:53)
[2017-11-17] MEDS: TOPIRAMATE 100 MG TABLET PO SCH ×2 (10:29→21:53)
[2017-11-17] MEDS: BENZTROPINE MESYLATE 1 MG TABLET PO SCH ×2 (10:29→17:32)
[2017-11-17] MEDS: DULOXETINE HCL 30 MG CAPSULE.DR PO SCH ×2 (10:30→21:53)
--- NOTE | 2017-11-17 11:51 | PDOC PROGRESS REPORT ---
Subjective Progress Note for:: 11/17/17 Subjective:: vomited this am Reason For Visit: SEPTIC SHOCK Physical Exam Vital Signs: Temp Pulse Resp BP Pulse Ox 97.8 F 100 17 131/70 H 99 11/17/17 07:37 11/17/17 07:37 11/17/17 07:37 11/17/17 07:37 11/17/17 07:37 Intake & Output 11/16/17 11/17/17 11/18/17 06:59 06:59 06:59 Intake Total 2325 2110 Output Total 2200 Balance 125 2110 Weight 124.4 kg 123.4 kg Exam: Wound vac in place. Abd is soft and non tender Results Laboratory Results: 11/17/17 05:27 11/17/17 05:27 11/17/17 11/17/17 05:27 05:27 WBC 8.5 RBC 3.20 L Hgb 9.2 L Hct 27.1 L MCV 85 MCH 28.6 MCHC 33.8 RDW 14.3 H Plt Count 373 Seg Neutrophils % Not Reportable Lymphocytes % Not Reportable Monocytes % Not Reportable Eosinophils % Not Reportable Basophils % Not Reportable Absolute Neutrophils Not Reportable Absolute Lymphocytes Not Reportable Absolute Monocytes Not Reportable Absolute Eosinophils Not Reportable Absolute Basophils Not Reportable Sodium 144.0 Potassium 4.0 Chloride 112 H Carbon Dioxide 21 L Anion Gap 11 BUN 4 L Creatinine 0.71 Est GFR ( Amer) > 60 Est GFR (Non-Af Amer) > 60 Glucose 100 Calcium 8.1 L 11/13/17 12:13 Catheter Tip - Central Line Catheter Tip Culture - Final NO GROWTH 3 DAYS Impressions: Abdomen Ultrasound 11/08/17 05:00 IMPRESSION: Cholelithiasis with borderline gallbladder wall thickening and positive ultrasonographic Dennis's sign. Further evaluation with HIDA scan may be beneficial. Abdomen/Pelvis CT 11/08/17 08:13 IMPRESSION: Stones in the gallbladder with pericholecystic inflammatory change worrisome for acute cholecystitis. Findings discussed with patient's attending surgeon Chest X-Ray 11/12/17 06:00 IMPRESSION: No focal infiltrates. Assessment & Plan - Time Time Spent with patient: 15-24 minutes - Plan Summary Plan Summary: Resume IV fluids Possible EGD tomorrow c/o Dr Armendariz D/jailyn Ferrera
--- NOTE | 2017-11-17 12:08 | PDOC PROGRESS REPORT ---
Subjective Progress Note for:: 11/17/17 Subjective:: Pt is sitting on the side of the bed heaving into the trash and crying. He is very upset that he is vomiting again. He also states that he just had a BM. Reason For Visit: SEPTIC SHOCK Physical Exam Vital Signs: Temp Pulse Resp BP Pulse Ox 97.8 F 100 17 131/70 H 99 11/17/17 07:37 11/17/17 07:37 11/17/17 07:37 11/17/17 07:37 11/17/17 07:37 Intake & Output 11/16/17 11/17/17 11/18/17 06:59 06:59 06:59 Intake Total 2325 2110 Output Total 2200 Balance 125 2110 Weight 124.4 kg 123.4 kg General appearance: PRESENT: mild distress, morbidly obese Respiratory exam: PRESENT: other - No increased work of breathing. No wheezes, rales, or rhonchi. No tactile fremitus. Results Laboratory Results: 11/17/17 05:27 11/17/17 05:27 11/17/17 11/17/17 05:27 05:27 WBC 8.5 RBC 3.20 L Hgb 9.2 L Hct 27.1 L MCV 85 MCH 28.6 MCHC 33.8 RDW 14.3 H Plt Count 373 Seg Neutrophils % Not Reportable Lymphocytes % Not Reportable Monocytes % Not Reportable Eosinophils % Not Reportable Basophils % Not Reportable Absolute Neutrophils Not Reportable Absolute Lymphocytes Not Reportable Absolute Monocytes Not Reportable Absolute Eosinophils Not Reportable Absolute Basophils Not Reportable Sodium 144.0 Potassium 4.0 Chloride 112 H Carbon Dioxide 21 L Anion Gap 11 BUN 4 L Creatinine 0.71 Est GFR ( Amer) > 60 Est GFR (Non-Af Amer) > 60 Glucose 100 Calcium 8.1 L 11/13/17 12:13 Catheter Tip - Central Line Catheter Tip Culture - Final NO GROWTH 3 DAYS Impressions: Abdomen Ultrasound 11/08/17 05:00 IMPRESSION: Cholelithiasis with borderline gallbladder wall thickening and positive ultrasonographic Dennis's sign. Further evaluation with HIDA scan may be beneficial. Abdomen/Pelvis CT 11/08/17 08:13 IMPRESSION: Stones in the gallbladder with pericholecystic inflammatory change worrisome for acute cholecystitis. Findings discussed with patient's attending surgeon Chest X-Ray 11/12/17 06:00 IMPRESSION: No focal infiltrates. Assessment & Plan - Diagnosis (1) Acute kidney injury Is this a current diagnosis for this admission?: Yes (2) Autism Is this a current diagnosis for this admission?: Yes (3) Cholelithiasis Qualifiers: Cholelithiasis location: gallbladder Cholecystitis presence: with cholecystitis Cholecystitis acuity: acute Biliary obstruction: with biliary obstruction Qualified Code(s): K80.01 - Calculus of gallbladder with acute cholecystitis with obstruction Is this a current diagnosis for this admission?: Yes (4) Elevated LFTs Is this a current diagnosis for this admission?: Yes (5) History of endoscopic retrograde cholangiopancreatography Is this a current diagnosis for this admission?: Yes (6) Obesity Qualifiers: Obesity type: due to excess calories Body mass index: BMI 38.0-38.9 Is this a current diagnosis for this admission?: Yes (7) Respiratory failure Qualifiers: Chronicity: acute Is this a current diagnosis for this admission?: Yes (8) Schizophrenia Is this a current diagnosis for this admission?: Yes (9) Severe sepsis Is this a current diagnosis for this admission?: Yes (10) Sinus tachycardia Is this a current diagnosis for this admission?: Yes
[2017-11-17] MEDS: DEXTROSE 5%-1/2 NORMAL SALINE 1,000 ML IV PRN (23:00)
[2017-11-18] MEDS: PROMETHAZINE HCL INJ 25 MG/1 ML VIAL IV PRN (02:00)
[2017-11-18] MEDS: METRONIDAZOLE 500 MG/NS RTU 500 MG/100 ML RTUPB IV SCH (03:49)
[2017-11-18] MEDS ORDERED: LANSOPRAZOLE 15 MG TAB.RAP.DR PO SCH (06:00)
[2017-11-18] MEDS: CLONAZEPAM 1 MG TABLET PO SCH ×2 (06:31→13:38)
[2017-11-18] MEDS: DEXTROSE 5%-1/2 NORMAL SALINE 1,000 ML IV PRN ×2 (06:32→21:38)
[2017-11-18] MEDS ORDERED: NALOXONE HCL INJ/PF 0.4 MG/1 ML SDV ONE (08:53)
[2017-11-18] MEDS ORDERED: FENTANYL CITRATE INJ/PF 100 MCG/2 ML AMPUL ONE (08:53)
[2017-11-18] MEDS ORDERED: DIPHENHYDRAMINE HCL 50 MG/ML VIAL ONE (08:53)
[2017-11-18] MEDS ORDERED: ONDANSETRON HCL INJ/PF 4 MG/2 ML SDV ONE (08:53)
[2017-11-18] MEDS ORDERED: FLUMAZENIL INJ 0.5 MG/5 ML VIAL ONE (08:54)
[2017-11-18] MEDS ORDERED: EPINEPHRINE INJ 1 MG/10 ML DISP.SYRIN ONE (08:54)
[2017-11-18] MEDS ORDERED: GLUCAGON,HUMAN RECOMB 1 MG INJ ONE (08:54)
--- NOTE | 2017-11-18 09:29 | PDOC PROGRESS REPORT ---
Subjective Progress Note for:: 11/18/17 Reason For Visit: SEPTIC SHOCK had some nausea this morning. Physical Exam Vital Signs: Temp Pulse Resp BP Pulse Ox 99.8 F 128 H 19 114/58 L 98 11/18/17 07:13 11/18/17 07:13 11/18/17 07:13 11/18/17 07:13 11/18/17 07:13 Intake & Output 11/17/17 11/18/17 11/19/17 06:59 06:59 06:59 Intake Total 2110 1210 Output Total 900 Balance 2110 310 Weight 123.4 kg 122.6 kg General appearance: PRESENT: other GI/Abdominal exam: PRESENT: other - Abdomen soft, nontender no peritoneal signs ; VAC in place no bleeding Results Laboratory Results: 11/17/17 05:27 11/17/17 05:27 Impressions: Abdomen Ultrasound 11/08/17 05:00 IMPRESSION: Cholelithiasis with borderline gallbladder wall thickening and positive ultrasonographic Dennis's sign. Further evaluation with HIDA scan may be beneficial. Abdomen/Pelvis CT 11/08/17 08:13 IMPRESSION: Stones in the gallbladder with pericholecystic inflammatory change worrisome for acute cholecystitis. Findings discussed with patient's attending surgeon Chest X-Ray 11/12/17 06:00 IMPRESSION: No focal infiltrates. Assessment & Plan - Diagnosis (1) Septic shock Is this a current diagnosis for this admission?: Yes Plan: Patient now 10 days status post laparoscopic conversion to open cholecystectomy rainout, superficial wound infection treated with VAC Patient has failed to progress satisfactorily due to a variety of small issues including hematemesis blood per rectum recurrent nausea etc. Patient may have an ulcer or gastritis Recommendations: 1. We will perform upper endoscopy for diagnostic purposes, fifth floor, conscious sedation; I spoke to the patient's mother about this and she agrees to proceed. 2. Anticipate changing the VAC today (2) Cholelithiasis Qualifiers: Cholelithiasis location: gallbladder Cholecystitis presence: with cholecystitis Cholecystitis acuity: acute Biliary obstruction: with biliary obstruction Qualified Code(s): K80.01 - Calculus of gallbladder with acute cholecystitis with obstruction Is this a current diagnosis for this admission?: Yes (3) Elevated LFTs Is this a current diagnosis for this admission?: Yes (4) Obesity Qualifiers: Obesity type: due to excess calories Body mass index: BMI 38.0-38.9 Is this a current diagnosis for this admission?: Yes (5) Autism Is this a current diagnosis for this admission?: Yes (6) Schizophrenia Is this a current diagnosis for this admission?: Yes (7) History of endoscopic retrograde cholangiopancreatography Is this a current diagnosis for this admission?: Yes
[2017-11-18] MEDS: MIDAZOLAM 2 MG/2 ML INJ ONE ×2 (09:45→09:50)
--- NOTE | 2017-11-18 10:22 | Operative Report ---
Nonrecallable Operative Report DATE OF SURGERY: 11/18/17 PREOPERATIVE DIAGNOSIS: Nausea, vomiting. Hematemesis POSTOPERATIVE DIAGNOSIS: Same. 1. Mild distal esophagitis. 2. Diffuse gastritis, mild OPERATION: 1. Esophagogastroduodenoscopy. 2. Biopsies of the distal esophagus and gastric antrum SURGEON: LES ARNOLD ANESTHESIA: Moderate Sedation TISSUE REMOVED OR ALTERED: Biopsies COMPLICATIONS: no ESTIMATED BLOOD LOSS: scant INTRAOPERATIVE FINDINGS: see below PROCEDURE: Patient was taken from the fourth floor to the fifth floor, endoscopy suite appropriate monitoring devices attached appropriate level of conscious sedation induced. He is placed in the left lateral semirecumbent position. Surgical plan surgical timeout were conducted. The flexible adult upper endoscope was advanced to the oropharynx, down the esophagus through the stomach into the duodenum. This is well tolerated by the patient. The duodenum was essentially normal. There is no evidence of tumor stricture bleeding or polyp. The scope was brought back to the pylorus which was essentially unremarkable. The stomach was significant for mild gastritis, but no ulceration no streaking no tumor no polyp no evidence of bleeding or clot. A random biopsy of the gastric antrum was performed with cold forceps device and sent to pathology as gastric antrum. The scope was retroflexed several times, where there was small hiatal hernia. No evidence of pathology in the gastric cardia. The scope was straightened out. The Z line was approximately 40 cm from the incisor. The distal esophagus showed mild esophagitis. A random biopsy distal esophagus was chosen and performed with cold forceps device. Bleeding was minimal. There was no evidence of esophageal stricture, tumor, or active ulceration. The scope was withdrawn from the patient's oropharynx. The patient tolerated the procedure well.
[2017-11-18] MEDS: DULOXETINE HCL 30 MG CAPSULE.DR PO SCH ×2 (10:57→21:38)
[2017-11-18] MEDS: RISPERIDONE 1 MG TABLET PO SCH ×2 (10:57→21:38)
[2017-11-18] MEDS: BENZTROPINE MESYLATE 1 MG TABLET PO SCH ×2 (10:57→17:33)
[2017-11-18] MEDS: TOPIRAMATE 100 MG TABLET PO SCH ×2 (10:57→21:38)
[2017-11-18] MEDS: ACETAMINOPHEN 325 MG TABLET PO PRN ×2 (12:12→22:54)
[2017-11-18] MEDS ORDERED: OMEPRAZOLE 40 MG PO ONE (13:00)
[2017-11-18] MEDS: TRAMADOL HCL 50 MG TABLET PO PRN (13:38)
--- NOTE | 2017-11-18 14:10 | PDOC PROGRESS REPORT ---
Subjective Progress Note for:: 11/18/17 Subjective:: Pt is resting quietly. No acute distress. Reason For Visit: SEPTIC SHOCK Physical Exam Vital Signs: Temp Pulse Resp BP Pulse Ox 98.5 F 122 H 19 142/65 H 99 11/18/17 13:35 11/18/17 12:55 11/18/17 12:55 11/18/17 12:55 11/18/17 12:55 Intake & Output 11/17/17 11/18/17 11/19/17 06:59 06:59 06:59 Intake Total 2110 1210 600 Output Total 900 Balance 2110 310 600 Weight 123.4 kg 122.6 kg General appearance: PRESENT: no acute distress, morbidly obese Respiratory exam: PRESENT: other - No increased work of breathing.. ABSENT: rales, rhonchi, wheezes Cardiovascular exam: PRESENT: RRR, tachycardia, other - No lateral PMI. No thrills.. ABSENT: diastolic murmur, rubs, systolic murmur Pulses: PRESENT: normal dorsalis pedis pul Vascular exam: PRESENT: normal capillary refill GI/Abdominal exam: PRESENT: normal bowel sounds, soft. ABSENT: distended, guarding, mass, organolmegaly, rebound, tenderness Rectal exam: PRESENT: deferred Extremities exam: PRESENT: full ROM. ABSENT: calf tenderness, clubbing, pedal edema Neurological exam: PRESENT: alert, awake, oriented to person, oriented to place , oriented to time, oriented to situation, CN II-XII grossly intact. ABSENT: motor sensory deficit Psychiatric exam: PRESENT: appropriate affect, normal mood Skin exam: PRESENT: dry, intact, rash, warm Results Laboratory Results: 11/17/17 05:27 11/17/17 05:27 Impressions: Abdomen Ultrasound 11/08/17 05:00 IMPRESSION: Cholelithiasis with borderline gallbladder wall thickening and positive ultrasonographic Dennis's sign. Further evaluation with HIDA scan may be beneficial. Abdomen/Pelvis CT 11/08/17 08:13 IMPRESSION: Stones in the gallbladder with pericholecystic inflammatory change worrisome for acute cholecystitis. Findings discussed with patient's attending surgeon Chest X-Ray 11/12/17 06:00 IMPRESSION: No focal infiltrates. Assessment & Plan - Diagnosis (1) Acute kidney injury Is this a current diagnosis for this admission?: Yes (2) Autism Is this a current diagnosis for this admission?: Yes (3) Cholelithiasis Qualifiers: Cholelithiasis location: gallbladder Cholecystitis presence: with cholecystitis Cholecystitis acuity: acute Biliary obstruction: with biliary obstruction Qualified Code(s): K80.01 - Calculus of gallbladder with acute cholecystitis with obstruction Is this a current diagnosis for this admission?: Yes (4) Elevated LFTs Is this a current diagnosis for this admission?: Yes (5) History of endoscopic retrograde cholangiopancreatography Is this a current diagnosis for this admission?: Yes (6) Obesity Qualifiers: Obesity type: due to excess calories Body mass index: BMI 38.0-38.9 Is this a current diagnosis for this admission?: Yes (7) Respiratory failure Qualifiers: Chronicity: acute Is this a current diagnosis for this admission?: Yes (8) Schizophrenia Is this a current diagnosis for this admission?: Yes (9) Severe sepsis Is this a current diagnosis for this admission?: Yes (10) Sinus tachycardia Is this a current diagnosis for this admission?: Yes (11) Gastritis Qualifiers: Gastritis type: unspecified gastritis Chronicity: acute Is this a current diagnosis for this admission?: Yes Plan: PPI bid (12) Esophagitis Is this a current diagnosis for this admission?: Yes Plan: PPI. - Time Time Spent with patient: 35 or more minutes Anticipated discharge: Home - Plan Summary Plan Summary: I have discussed the patient in detail with Dr. Armendariz. I agree that the Flagyl has reached the end of its usefullness and that it may be contributing to the patient's ongoing issues with nausea and vomiting. Overall the patient is stable and is probably ready for discharge soon.
--- NOTE | 2017-11-18 18:12 | RADIOLOGY REPORT (SQ) ---
EXAM DESCRIPTION: CT CHEST WITHOUT COMPLETED DATE/TIME: 11/18/2017 5:17 pm REASON FOR STUDY: pulmonary embolus COMPARISON: Chest x-ray dated 11/12/2017 TECHNIQUE: CT scan performed of the chest without intravenous contrast. Images reviewed with lung, soft tissue and bone windows. Reconstructed coronal and sagittal MPR images reviewed. All images st ored on PACS. All CT scanners at this facility use dose modulation, iterative reconstruction, and/or weight based d osing when appropriate to reduce radiation dose to as low as reasonably achievable (ALARA). [facility]: Dose Right [facility]: CareDose [facility]: Dose Right [facility]: Teradose 4D [facility]: [employer] RADIATION DOSE: CT Rad equipment meets quality standard of care and radiation dose reduction techniq ues were employed. CTDIvol: 19.0 mGy. DLP: 787 mGy-cm. mGy. LIMITATIONS: No technical limitations. FINDINGS: LUNGS AND PLEURA: No masses, infiltrates, or pneumothorax. No pleural effusions or pleura l calcifications. HILAR AND MEDIASTINAL STRUCTURES: No identified masses or abnormal nodes. No obvious aneurysm. HEART AND VASCULAR STRUCTURES: No aneurysm. No pericardial effusion. UPPER ABDOMEN: There are presumed postsurgical changes in the gallbladder fossa related to a cholecys tectomy. THYROID AND OTHER SOFT TISSUES: No masses. No adenopathy. BONES: No significant finding. HARDWARE: None in the chest. OTHER: Some elevation of the right hemidiaphragm is seen. IMPRESSION: NO SIGNIFICANT FINDING ON NON-CONTRASTED CHEST CT. TECHNICAL DOCUMENTATION: JOB ID: [id number] Quality ID # [id number]: Final reports with documentation of one or more dose reduction techniques (e.g., Au tomated exposure control, adjustment of the mA and/or kV according to patient size, use of iterative reconstruction technique) 2010 [employer]- All Rights Reserved Reading location - IP/workstation name: [email or web address]
[2017-11-18] MEDS ORDERED: DILTIAZEM HCL INJ 25 MG/5 ML VIAL IV ONE (19:45)
[2017-11-18] MEDS: MAG HYDROX/AL HYDROX/SIMETH SUSP 30 ML UDCUP PO PRN (22:54)
[2017-11-19] MEDS: DEXTROSE 5%-1/2 NORMAL SALINE 1,000 ML IV PRN ×3 (06:02→21:35)
[2017-11-19] MEDS: OMEPRAZOLE 40 MG PO SCH (06:02)
[2017-11-19] MEDS: BENZTROPINE MESYLATE 1 MG TABLET PO SCH ×2 (09:39→17:54)
[2017-11-19] MEDS: DULOXETINE HCL 30 MG CAPSULE.DR PO SCH ×2 (09:39→21:12)
[2017-11-19] MEDS: RISPERIDONE 1 MG TABLET PO SCH ×2 (09:39→21:12)
[2017-11-19] MEDS: TOPIRAMATE 100 MG TABLET PO SCH ×2 (09:40→21:12)
[2017-11-19] MEDS: ACETAMINOPHEN 325 MG TABLET PO PRN ×2 (12:41→20:50)
[2017-11-19 14:04] LABS: ARTERIAL BLOOD BASE EXCESS -5.5 mmol/L; ARTERIAL BLOOD H2CO3 0.86 mmol/L (1.05-1.35); ARTERIAL BLOOD O2 SATURATION 96.8 % (94-98); ARTERIAL BLOOD PCO2 28.5 mmHg (35-45); ARTERIAL BLOOD PH 7.42 (7.35-7.45); ARTERIAL BLOOD PO2 85.5 mmHg (80-100); ARTERIAL BLOOD TOTAL CO2 18.9 mmol/L (23-27)
[2017-11-19 14:07] LABS: ARTERIAL BLOOD FIO2 2L
[2017-11-19 15:20] LABS: ANION GAP 12 (5-19); BLOOD UREA NITROGEN 5 mg/dL (7-20); CALCIUM 7.5 mg/dL (8.4-10.2); CARBON DIOXIDE 19 mmol/L (22-30); CHLORIDE 109 mmol/L (98-107); GLUCOSE 118 mg/dL (75-110); SODIUM 140.2 mmol/L (137-145)
[2017-11-19] MEDS: CLONAZEPAM 1 MG TABLET PO SCH ×2 (16:30→21:12)
--- NOTE | 2017-11-19 16:33 | RADIOLOGY REPORT (SQ) ---
EXAM DESCRIPTION: NM LUNG VENT/PERF SCAN COMPLETED DATE/TIME: 11/19/2017 4:09 pm REASON FOR STUDY: TACHYCARDIA COMPARISON: CT chest 11/18/2017 Chest films 11/12/2017, 11/09/2017, 11/08/2017 RADIONUCLIDE AND DOSE: 5.4 millicuries TC-99m MAA Intravenous 32.3 millicuries TC-99m DTPA Inhaled aerosol TECHNIQUE: 2 views of the lungs acquired post ventilation of DTPA aerosol. Eight views of the lungs acquired following injection of MAA. LIMITATIONS: None. FINDINGS: VENTILATION: Homogeneous uptake throughout both lungs. Chronic elevation right hemidiaphr agm PERFUSION: Left lung activity is normal. On the right side, there is a chronic elevated hemidiaphrag m. Tiny apical nonsegmental perfusion defect of doubtful clinical significance at the right posterio r lung apex. Findings discussed with Dr. Zaldivar. OTHER: No other significant finding. IMPRESSION: Low probability scan for pulmonary embolus TECHNICAL DOCUMENTATION: JOB ID: [id number] [employer]- All Rights Reserved Reading location - IP/workstation name: [email or web address]-[email or web address]
--- NOTE | 2017-11-19 16:44 | PDOC PROGRESS REPORT ---
Subjective Progress Note for:: 11/19/17 Subjective:: The patient is sitting up in bed. No acute distress. He is awake and alert. Mother and grandmother are at bedside. Reason For Visit: SEPTIC SHOCK Physical Exam Vital Signs: Temp Pulse Resp BP Pulse Ox 99.5 F 119 H 22 H 121/87 H 96 11/19/17 11:27 11/19/17 14:00 11/19/17 11:27 11/19/17 11:27 11/19/17 11:27 Intake & Output 11/18/17 11/19/17 11/20/17 06:59 06:59 06:59 Intake Total 1210 2480 838 Output Total 900 800 Balance 310 1680 838 Weight 122.6 kg 124.4 kg General appearance: PRESENT: no acute distress, morbidly obese Respiratory exam: PRESENT: other - No increased work of breathing. No tactile fremitus.. ABSENT: rales, rhonchi, wheezes Cardiovascular exam: PRESENT: RRR, other. ABSENT: diastolic murmur, rubs, systolic murmur Pulses: PRESENT: normal femoral pulses, normal dorsalis pedis pul GI/Abdominal exam: PRESENT: normal bowel sounds, soft. ABSENT: distended, guarding, mass, organolmegaly, rebound, tenderness Rectal exam: PRESENT: deferred Extremities exam: PRESENT: full ROM. ABSENT: calf tenderness, clubbing, pedal edema Musculoskeletal exam: PRESENT: ambulatory Neurological exam: PRESENT: alert, awake, oriented to person, oriented to place , oriented to time, oriented to situation, CN II-XII grossly intact. ABSENT: motor sensory deficit Psychiatric exam: PRESENT: appropriate affect, normal mood. ABSENT: homicidal ideation, suicidal ideation Skin exam: PRESENT: dry, intact, warm. ABSENT: cyanosis, rash Results Laboratory Results: 11/17/17 05:27 11/19/17 14:26 11/19/17 11/19/17 13:50 14:26 Carbonic Acid 0.86 L HCO3/H2CO3 Ratio 20:1 ABG pH 7.42 ABG pCO2 28.5 L ABG pO2 85.5 ABG HCO3 18.0 L ABG O2 Saturation 96.8 ABG Base Excess -5.5 FiO2 2L Sodium 140.2 Potassium 4.0 Chloride 109 H Carbon Dioxide 19 L Anion Gap 12 BUN 5 L Creatinine 0.74 Est GFR ( Amer) > 60 Est GFR (Non-Af Amer) > 60 Glucose 118 H Calcium 7.5 L Impressions: Abdomen Ultrasound 11/08/17 05:00 IMPRESSION: Cholelithiasis with borderline gallbladder wall thickening and positive ultrasonographic Dennis's sign. Further evaluation with HIDA scan may be beneficial. Abdomen/Pelvis CT 11/08/17 08:13 IMPRESSION: Stones in the gallbladder with pericholecystic inflammatory change worrisome for acute cholecystitis. Findings discussed with patient's attending surgeon Chest X-Ray 11/12/17 06:00 IMPRESSION: No focal infiltrates. Chest CT 11/18/17 00:00 IMPRESSION: NO SIGNIFICANT FINDING ON NON-CONTRASTED CHEST CT. Assessment & Plan - Diagnosis (1) Acute kidney injury Is this a current diagnosis for this admission?: Yes Plan: IV fluids, avoid nephrotoxic substances, and monitor electrolytes. Resolved. (2) Autism Is this a current diagnosis for this admission?: Yes Plan: Continue home medications. As needed doses of ativan and haldol will be available on a prn basis Stable. (3) Cholelithiasis Qualifiers: Cholelithiasis location: gallbladder Cholecystitis presence: with cholecystitis Cholecystitis acuity: acute Biliary obstruction: with biliary obstruction Qualified Code(s): K80.01 - Calculus of gallbladder with acute cholecystitis with obstruction Is this a current diagnosis for this admission?: Yes Plan: Status post laparoscopic cholecystectomy and ERCP. The patient tolerated the procedure well. Drain left in place. (4) Elevated LFTs Is this a current diagnosis for this admission?: Yes Plan: Resolved. (5) History of endoscopic retrograde cholangiopancreatography Is this a current diagnosis for this admission?: Yes Plan: Resolved. (6) Obesity Qualifiers: Obesity type: due to excess calories Body mass index: BMI 38.0-38.9 Is this a current diagnosis for this admission?: Yes Plan: Complicates all cares. (7) Respiratory failure Qualifiers: Chronicity: acute Is this a current diagnosis for this admission?: Yes Plan: Resolved (8) Schizophrenia Is this a current diagnosis for this admission?: Yes Plan: Continue home medications. Stable (9) Severe sepsis Is this a current diagnosis for this admission?: Yes Plan: Resolved. (10) Sinus tachycardia Is this a current diagnosis for this admission?: Yes Plan: Ongoing issue. Likely cause is either fever or deconditioning. No pathologic cause has been identified. (11) Gastritis Qualifiers: Gastritis type: unspecified gastritis Chronicity: acute Is this a current diagnosis for this admission?: Yes Plan: PPI bid (12) Esophagitis Is this a current diagnosis for this admission?: Yes Plan: PPI. (13) Tachypnea Is this a current diagnosis for this admission?: Yes Plan: CT chest negative for acute abnormality, VQ scan discussed with Dr. Deutsch and is considered low probability. The patient is not hypoxic. ABG is unremarkable. Elevated right hemidiaphragm is chronic. No pathological cause for tachypnea is found other than deconditioning. - Time Time Spent with patient: 35 or more minutes
[2017-11-19 18:48] LABS: ABSOLUTE EOSINOPHILS # (AUTO) 0.1 10^3/uL (0.0-0.6); ABSOLUTE LYMPHOCYTES (AUTO) 1.5 10^3/uL (0.5-4.7); ABSOLUTE MONOCYTES (AUTO) 1.1 10^3/uL (0.1-1.4); ABSOLUTE NEUT (AUTO) 11.3 10^3/uL (1.7-8.2); BASOPHILS % (AUTO) 0.3 % (0-2); EOSINOPHILS % (AUTO) 0.4 % (0-6); HEMATOCRIT 26.3 % (37.9-51.0); HEMOGLOBIN 8.6 g/dL (13.5-17.0); LYMPHOCYTES % (AUTO) 10.7 % (13-45); MEAN CORPUSCULAR HEMOGLOBIN 27.8 pg (27.0-33.4); MEAN CORPUSCULAR HGB CONC 32.6 g/dL (32.0-36.0); MEAN CORPUSCULAR VOLUME 85 fl (80-97); MONOCYTES % (AUTO) 7.9 % (3-13); PLATELET COUNT 286 10^3/uL (150-450); RED BLOOD COUNT 3.09 10^6/uL (4.35-5.55); RED CELL DISTRIBUTION WIDTH 14.3 % (11.5-14.0); SEGMENTED NEUTROPHILS % (AUTO) 80.7 % (42-78); TOTAL CELLS COUNTED % (AUTO) 100 %
[2017-11-20] MEDS: DEXTROSE 5%-1/2 NORMAL SALINE 1,000 ML IV PRN (04:43)
[2017-11-20] MEDS: ACETAMINOPHEN 325 MG TABLET PO PRN ×2 (04:44→18:11)
[2017-11-20] MEDS: OMEPRAZOLE 40 MG PO SCH (05:11)
[2017-11-20] MEDS: CLONAZEPAM 1 MG TABLET PO SCH ×3 (05:11→21:31)
[2017-11-20] MEDS: TOPIRAMATE 100 MG TABLET PO SCH ×2 (09:42→21:32)
[2017-11-20] MEDS: DULOXETINE HCL 30 MG CAPSULE.DR PO SCH ×2 (09:42→21:32)
[2017-11-20] MEDS: RISPERIDONE 1 MG TABLET PO SCH ×2 (09:42→21:31)
[2017-11-20] MEDS: BENZTROPINE MESYLATE 1 MG TABLET PO SCH ×2 (09:42→17:40)
--- NOTE | 2017-11-20 10:30 | PDOC PROGRESS REPORT ---
Subjective Progress Note for:: 11/20/17 Subjective:: tachypnea, feels weak Reason For Visit: SEPTIC SHOCK Physical Exam Vital Signs: Temp Pulse Resp BP Pulse Ox 98.6 F 103 H 21 H 115/65 97 11/20/17 03:27 11/20/17 03:27 11/20/17 03:27 11/20/17 03:27 11/20/17 03:27 Intake & Output 11/19/17 11/20/17 11/21/17 06:59 06:59 06:59 Intake Total 2480 5614 Output Total 800 2300 Balance 1680 3314 Weight 124.4 kg 122.2 kg Exam: wound vac in place. abd soft non tender Results Laboratory Results: 11/19/17 18:13 11/19/17 14:26 11/19/17 11/19/17 11/19/17 13:50 14:26 18:13 WBC 14.0 H RBC 3.09 L Hgb 8.6 L Hct 26.3 L MCV 85 MCH 27.8 MCHC 32.6 RDW 14.3 H Plt Count 286 Seg Neutrophils % 80.7 H Lymphocytes % 10.7 L Monocytes % 7.9 Eosinophils % 0.4 Basophils % 0.3 Absolute Neutrophils 11.3 H Absolute Lymphocytes 1.5 Absolute Monocytes 1.1 Absolute Eosinophils 0.1 Absolute Basophils 0.0 Carbonic Acid 0.86 L HCO3/H2CO3 Ratio 20:1 ABG pH 7.42 ABG pCO2 28.5 L ABG pO2 85.5 ABG HCO3 18.0 L ABG O2 Saturation 96.8 ABG Base Excess -5.5 FiO2 2L Sodium 140.2 Potassium 4.0 Chloride 109 H Carbon Dioxide 19 L Anion Gap 12 BUN 5 L Creatinine 0.74 Est GFR ( Amer) > 60 Est GFR (Non-Af Amer) > 60 Glucose 118 H Calcium 7.5 L Impressions: Abdomen Ultrasound 11/08/17 05:00 IMPRESSION: Cholelithiasis with borderline gallbladder wall thickening and positive ultrasonographic Dennis's sign. Further evaluation with HIDA scan may be beneficial. Abdomen/Pelvis CT 11/08/17 08:13 IMPRESSION: Stones in the gallbladder with pericholecystic inflammatory change worrisome for acute cholecystitis. Findings discussed with patient's attending surgeon Chest X-Ray 11/12/17 06:00 IMPRESSION: No focal infiltrates. Chest CT 11/18/17 00:00 IMPRESSION: NO SIGNIFICANT FINDING ON NON-CONTRASTED CHEST CT. Lung Scan-VQ NM 11/19/17 00:00 IMPRESSION: Low probability scan for pulmonary embolus Assessment & Plan - Plan Summary Plan Summary: Had V/Q scan which showed low probability for PE Continue wound vac here and on discharge to home. Wound shoul heal by secondary intention next 2-3 weeks
[2017-11-20 10:41] LABS: ABSOLUTE LYMPHOCYTES (AUTO) 1.1 10^3/uL (0.5-4.7); ABSOLUTE MONOCYTES (AUTO) 0.7 10^3/uL (0.1-1.4); ABSOLUTE NEUT (AUTO) 8.3 10^3/uL (1.7-8.2); BASOPHILS % (AUTO) 0.5 % (0-2); EOSINOPHILS % (AUTO) 0.4 % (0-6); HEMATOCRIT 27.4 % (37.9-51.0); LYMPHOCYTES % (AUTO) 10.9 % (13-45); MEAN CORPUSCULAR HEMOGLOBIN 28.1 pg (27.0-33.4); MEAN CORPUSCULAR VOLUME 85 fl (80-97); MONOCYTES % (AUTO) 6.9 % (3-13); PLATELET COUNT 324 10^3/uL (150-450); RED BLOOD COUNT 3.22 10^6/uL (4.35-5.55); RED CELL DISTRIBUTION WIDTH 14.6 % (11.5-14.0); SEGMENTED NEUTROPHILS % (AUTO) 81.3 % (42-78); TOTAL CELLS COUNTED % (AUTO) 100 %; WHITE BLOOD COUNT 10.2 10^3/uL (4.0-10.5)
--- NOTE | 2017-11-20 16:49 | PDOC PROGRESS REPORT ---
Subjective Progress Note for:: 11/20/17 Subjective:: Patient is seen resting in bed. He is awake, alert and oriented 3. He states his mom went to get him his lunch. He denies any chest pain, shortness of breath or dyspnea. Denies any cough. He denies any fevers or chills. He denies any nausea, vomiting or abdominal pain. He states the wound VAC does hurt from time to time on his abdomen. He states he is hungry. He denies any arthralgias or myalgias. He states last night he did have some back pain. Remaining review of systems are negative. Reason For Visit: SEPTIC SHOCK Physical Exam Vital Signs: Temp Pulse Resp BP Pulse Ox 98.2 F 132 H 24 H 131/68 H 100 11/20/17 11:23 11/20/17 14:00 11/20/17 11:23 11/20/17 11:23 11/20/17 11:23 Intake & Output 11/19/17 11/20/17 11/21/17 06:59 06:59 06:59 Intake Total 2480 5614 Output Total 800 2300 Balance 1680 3314 Weight 124.4 kg 122.2 kg General appearance: PRESENT: no acute distress, obese, well-developed, well- nourished Head exam: PRESENT: atraumatic, normocephalic Eye exam: PRESENT: conjunctiva pink, EOMI, PERRLA. ABSENT: scleral icterus Ear exam: PRESENT: normal external ear exam Mouth exam: PRESENT: moist, tongue midline Neck exam: ABSENT: carotid bruit, JVD, lymphadenopathy, thyromegaly Respiratory exam: PRESENT: clear to auscultation tolu. ABSENT: rales, rhonchi, wheezes Cardiovascular exam: PRESENT: RRR. ABSENT: diastolic murmur, rubs, systolic murmur Pulses: PRESENT: normal dorsalis pedis pul Vascular exam: PRESENT: normal capillary refill GI/Abdominal exam: PRESENT: normal bowel sounds, soft, tenderness - Abdominal wound VAC in place, other. ABSENT: distended, guarding, mass, organolmegaly, rebound Rectal exam: PRESENT: deferred Extremities exam: PRESENT: full ROM. ABSENT: calf tenderness, clubbing, pedal edema Musculoskeletal exam: PRESENT: ambulatory, full ROM Neurological exam: PRESENT: alert - Patient is developmentally delayed. He lives with his parents. Father is a nurse., awake, oriented to person, oriented to place, oriented to time, oriented to situation, CN II-XII grossly intact. ABSENT: motor sensory deficit Psychiatric exam: PRESENT: appropriate affect, normal mood. ABSENT: homicidal ideation, suicidal ideation Skin exam: PRESENT: dry, intact, warm, other - Wound VAC to abdomen. No surrounding erythema. ABSENT: cyanosis, rash Results Laboratory Results: 11/20/17 10:23 11/19/17 14:26 11/19/17 11/20/17 18:13 10:23 WBC 14.0 H 10.2 RBC 3.09 L 3.22 L Hgb 8.6 L 9.0 L Hct 26.3 L 27.4 L MCV 85 85 MCH 27.8 28.1 MCHC 32.6 33.0 RDW 14.3 H 14.6 H Plt Count 286 324 Seg Neutrophils % 80.7 H 81.3 H Lymphocytes % 10.7 L 10.9 L Monocytes % 7.9 6.9 Eosinophils % 0.4 0.4 Basophils % 0.3 0.5 Absolute Neutrophils 11.3 H 8.3 H Absolute Lymphocytes 1.5 1.1 Absolute Monocytes 1.1 0.7 Absolute Eosinophils 0.1 0.0 Absolute Basophils 0.0 0.0 Impressions: Abdomen Ultrasound 11/08/17 05:00 IMPRESSION: Cholelithiasis with borderline gallbladder wall thickening and positive ultrasonographic Dennis's sign. Further evaluation with HIDA scan may be beneficial. Abdomen/Pelvis CT 11/08/17 08:13 IMPRESSION: Stones in the gallbladder with pericholecystic inflammatory change worrisome for acute cholecystitis. Findings discussed with patient's attending surgeon Chest X-Ray 11/12/17 06:00 IMPRESSION: No focal infiltrates. Chest CT 11/18/17 00:00 IMPRESSION: NO SIGNIFICANT FINDING ON NON-CONTRASTED CHEST CT. Lung Scan-VQ NM 11/19/17 00:00 IMPRESSION: Low probability scan for pulmonary embolus Assessment & Plan - Diagnosis (1) Acute gangrenous cholecystitis Is this a current diagnosis for this admission?: Yes Plan: Is postop emergent cholecystectomy. This was complicated by wound separation requiring VAC dressing (2) Abdominal pain Qualifiers: Abdominal location: right upper quadrant Qualified Code(s): R10.11 - Right upper quadrant pain Is this a current diagnosis for this admission?: Yes Plan: Secondary to wound VAC this is improving (3) Acute kidney injury Is this a current diagnosis for this admission?: Yes Plan: Resolved. (4) Cholelithiasis Qualifiers: Cholelithiasis location: gallbladder Cholecystitis presence: with cholecystitis Cholecystitis acuity: acute Biliary obstruction: with biliary obstruction Qualified Code(s): K80.01 - Calculus of gallbladder with acute cholecystitis with obstruction Is this a current diagnosis for this admission?: Yes Plan: Postop cholecystectomy (5) Obesity Qualifiers: Obesity type: due to excess calories Body mass index: BMI 38.0-38.9 Is this a current diagnosis for this admission?: Yes (6) Septic shock Is this a current diagnosis for this admission?: Yes Plan: Resolved (7) Sinus tachycardia Is this a current diagnosis for this admission?: Yes Plan: Likely secondary to anemia and deconditioning postoperatively. VQ scan showed low probability for PE. Noncontrast CT of the chest was normal. He had a mild bump in his white count to 14,000 yesterday is down to 10 today. - Time Time Spent with patient: 25-34 minutes Total Critical Time (Minutes): 20 Medications reviewed and adjusted accordingly: Yes Anticipated discharge: Home with Homehealth
--- NOTE | 2017-11-20 19:19 | PDOC PROGRESS REPORT ---
Subjective Progress Note for:: 11/20/17 Subjective:: feels comfortable. Reason For Visit: SEPTIC SHOCK Physical Exam Vital Signs: Temp Pulse Resp BP Pulse Ox 98.2 F 132 H 24 H 131/68 H 100 11/20/17 11:23 11/20/17 14:00 11/20/17 11:23 11/20/17 11:23 11/20/17 11:23 Intake & Output 11/19/17 11/20/17 11/21/17 06:59 06:59 06:59 Intake Total 2480 5614 240 Output Total 800 2300 950 Balance 1680 3314 -710 Weight 124.4 kg 122.2 kg Exam: wound vac in place. Abd soft non tender. Very good mood Results Laboratory Results: 11/20/17 10:23 11/19/17 14:26 11/20/17 10:23 WBC 10.2 RBC 3.22 L Hgb 9.0 L Hct 27.4 L MCV 85 MCH 28.1 MCHC 33.0 RDW 14.6 H Plt Count 324 Seg Neutrophils % 81.3 H Lymphocytes % 10.9 L Monocytes % 6.9 Eosinophils % 0.4 Basophils % 0.5 Absolute Neutrophils 8.3 H Absolute Lymphocytes 1.1 Absolute Monocytes 0.7 Absolute Eosinophils 0.0 Absolute Basophils 0.0 Impressions: Abdomen Ultrasound 11/08/17 05:00 IMPRESSION: Cholelithiasis with borderline gallbladder wall thickening and positive ultrasonographic Dennis's sign. Further evaluation with HIDA scan may be beneficial. Abdomen/Pelvis CT 11/08/17 08:13 IMPRESSION: Stones in the gallbladder with pericholecystic inflammatory change worrisome for acute cholecystitis. Findings discussed with patient's attending surgeon Chest X-Ray 11/12/17 06:00 IMPRESSION: No focal infiltrates. Chest CT 11/18/17 00:00 IMPRESSION: NO SIGNIFICANT FINDING ON NON-CONTRASTED CHEST CT. Lung Scan-VQ NM 11/19/17 00:00 IMPRESSION: Low probability scan for pulmonary embolus Assessment & Plan - Time Time Spent with patient: 15-24 minutes - Plan Summary Plan Summary: Discuss with parentts about leaving wound vac and let wound heal by secondary intention. Will likely need wound vac another 2-3 weeks before wound should heal. Hesitant to do delayed closure because of patient's emotional instability. He is comfortable with the wound vac right now. Need to arrange Home visit by nurse to ff-up and change wound vac dressings. Parents are comfortable with this arrangement.
[2017-11-21] MEDS: TRAMADOL HCL 50 MG TABLET PO PRN ×3 (04:58→19:32)
[2017-11-21] MEDS: CLONAZEPAM 1 MG TABLET PO SCH ×3 (05:00→21:43)
[2017-11-21] MEDS: OMEPRAZOLE 40 MG PO SCH (05:02)
[2017-11-21] MEDS: TOPIRAMATE 100 MG TABLET PO SCH ×2 (10:35→21:43)
[2017-11-21] MEDS: DULOXETINE HCL 30 MG CAPSULE.DR PO SCH ×2 (10:35→21:43)
[2017-11-21] MEDS: BENZTROPINE MESYLATE 1 MG TABLET PO SCH ×2 (10:36→17:52)
[2017-11-21] MEDS: RISPERIDONE 1 MG TABLET PO SCH ×2 (10:36→21:43)
[2017-11-21] MEDS: ACETAMINOPHEN 325 MG TABLET PO PRN ×2 (11:57→23:46)
--- NOTE | 2017-11-21 15:44 | PDOC PROGRESS REPORT ---
Subjective Progress Note for:: 11/21/17 Subjective:: Patient is seen resting in bed. He is awake, alert and oriented 3. He states he is waiting to eat lunch He denies any chest pain, shortness of breath or dyspnea. Denies any cough. He denies any fevers or chills. He denies any nausea, vomiting or abdominal pain. He states the wound VAC does hurt from time to time on his abdomen. He states he is hungry. He denies any arthralgias or myalgias. He states last night he did have some back pain. Remaining review of systems are negative. Reason For Visit: SEPTIC SHOCK Physical Exam Vital Signs: Temp Pulse Resp BP Pulse Ox 98.5 F 114 H 26 H 121/72 98 11/21/17 10:59 11/21/17 10:59 11/21/17 10:59 11/21/17 10:59 11/21/17 10:59 Intake & Output 11/20/17 11/21/17 11/22/17 06:59 06:59 06:59 Intake Total 5614 2040 Output Total 2300 1550 Balance 3314 490 Weight 122.2 kg 123.2 kg General appearance: PRESENT: no acute distress, obese, well-developed, well- nourished Head exam: PRESENT: atraumatic, normocephalic Eye exam: PRESENT: conjunctiva pink, EOMI, PERRLA. ABSENT: scleral icterus Ear exam: PRESENT: normal external ear exam Mouth exam: PRESENT: moist, tongue midline Neck exam: ABSENT: carotid bruit, JVD, lymphadenopathy, thyromegaly Respiratory exam: PRESENT: clear to auscultation tolu, symmetrical, unlabored. ABSENT: rales, rhonchi, wheezes Cardiovascular exam: PRESENT: RRR. ABSENT: diastolic murmur, rubs, systolic murmur Pulses: PRESENT: normal dorsalis pedis pul Vascular exam: PRESENT: normal capillary refill GI/Abdominal exam: PRESENT: normal bowel sounds, soft. ABSENT: distended, guarding, mass, organolmegaly, rebound, tenderness Rectal exam: PRESENT: deferred Gentrourinary exam: PRESENT: erythema Extremities exam: PRESENT: full ROM. ABSENT: calf tenderness, clubbing, pedal edema Musculoskeletal exam: PRESENT: ambulatory, full ROM, normal inspection Neurological exam: PRESENT: alert, awake, oriented to person, oriented to place , oriented to time, oriented to situation, CN II-XII grossly intact, other - developmentally delayed. ABSENT: motor sensory deficit Skin exam: PRESENT: dry, intact, warm, other - wound vac to mid abdominal incision,. ABSENT: cyanosis, rash Results Laboratory Results: 11/20/17 10:23 11/19/17 14:26 Impressions: Abdomen Ultrasound 11/08/17 05:00 IMPRESSION: Cholelithiasis with borderline gallbladder wall thickening and positive ultrasonographic Dennis's sign. Further evaluation with HIDA scan may be beneficial. Abdomen/Pelvis CT 11/08/17 08:13 IMPRESSION: Stones in the gallbladder with pericholecystic inflammatory change worrisome for acute cholecystitis. Findings discussed with patient's attending surgeon Chest X-Ray 11/12/17 06:00 IMPRESSION: No focal infiltrates. Chest CT 11/18/17 00:00 IMPRESSION: NO SIGNIFICANT FINDING ON NON-CONTRASTED CHEST CT. Lung Scan-VQ NM 11/19/17 00:00 IMPRESSION: Low probability scan for pulmonary embolus Assessment & Plan - Diagnosis (1) Acute gangrenous cholecystitis Is this a current diagnosis for this admission?: Yes Plan: Is postop emergent cholecystectomy. This was complicated by wound separation requiring VAC dressing (2) Abdominal pain Qualifiers: Abdominal location: right upper quadrant Qualified Code(s): R10.11 - Right upper quadrant pain Is this a current diagnosis for this admission?: Yes Plan: Secondary to wound VAC this is improving (3) Acute kidney injury Is this a current diagnosis for this admission?: Yes Plan: Resolved. (4) Cholelithiasis Qualifiers: Cholelithiasis location: gallbladder Cholecystitis presence: with cholecystitis Cholecystitis acuity: acute Biliary obstruction: with biliary obstruction Qualified Code(s): K80.01 - Calculus of gallbladder with acute cholecystitis with obstruction Is this a current diagnosis for this admission?: Yes Plan: Postop cholecystectomy (5) Obesity Qualifiers: Obesity type: due to excess calories Body mass index: BMI 38.0-38.9 Is this a current diagnosis for this admission?: Yes (6) Septic shock Is this a current diagnosis for this admission?: Yes Plan: Resolved (7) Sinus tachycardia Is this a current diagnosis for this admission?: Yes Plan: Likely secondary to anemia and deconditioning postoperatively. VQ scan showed low probability for PE. Noncontrast CT of the chest was normal. He had a mild bump in his white count to 14,000 yesterday is down to 10 today. - Time Time Spent with patient: 25-34 minutes Total Critical Time (Minutes): 20 Medications reviewed and adjusted accordingly: Yes Anticipated discharge: Home with Homehealth
--- NOTE | 2017-11-21 17:48 | PDOC PROGRESS REPORT ---
Subjective Progress Note for:: 11/21/17 Subjective:: comfortable. no pains Reason For Visit: SEPTIC SHOCK Physical Exam Vital Signs: Temp Pulse Resp BP Pulse Ox 98.0 F 129 H 21 H 116/72 100 11/21/17 15:02 11/21/17 15:02 11/21/17 15:02 11/21/17 15:02 11/21/17 15:02 Intake & Output 11/20/17 11/21/17 11/22/17 06:59 06:59 06:59 Intake Total 5614 2040 591 Output Total 2300 1550 1125 Balance 3314 490 -534 Weight 122.2 kg 123.2 kg Exam: wound vac in place. abd is soft and non tender Results Laboratory Results: 11/20/17 10:23 11/19/17 14:26 Impressions: Abdomen Ultrasound 11/08/17 05:00 IMPRESSION: Cholelithiasis with borderline gallbladder wall thickening and positive ultrasonographic Dennis's sign. Further evaluation with HIDA scan may be beneficial. Abdomen/Pelvis CT 11/08/17 08:13 IMPRESSION: Stones in the gallbladder with pericholecystic inflammatory change worrisome for acute cholecystitis. Findings discussed with patient's attending surgeon Chest X-Ray 11/12/17 06:00 IMPRESSION: No focal infiltrates. Chest CT 11/18/17 00:00 IMPRESSION: NO SIGNIFICANT FINDING ON NON-CONTRASTED CHEST CT. Lung Scan-VQ NM 11/19/17 00:00 IMPRESSION: Low probability scan for pulmonary embolus Assessment & Plan - Time Time Spent with patient: 15-24 minutes - Plan Summary Plan Summary: Continue wound vac at home. Follow up at surgical clinic in 2 weeks
[2017-11-22] MEDS: CLONAZEPAM 1 MG TABLET PO SCH ×3 (05:15→21:52)
[2017-11-22] MEDS: OMEPRAZOLE 40 MG PO SCH (05:16)
[2017-11-22 05:31] LABS: ABSOLUTE BASOPHILS # (AUTO) 0.1 10^3/uL (0.0-0.2); ABSOLUTE LYMPHOCYTES (AUTO) 1.8 10^3/uL (0.5-4.7); ABSOLUTE MONOCYTES (AUTO) 0.8 10^3/uL (0.1-1.4); ABSOLUTE NEUT (AUTO) 5.7 10^3/uL (1.7-8.2); BASOPHILS % (AUTO) 0.8 % (0-2); EOSINOPHILS % (AUTO) 0.4 % (0-6); HEMATOCRIT 24.7 % (37.9-51.0); HEMOGLOBIN 8.3 g/dL (13.5-17.0); LYMPHOCYTES % (AUTO) 21.3 % (13-45); MEAN CORPUSCULAR HEMOGLOBIN 28.1 pg (27.0-33.4); MEAN CORPUSCULAR HGB CONC 33.5 g/dL (32.0-36.0); MEAN CORPUSCULAR VOLUME 84 fl (80-97); MONOCYTES % (AUTO) 9.4 % (3-13); PLATELET COUNT 345 10^3/uL (150-450); RED BLOOD COUNT 2.94 10^6/uL (4.35-5.55); RED CELL DISTRIBUTION WIDTH 14.4 % (11.5-14.0); SEGMENTED NEUTROPHILS % (AUTO) 68.1 % (42-78); TOTAL CELLS COUNTED % (AUTO) 100 %; WHITE BLOOD COUNT 8.4 10^3/uL (4.0-10.5)
[2017-11-22 05:55] LABS: ANION GAP 12 (5-19); BLOOD UREA NITROGEN 4 mg/dL (7-20); CALCIUM 8.3 mg/dL (8.4-10.2); CARBON DIOXIDE 22 mmol/L (22-30); CHLORIDE 110 mmol/L (98-107); GLUCOSE 96 mg/dL (75-110); POTASSIUM 4.3 mmol/L (3.6-5.0); SODIUM 143.5 mmol/L (137-145)
[2017-11-22] MEDS: TRAMADOL HCL 50 MG TABLET PO PRN ×2 (08:48→19:20)
[2017-11-22] MEDS: TOPIRAMATE 100 MG TABLET PO SCH ×2 (09:27→21:53)
[2017-11-22] MEDS: BENZTROPINE MESYLATE 1 MG TABLET PO SCH ×2 (09:27→17:19)
[2017-11-22] MEDS: DULOXETINE HCL 30 MG CAPSULE.DR PO SCH ×2 (09:28→21:53)
[2017-11-22] MEDS: RISPERIDONE 1 MG TABLET PO SCH ×2 (09:28→21:52)
[2017-11-22] MEDS: ACETAMINOPHEN 325 MG TABLET PO PRN (09:37)
--- NOTE | 2017-11-22 17:24 | PDOC PROGRESS REPORT ---
Subjective Progress Note for:: 11/22/17 Subjective:: Patient is seen resting in bed. He is awake, alert and oriented 3. He states he is waiting to eat lunch He denies any chest pain, shortness of breath or dyspnea. Denies any cough. He denies any fevers or chills. He denies any nausea, vomiting or abdominal pain. He states the wound VAC does hurt from time to time on his abdomen. He states he is hungry. He denies any arthralgias or myalgias. He denies any back pain today Remaining review of systems are negative. Reason For Visit: SEPTIC SHOCK Physical Exam Vital Signs: Temp Pulse Resp BP Pulse Ox 98.7 F 120 H 17 113/64 98 11/22/17 15:23 11/22/17 15:23 11/22/17 15:23 11/22/17 15:23 11/22/17 15:23 Intake & Output 11/21/17 11/22/17 11/23/17 06:59 06:59 06:59 Intake Total 2040 1182 Output Total 1550 2225 Balance 490 -1043 Weight 123.2 kg 121.3 kg General appearance: PRESENT: no acute distress, obese, well-developed, well- nourished Head exam: PRESENT: atraumatic, normocephalic Eye exam: PRESENT: conjunctiva pink, EOMI, PERRLA. ABSENT: scleral icterus Ear exam: PRESENT: normal external ear exam Mouth exam: PRESENT: moist, tongue midline Neck exam: PRESENT: carotid bruit Respiratory exam: PRESENT: clear to auscultation tolu, symmetrical, unlabored. ABSENT: rales, rhonchi, wheezes Cardiovascular exam: PRESENT: bradycardia Pulses: PRESENT: normal dorsalis pedis pul Vascular exam: PRESENT: normal capillary refill GI/Abdominal exam: PRESENT: normal bowel sounds - around abdominal wound vac. No erythema, soft, tenderness Rectal exam: PRESENT: deferred Extremities exam: PRESENT: full ROM. ABSENT: calf tenderness, clubbing, pedal edema Musculoskeletal exam: PRESENT: ambulatory Neurological exam: PRESENT: alert, awake, oriented to person, oriented to place , oriented to time, oriented to situation, CN II-XII grossly intact. ABSENT: motor sensory deficit Psychiatric exam: PRESENT: appropriate affect, normal mood. ABSENT: homicidal ideation, suicidal ideation Skin exam: PRESENT: dry, intact, warm. ABSENT: cyanosis, rash Results Laboratory Results: 11/22/17 04:51 11/22/17 04:51 11/22/17 11/22/17 04:51 04:51 WBC 8.4 RBC 2.94 L Hgb 8.3 L Hct 24.7 L MCV 84 MCH 28.1 MCHC 33.5 RDW 14.4 H Plt Count 345 Seg Neutrophils % 68.1 Lymphocytes % 21.3 Monocytes % 9.4 Eosinophils % 0.4 Basophils % 0.8 Absolute Neutrophils 5.7 Absolute Lymphocytes 1.8 Absolute Monocytes 0.8 Absolute Eosinophils 0.0 Absolute Basophils 0.1 Sodium 143.5 Potassium 4.3 Chloride 110 H Carbon Dioxide 22 Anion Gap 12 BUN 4 L Creatinine 0.74 Est GFR ( Amer) > 60 Est GFR (Non-Af Amer) > 60 Glucose 96 Calcium 8.3 L Impressions: Abdomen Ultrasound 11/08/17 05:00 IMPRESSION: Cholelithiasis with borderline gallbladder wall thickening and positive ultrasonographic Dennis's sign. Further evaluation with HIDA scan may be beneficial. Abdomen/Pelvis CT 11/08/17 08:13 IMPRESSION: Stones in the gallbladder with pericholecystic inflammatory change worrisome for acute cholecystitis. Findings discussed with patient's attending surgeon Chest X-Ray 11/12/17 06:00 IMPRESSION: No focal infiltrates. Chest CT 11/18/17 00:00 IMPRESSION: NO SIGNIFICANT FINDING ON NON-CONTRASTED CHEST CT. Lung Scan-VQ NM 11/19/17 00:00 IMPRESSION: Low probability scan for pulmonary embolus Assessment & Plan - Diagnosis (1) Acute gangrenous cholecystitis Is this a current diagnosis for this admission?: Yes Plan: Is postop emergent cholecystectomy. This was complicated by wound separation requiring VAC dressing (2) Abdominal pain Qualifiers: Abdominal location: right upper quadrant Qualified Code(s): R10.11 - Right upper quadrant pain Is this a current diagnosis for this admission?: Yes Plan: Secondary to wound VAC this is improving (3) Acute kidney injury Is this a current diagnosis for this admission?: Yes Plan: Resolved. (4) Cholelithiasis Qualifiers: Cholelithiasis location: gallbladder Cholecystitis presence: with cholecystitis Cholecystitis acuity: acute Biliary obstruction: with biliary obstruction Qualified Code(s): K80.01 - Calculus of gallbladder with acute cholecystitis with obstruction Is this a current diagnosis for this admission?: Yes Plan: Postop cholecystectomy (5) Obesity Qualifiers: Obesity type: due to excess calories Body mass index: BMI 38.0-38.9 Is this a current diagnosis for this admission?: Yes (6) Septic shock Is this a current diagnosis for this admission?: Yes Plan: Resolved (7) Sinus tachycardia Is this a current diagnosis for this admission?: Yes Plan: Likely secondary to anemia and deconditioning postoperatively. VQ scan showed low probability for PE. Noncontrast CT of the chest was normal. He had a mild bump in his white count to 14,000 yesterday is down to 10 today. - Time Time Spent with patient: 15-24 minutes Total Critical Time (Minutes): 15 Medications reviewed and adjusted accordingly: Yes Anticipated discharge: Home with Homehealth Within: within 24 hours
--- NOTE | 2017-11-22 22:58 | PDOC PROGRESS REPORT ---
Subjective Progress Note for:: 11/22/17 Subjective:: Feels well. Tolerating a diet well. Reason For Visit: SEPTIC SHOCK Physical Exam Vital Signs: Temp Pulse Resp BP Pulse Ox 98.1 F 74 17 131/70 H 98 11/22/17 19:53 11/22/17 19:53 11/22/17 19:53 11/22/17 19:53 11/22/17 19:53 Intake & Output 11/21/17 11/22/17 11/23/17 06:59 06:59 06:59 Intake Total 2040 1182 Output Total 1550 2225 Balance 490 -1043 Weight 123.2 kg 121.3 kg General appearance: PRESENT: no acute distress, cooperative Respiratory exam: PRESENT: clear to auscultation tolu Cardiovascular exam: PRESENT: RRR GI/Abdominal exam: PRESENT: other - Soft, nondistended, nontender to palpation. Wound VAC in place. No erythema. Results Laboratory Results: 11/22/17 04:51 11/22/17 04:51 11/22/17 11/22/17 04:51 04:51 WBC 8.4 RBC 2.94 L Hgb 8.3 L Hct 24.7 L MCV 84 MCH 28.1 MCHC 33.5 RDW 14.4 H Plt Count 345 Seg Neutrophils % 68.1 Lymphocytes % 21.3 Monocytes % 9.4 Eosinophils % 0.4 Basophils % 0.8 Absolute Neutrophils 5.7 Absolute Lymphocytes 1.8 Absolute Monocytes 0.8 Absolute Eosinophils 0.0 Absolute Basophils 0.1 Sodium 143.5 Potassium 4.3 Chloride 110 H Carbon Dioxide 22 Anion Gap 12 BUN 4 L Creatinine 0.74 Est GFR ( Amer) > 60 Est GFR (Non-Af Amer) > 60 Glucose 96 Calcium 8.3 L Impressions: Abdomen Ultrasound 11/08/17 05:00 IMPRESSION: Cholelithiasis with borderline gallbladder wall thickening and positive ultrasonographic Dennis's sign. Further evaluation with HIDA scan may be beneficial. Abdomen/Pelvis CT 11/08/17 08:13 IMPRESSION: Stones in the gallbladder with pericholecystic inflammatory change worrisome for acute cholecystitis. Findings discussed with patient's attending surgeon Chest X-Ray 11/12/17 06:00 IMPRESSION: No focal infiltrates. Chest CT 11/18/17 00:00 IMPRESSION: NO SIGNIFICANT FINDING ON NON-CONTRASTED CHEST CT. Lung Scan-VQ NM 11/19/17 00:00 IMPRESSION: Low probability scan for pulmonary embolus Assessment & Plan - Diagnosis (1) Acute gangrenous cholecystitis Is this a current diagnosis for this admission?: Yes Plan: Status post open cholecystectomy. Patient looks good. Will discharge patient home with a wound VAC when it is set up at home.
[2017-11-23] MEDS: CLONAZEPAM 1 MG TABLET PO SCH ×2 (06:32→13:58)
[2017-11-23] MEDS: OMEPRAZOLE 40 MG PO SCH (06:35)
[2017-11-23] MEDS: RISPERIDONE 1 MG TABLET PO SCH (10:09)
[2017-11-23] MEDS: TOPIRAMATE 100 MG TABLET PO SCH (10:09)
[2017-11-23] MEDS: DULOXETINE HCL 30 MG CAPSULE.DR PO SCH (10:09)
[2017-11-23] MEDS: BENZTROPINE MESYLATE 1 MG TABLET PO SCH ×2 (10:09→17:41)
[2017-11-23 15:25] LABS: HEMATOCRIT 25.7 % (37.9-51.0); HEMOGLOBIN 8.6 g/dL (13.5-17.0); MEAN CORPUSCULAR HEMOGLOBIN 28.1 pg (27.0-33.4); MEAN CORPUSCULAR HGB CONC 33.4 g/dL (32.0-36.0); MEAN CORPUSCULAR VOLUME 84 fl (80-97); PLATELET COUNT 344 10^3/uL (150-450); RED BLOOD COUNT 3.06 10^6/uL (4.35-5.55); RED CELL DISTRIBUTION WIDTH 14.2 % (11.5-14.0); WHITE BLOOD COUNT 6.4 10^3/uL (4.0-10.5)
[2017-11-23] MEDS: TRAMADOL HCL 50 MG TABLET PO PRN (17:41)
[2017-11-23 17:53] VITALS: BP 125/77
--- NOTE | 2017-11-23 18:10 | DISCHARGE SUMMARY E ---
Discharge Summary NAME: BILL BACON : 1990 AGE: 27Y ADMITTED: 11/08/2017 DISCHARGED: 11/23/2017 DISCHARGE DIAGNOSES: ACUTE CHOLECYSTITIS, SEPSIS, ACUTE RENAL INJURY, SCHIZOPHRENIA, POSTOPERATIVE BLEED. GASTRITIS. PROCEDURE PERFORMED DURING HOSPITALIZATION: Laparoscopic cholecystectomy with conversion to an open cholecystectomy with extreme difficulty modifier. Performed by Dr. Armendariz on 11/08/2017. Wound exploration with control of hemorrhage performed by Dr. Armendariz on 11/13/2017. Esophagogastroduodenoscopy with biopsies performed by Dr. Armendariz on 11/18/2017. HOSPITAL COURSE: The patient underwent initial procedure requiring stay in the intensive care unit for management of his sepsis. The patient had gradual improvement. His postoperative course was noteworthy for a postoperative bleed that was managed with wound exploration. He did have to receive 3 units of blood during his hospital stay. His hematocrit was stable at the time of discharge, with hemoglobin of 8.6 with the prior 3 days' hemoglobin being 8.6, 9.0, 8.3. The patient was noted with intermittent tachycardia that was noted to be sinus tachycardia that was felt to be due to his anemia for which he did receive blood transfusion. Although the patient still had mild tachycardia, VQ scan demonstrated a low probability scan and CT of the chest was unremarkable. The patient had no shortness of breath nor chest pain at the time of discharge and his O2 saturations on room air were 98-99%. The patient was tolerating a diet well. His wound was managed with a Wound Vac and it was granulating in at the time of discharge. The patient's renal function returned to normal with hydration. The patient is now being discharged to home in good condition. He is encouraged to stay active but avoid strenuous activity. He may resume his home medications. Additional medication is tramadol 50 mg p.o. q.6 hours as needed for pain. He will follow up with Dr. Armendariz or Miriam Mancuso at the [facility] in 1 week. Home health was arranged for his Wound Vac, which will be changed q.3 days. DICTATING PHYSICIAN: CHIARA CRISTOBAL M.D. [id number] PHY#: [id number] ID: [id number] JOB#: [id number] ACCT: [id number] cc:LES ARMENDARIZ M.D. Manjula ZHANG RMadiha [facility], >
--- NOTE | 2017-11-23 18:17 | PDOC PROGRESS REPORT ---
Subjective Progress Note for:: 11/23/17 Subjective:: Patient is laying in bed with his family at bedside. Patient is awaiting surgical input as to his wound VAC. Was encouraged to be more ambulatory and to use his incentive spirometry. Reason For Visit: SEPTIC SHOCK Physical Exam Vital Signs: Temp Pulse Resp BP Pulse Ox 97.6 F 108 H 16 125/77 100 11/23/17 14:58 11/23/17 14:58 11/23/17 14:58 11/23/17 14:58 11/23/17 14:58 Intake & Output 11/22/17 11/23/17 11/24/17 06:59 06:59 06:59 Intake Total 1182 1600 Output Total 2225 1900 Balance -1043 -300 Weight 121.3 kg 121.4 kg General appearance: PRESENT: no acute distress, well-nourished Head exam: PRESENT: atraumatic, normocephalic Eye exam: PRESENT: conjunctiva pink, EOMI, PERRLA. ABSENT: scleral icterus Ear exam: PRESENT: normal external ear exam Mouth exam: PRESENT: moist, tongue midline Neck exam: ABSENT: carotid bruit, JVD, lymphadenopathy, thyromegaly Respiratory exam: PRESENT: clear to auscultation tolu. ABSENT: rales, rhonchi, wheezes Cardiovascular exam: PRESENT: tachycardia. ABSENT: diastolic murmur, rubs, systolic murmur Pulses: PRESENT: normal dorsalis pedis pul Vascular exam: PRESENT: normal capillary refill GI/Abdominal exam: PRESENT: guarding, normal bowel sounds, other - Wound VAC in place. ABSENT: distended, mass, organolmegaly, rebound, tenderness Rectal exam: PRESENT: deferred Extremities exam: PRESENT: full ROM. ABSENT: calf tenderness, clubbing, pedal edema Neurological exam: PRESENT: alert, awake, oriented to person, oriented to place , oriented to situation. ABSENT: motor sensory deficit Psychiatric exam: ABSENT: homicidal ideation, suicidal ideation Skin exam: PRESENT: dry, intact, warm. ABSENT: cyanosis, rash Results Laboratory Results: 11/23/17 15:16 11/22/17 04:51 11/23/17 15:16 WBC 6.4 RBC 3.06 L Hgb 8.6 L Hct 25.7 L MCV 84 MCH 28.1 MCHC 33.4 RDW 14.2 H Plt Count 344 Impressions: Abdomen Ultrasound 11/08/17 05:00 IMPRESSION: Cholelithiasis with borderline gallbladder wall thickening and positive ultrasonographic Dennis's sign. Further evaluation with HIDA scan may be beneficial. Abdomen/Pelvis CT 11/08/17 08:13 IMPRESSION: Stones in the gallbladder with pericholecystic inflammatory change worrisome for acute cholecystitis. Findings discussed with patient's attending surgeon Chest X-Ray 11/12/17 06:00 IMPRESSION: No focal infiltrates. Chest CT 11/18/17 00:00 IMPRESSION: NO SIGNIFICANT FINDING ON NON-CONTRASTED CHEST CT. Lung Scan-VQ NM 11/19/17 00:00 IMPRESSION: Low probability scan for pulmonary embolus Assessment & Plan - Time Time Spent with patient: 15-24 minutes Medications reviewed and adjusted accordingly: Yes Anticipated discharge: Home Within: within 48 hours - Plan Summary Plan Summary: Acute gangrenous cholecystitis status post emergent cholecystectomy complicated by wound separation requiring wound VAC 2. Acute kidney injury resolved 3. Cholelithiasis 4. Septic shock secondary to #1 above resolved 5. Sinus tachycardia
== END 2017-11-23 19:50 | disposition home health service (06) | DRG 853 ==
LOC: ER 04:28 → EH 08:08 → UNDOADMIN 08:09 → EH 08:09 → ICU 09:33 → 4S 11-12 20:52
PROVIDERS: ADMIT Surgery; ATTEND Surgery
PROC: 0FJ44ZZ Inspection of Gallbladder, Percutaneous Endoscopic Approach (ICD-10-PCS; 2017-11-08)
PROC: 0W9F00Z Drainage of Abdominal Wall with Drainage Device, Open Approach (ICD-10-PCS; 2017-11-08)
PROC: 5A1935Z Respiratory Ventilation, Less than 24 Consecutive Hours (ICD-10-PCS; 2017-11-08)
PROC: 02HV33Z Insertion of Infusion Device into Superior Vena Cava, Percutaneous Approach (ICD-10-PCS; 2017-11-08)
PROC: 0FT40ZZ Resection of Gallbladder, Open Approach (ICD-10-PCS; principal; 2017-11-08 14:15)
PROC: 30233N1 Transfusion of Nonautologous Red Blood Cells into Peripheral Vein, Percutaneous Approach (ICD-10-PCS; 2017-11-10)
PROC: 0W3P0ZZ Control Bleeding in Gastrointestinal Tract, Open Approach (ICD-10-PCS; 2017-11-13)
PROC: 0JJT0ZZ Inspection of Trunk Subcutaneous Tissue and Fascia, Open Approach (ICD-10-PCS; 2017-11-13)
PROC: 30233N1 Transfusion of Nonautologous Red Blood Cells into Peripheral Vein, Percutaneous Approach (ICD-10-PCS; 2017-11-15)
PROC: 0DD38ZX Extraction of Lower Esophagus, Via Natural or Artificial Opening Endoscopic, Diagnostic (ICD-10-PCS; 2017-11-18)
PROC: 0DD78ZX Extraction of Stomach, Pylorus, Via Natural or Artificial Opening Endoscopic, Diagnostic (ICD-10-PCS; 2017-11-18)
DX: A41.9 Sepsis, unspecified organism (principal); R65.21 Severe sepsis with septic shock; J96.00 Acute respiratory failure, unspecified whether with hypoxia or hypercapnia; K80.12 Calculus of gallbladder with acute and chronic cholecystitis without obstruction; K91.89 Other postprocedural complications and disorders of digestive system; T81.4XXA Infection following a procedure, initial encounter; N17.9 Acute kidney failure, unspecified; F84.0 Autistic disorder; B96.20 Unspecified Escherichia coli [E. coli] as the cause of diseases classified elsewhere; D64.9 Anemia, unspecified; R00.0 Tachycardia, unspecified; K29.00 Acute gastritis without bleeding; K20.9 Esophagitis, unspecified; F20.9 Schizophrenia, unspecified; E66.01 Morbid (severe) obesity due to excess calories; Z68.36 Body mass index [BMI] 36.0-36.9, adult
CPT/HCPCS: 36415; 36430; 36600; 43239; 71045; 71250; 74176; 76705; 78582; 790; 80048; 80053; 81001; 82272; 82803; 82962; 83010; 83605; 83615; 83690; 83735; 84100; 85025; 85027; 85610; 85730; 86850; 86900; 86901; 86920; 87040; 87070; 87075; 87077; 87086; 87186; 87205; 88304; 88305; 88312; 88342; 93005; 93010; 93976; 94002; 94003; 94799; 96361; 96365; 96375; 99291; A9540; A9567; C1751; C9290; J0131; J0171; J0290; J0330; J1100; J1170; J1200; J1335; J1610; J1630; J1642; J1741; J1885; J1956; J2060; J2250; J2270; J2310; J2370; J2405; J2543; J2550; J2704; J2765; J3010; J3480; J3490; J7030; J7050; J7060; J7120; P9016; Q9969; S0028; S0119; S0164

== ENCOUNTER → 2017-11-29 | Outpatient (CLI) | payer BC, MEDICARE, MEDICAID ==
[2017-11-29 16:42] LABS: APPEARANCE,URINE CLEAR; BILIRUBIN,URINE NEGATIVE (NEGATIVE); COLOR,URINE YELLOW; GLUCOSE, URINE NEGATIVE (NEGATIVE); KETONES,URINE NEGATIVE (NEGATIVE); LEUKOCYTE ESTERASE,URINE NEGATIVE (NEGATIVE); NITRITE,URINE NEGATIVE (NEGATIVE); PROTEIN,URINE NEGATIVE (NEGATIVE); UROBILINOGEN,URINE NEGATIVE mg/dL (<2.0)
[2017-11-29 17:46] LABS: ABSOLUTE LYMPHOCYTES (AUTO) 1.3 10^3/uL (0.5-4.7); ABSOLUTE MONOCYTES (AUTO) 0.7 10^3/uL (0.1-1.4); ABSOLUTE NEUT (AUTO) 7.9 10^3/uL (1.7-8.2); BASOPHILS % (AUTO) 0.5 % (0-2); EOSINOPHILS % (AUTO) 0.4 % (0-6); HEMATOCRIT 30.3 % (37.9-51.0); HEMOGLOBIN 9.9 g/dL (13.5-17.0); LYMPHOCYTES % (AUTO) 13.4 % (13-45); MEAN CORPUSCULAR HEMOGLOBIN 27.2 pg (27.0-33.4); MEAN CORPUSCULAR HGB CONC 32.7 g/dL (32.0-36.0); MEAN CORPUSCULAR VOLUME 83 fl (80-97); MONOCYTES % (AUTO) 6.7 % (3-13); PLATELET COUNT 322 10^3/uL (150-450); RED BLOOD COUNT 3.64 10^6/uL (4.35-5.55); RED CELL DISTRIBUTION WIDTH 14.8 % (11.5-14.0); TOTAL CELLS COUNTED % (AUTO) 100 %; WHITE BLOOD COUNT 9.9 10^3/uL (4.0-10.5)
[2017-11-29 18:13] LABS: ANION GAP 19 (5-19); BLOOD UREA NITROGEN 7 mg/dL (7-20); CALCIUM 9.4 mg/dL (8.4-10.2); CARBON DIOXIDE 22 mmol/L (22-30); CHLORIDE 106 mmol/L (98-107); GLUCOSE 139 mg/dL (75-110); POTASSIUM 4.3 mmol/L (3.6-5.0); SODIUM 146.7 mmol/L (137-145)
== END ==
LOC: OD 16:13
PROVIDERS: ATTEND Internal Medicine
DX: D64.89 Other specified anemias (principal); N39.0 Urinary tract infection, site not specified; N19 Unspecified kidney failure; R39.81 Functional urinary incontinence
CPT/HCPCS: 36415; 80048; 81001; 85025

== ENCOUNTER → 2017-12-21 | Outpatient (CLI) | payer BC, MEDICARE, MEDICAID | LOC: OD 12:08 | PROVIDERS: ATTEND Internal Medicine | DX: E11.9 Type 2 diabetes mellitus without complications (principal); A04.72 Enterocolitis due to Clostridium difficile, not specified as recurrent | CPT/HCPCS: 36415; 83036; 87493 ==

== ENCOUNTER → 2017-12-28 | Outpatient (CLI) | payer BC, MEDICARE, MEDICAID ==
[2017-12-28 15:44] LABS: ABSOLUTE BASOPHILS # (AUTO) 0.1 10^3/uL (0.0-0.2); ABSOLUTE LYMPHOCYTES (AUTO) 1.7 10^3/uL (0.5-4.7); ABSOLUTE MONOCYTES (AUTO) 0.4 10^3/uL (0.1-1.4); BASOPHILS % (AUTO) 0.9 % (0-2); EOSINOPHILS % (AUTO) 0.6 % (0-6); HEMATOCRIT 36.4 % (37.9-51.0); HEMOGLOBIN 11.8 g/dL (13.5-17.0); LYMPHOCYTES % (AUTO) 27.5 % (13-45); MEAN CORPUSCULAR HEMOGLOBIN 25.4 pg (27.0-33.4); MEAN CORPUSCULAR HGB CONC 32.6 g/dL (32.0-36.0); PLATELET COUNT 188 10^3/uL (150-450); RED BLOOD COUNT 4.66 10^6/uL (4.35-5.55); RED CELL DISTRIBUTION WIDTH 15.2 % (11.5-14.0); TOTAL CELLS COUNTED % (AUTO) 100 %; WHITE BLOOD COUNT 6.2 10^3/uL (4.0-10.5)
[2017-12-28 15:53] LABS: MEAN CORPUSCULAR VOLUME 78 fl (80-97)
== END ==
LOC: OD 11:51
PROVIDERS: ATTEND Internal Medicine
DX: D64.9 Anemia, unspecified (principal)
CPT/HCPCS: 36415; 85025

== ENCOUNTER → 2018-03-29 | Outpatient (CLI) | payer BC, MEDICARE, MEDICAID ==
[2018-03-29 12:16] LABS: ABSOLUTE LYMPHOCYTES (AUTO) 1.3 10^3/uL (0.5-4.7); ABSOLUTE MONOCYTES (AUTO) 0.4 10^3/uL (0.1-1.4); BASOPHILS % (AUTO) 0.8 % (0-2); EOSINOPHILS % (AUTO) 0.8 % (0-6); HEMATOCRIT 36.8 % (37.9-51.0); LYMPHOCYTES % (AUTO) 21.8 % (13-45); MEAN CORPUSCULAR HEMOGLOBIN 24.5 pg (27.0-33.4); MEAN CORPUSCULAR HGB CONC 32.6 g/dL (32.0-36.0); MEAN CORPUSCULAR VOLUME 75 fl (80-97); MONOCYTES % (AUTO) 7.2 % (3-13); PLATELET COUNT 165 10^3/uL (150-450); RED CELL DISTRIBUTION WIDTH 16.7 % (11.5-14.0); SEGMENTED NEUTROPHILS % (AUTO) 69.4 % (42-78); TOTAL CELLS COUNTED % (AUTO) 100 %; WHITE BLOOD COUNT 5.8 10^3/uL (4.0-10.5)
== END ==
LOC: OD 11:27
PROVIDERS: ATTEND Internal Medicine
DX: D64.9 Anemia, unspecified (principal); E11.9 Type 2 diabetes mellitus without complications
CPT/HCPCS: 36415; 83036; 85025

== ENCOUNTER → 2018-10-21 | Outpatient (CLI) | payer OTHER, MEDICARE, MEDICAID ==
[2018-10-21 11:26] LABS: HEMATOCRIT 37.5 % (37.9-51.0); HEMOGLOBIN 12.3 g/dL (13.5-17.0); MEAN CORPUSCULAR HEMOGLOBIN 26.3 pg (27.0-33.4); MEAN CORPUSCULAR HGB CONC 32.9 g/dL (32.0-36.0); MEAN CORPUSCULAR VOLUME 80 fl (80-97); PLATELET COUNT 158 10^3/uL (150-450); RED CELL DISTRIBUTION WIDTH 15.6 % (11.5-14.0); WHITE BLOOD COUNT 4.7 10^3/uL (4.0-10.5)
== END ==
LOC: OD 10:52
PROVIDERS: ATTEND Internal Medicine
DX: D64.9 Anemia, unspecified (principal); E11.8 Type 2 diabetes mellitus with unspecified complications
CPT/HCPCS: 36415; 83036; 85027